=== PATIENT | female | born 1970 | race Caucasian/White ===

== ENCOUNTER → 2016-08-02 | Outpatient (CLI) | payer BC ==
[2016-08-02 15:25] VITALS: BP 132/70; PULSE 98; RESP 16; TEMP 98.2
--- NOTE | 2016-08-03 07:12 | PN ---
DATE OF SERVICE: 08/02/2016 CHIEF COMPLAINT: Bariatric assessment. HISTORY OF PRESENT ILLNESS: Lacey Fuentes is a 46-year-old female for which her birthday is today, who had an adjustable gastric band removal on 07/12/2016. She is a little less than 3 weeks out. She reports having the adjustable gastric band for several years. Her highest weight was 268 pounds for a 5 foot 9 frame. She comes in weighing 229 pounds. She has been able to maintain a 39 pound weight loss with her adjustable gastric band; however, she had severe intolerance including gastric prolapse and complications from her band. Now she comes in for further evaluation for correction of her hiatal hernia. At her height of 5 foot 9, her ideal body weight is 168 pounds. Her previous body mass index was 39.7. Today she comes in with body mass index of 33.8. She has 39% excess weight loss. Separately, she also reports severe lower back pain including history of gout. She has bilateral hip pain including the left knee osteoarthritis. She has hypertension including known history of obstructive sleep apnea. At present, she has morbid obesity-related symptoms and now is looking for further surgical intervention. PAST MEDICAL HISTORY: 1. Sleep apnea. 2. Osteoarthritis of the bilateral hips. 3. Osteoarthritis of the bilateral knees. 4. Gastroesophageal reflux disease. 5. Obstructive sleep apnea. PAST SURGICAL HISTORY: 1. Removal of adjustable gastric band. 2. Upper endoscopy. MEDICATIONS: 1. Multivitamin. 2. Vyvanse. 3. Probiotics. 4. [place]. 5. Estradiol. 6. Calcium. 7. Vitamin C. ALLERGIES: ASPIRIN. SOCIAL HISTORY: Remote tobacco use. FAMILY HISTORY: Pertinent for morbid obesity. REVIEW OF SYSTEMS: CONSTITUTIONAL: Highest weight of 268 pounds. [place] body weight of 168 pounds. She is 61 pounds overweight. Percent excess weight loss is 39%. GASTROINTESTINAL: History of severe gastroesophageal reflux disease including hiatal hernia. Had intolerance to the gastric band for which her symptoms of reflux have improved. ENDOCRINE: No reports of thyroid or blood sugar glucose intolerance. HEENT: No troubles with vision or hearing. Has intermittent dysphagia. CHEST: No reports of dyspnea on exertion. Has history of snoring. No recent evaluation for obstructive sleep apnea. CARDIOVASCULAR: No reports of heart attack or chest pain. MUSCULOSKELETAL: Has osteoarthritis of the diffuse joints. NEURO: No reports of stroke or seizure disorders. PSYCH: History of depression without suicidal ideation. HEMATOLOGIC: No reports of easy bruising or bleeding. PHYSICAL EXAM: VITAL SIGNS: 98.2, 98, 16, 132/70, 5 foot 9, 229 pounds. Body mass is 33.8. GENERAL: Well-developed, pleasant female in no acute distress. ABDOMEN: All incisions granulated. No palpable incisional hernias or seromas. HEENT: No scleral icterus. Extraocular movements grossly intact. Moist mucosa. NECK: Supple without lymphadenopathy. CHEST: Nonlabored respirations. Equal bilateral excursions. CARDIOVASCULAR: Regular rate and rhythm. MUSCULOSKELETAL: No clubbing, cyanosis, or edema. Cranial nerves 2 through 12 grossly within normal limits. NEURO: No focal or lateralizing signs. Grossly within normal limits. PSYCH: Appropriate affect. Alert and oriented to person, place, and time. ASSESSMENT: 1. Morbid obesity due to excess calories. 2. Body mass index reduced from 39.7 down to 33.8. 3. History of complications from adjustable gastric band. 4. Gastroesophageal reflux disease. 5. Hypertension. 6. Obstructive sleep apnea. 7. Left knee osteoarthritis. 8. Bilateral osteoarthritis. 9. Gout. 10. 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 11. Dietary surveillance and counseling. 12. Diaphragmatic hiatal hernia. PLAN: 1. She had complications from her adjustable gastric band, including gastric prolapse as well as intolerance to adjustments. Her band is now removed and she has improvement of her symptoms. 2. She has a symptomatic diaphragmatic hernia and has persistent epigastric abdominal pain. She will need surgical correction with a laparoscopic hiatal hernia repair. 3. With her morbid obesity, she still has comorbidities related to her obesity, which would be corrected with weight loss. Alternatives including a sleeve gastrectomy and a Mariya-en-Y gastric bypass were described in detail. Given the severity of her reflux, she is looking into a Mariya-en-Y gastric bypass. 4. As she has untreated obstructive sleep apnea, recommend a sleep study assessment. 5. As she is a revisional procedure, she is much higher risk for leaks, bleeding, and complication of infection. She demonstrated understanding of the risks. 6. Will likely need at least 2 days inpatient hospitalization. 7. Deep venous thrombosis prophylaxis. 8. Antibiotic prophylaxis. 9. Again, recommend correction of her obstructive sleep apnea. [facility] NETWORKHerman
== END | disposition home or self-care (01) ==
LOC: BARWHC3 14:29
PROVIDERS: ATTEND Surgery Plastic and Reconstructive Surgery
DX: Z48.815 Encounter for surgical aftercare following surgery on the digestive system (principal); E66.01 Morbid (severe) obesity due to excess calories; Z68.33 Body mass index [BMI] 33.0-33.9, adult; Z98.84 Bariatric surgery status; K21.9 Gastro-esophageal reflux disease without esophagitis; I10 Essential (primary) hypertension; G47.33 Obstructive sleep apnea (adult) (pediatric); M17.12 Unilateral primary osteoarthritis, left knee; M10.9 Gout, unspecified; M47.9 Spondylosis, unspecified
CPT/HCPCS: 99211

== ENCOUNTER → 2016-08-07 | Outpatient (CLI) | payer BC ==
[2016-08-07 13:24] VITALS: BMI 33.7
== END | disposition home or self-care (01) ==
LOC: BARWHC3 08:57
PROVIDERS: ATTEND Surgery Plastic and Reconstructive Surgery
DX: Z71.3 Dietary counseling and surveillance (principal); E66.01 Morbid (severe) obesity due to excess calories; Z68.35 Body mass index [BMI] 35.0-35.9, adult
CPT/HCPCS: 97804

== ENCOUNTER 2016-08-09 10:48 | Emergency (ER) | payer BC ==
[2016-08-09] MEDS ORDERED: SODIUM CHLORIDE 0.9% 500 ML IV STA (12:31)
[2016-08-09] MEDS ORDERED: MECLIZINE 12.5 MG TAB PO STA (12:32)
[2016-08-09 12:48] LABS: Basophils # (A) 0.1 k/uL (0-0.2); Basophils % (A) 1 %; CH 29.3; CHCM 33.7; Eosinophils # (A) 0.3 k/uL (0-0.7); Eosinophils % (A) 5 %; HCT 39.4 % (34.0-46.0); HDW 2.55; HGB 12.8 gm/dL (11.4-16.0); Luc # (Auto) 0.16; Luc % (Auto) 3; Lymphocytes # (A) 1.6 k/uL (1.0-4.8); Lymphocytes % (A) 24 %; MCH 28.4 pg (25.0-35.0); MCHC 32.5 g/dL (31.0-37.0); MCV 87.4 fL (80.0-100.0); Mean Platelet Volume 7.9; Monocytes # (A) 0.5 k/uL (0-1.0); Monocytes % (A) 7 %; Neutrophils % (A) 61 %; RDW 12.6 % (11.5-15.5); WBC 6.5 k/uL (3.8-10.6); WBC (Perox) 6.56
--- NOTE | 2016-08-09 12:58 | ED ---
General Adult HPI - General Chief complaint: ENT Stated complaint: light headed Time Seen by Provider: 08/09/16 12:22 Source: patient, RN notes reviewed Mode of arrival: ambulatory Limitations: no limitations - History of Present Illness Initial comments: 46-year-old female presents emergency 5 chief complaint of lightheadedness and left-sided ear pain. Patient states that for about 2 or 3 weeks now she's had this lightheadedness/dizziness. Patient describes it as if the room is spinning to go black. Patient statesshe moves her head from her left shoulder forward that she has that sensation. Patient states sometimes it happens when changing position. Patient states that her vision just kind of goes black but she does not pass out. Patient states she has been having some left-sided ear pain as well with this. Patient states that she does have chronic problems with her ears and she is having ENT. Patient states that this pain started over the last few weeks prior to the lightheadedness occurring. Patient states she has not had any chest pain or shortness of breath with this. Patient denies any nausea or vomiting. Patient states she was concerned due to the continued symptoms and pain so she thought that she should be evaluated.Patient denies any recent fever, chills, shortness of breath, chest pain, back pain, abdominal pain, nausea vomiting, numbness or tingling, dysuria or hematuria, constipation or diarrhea, headaches or visual changes, or any other current symptoms. - Related Data Home Medications Medication Instructions Recorded Confirmed Ascorbic Acid [Vitamin C] 2 tab PO DAILY 07/05/16 08/09/16 Calcium Carbonate/Vitamin D3 1 tab PO DAILY 07/05/16 08/09/16 [Calcium 600-Vit D3 400 Caplet] Estradiol [Estrace] 1 tab PO DAILY 07/05/16 08/09/16 L.acidoph,Paracasei, B.lactis 1 tab PO DAILY 07/05/16 08/09/16 [Probiotic] Lisdexamfetamine Dimesylate 1 tab PO DAILY 07/05/16 08/09/16 [Vyvanse] Multivitamins, Thera [Multivitamin] 1 tab PO DAILY 07/05/16 08/09/16 Fluticasone Nasal [place] [Flonase 1 spr EA NOSTRIL DAILY PRN 08/09/16 08/09/16 Nasal [place]] Previous Rx's Medication Instructions Recorded Meclizine [Antivert] 12.5 mg PO Q6H #20 tablet 08/09/16 Allergies Allergy/AdvReac Type Severity Reaction Status Date / Time aspirin Allergy Swelling Verified 08/09/16 11:53 Review of Systems ROS Statement: Those systems with pertinent positive or pertinent negative responses have been documented in the HPI. ROS Other: All systems not noted in ROS Statement are negative. Past Medical History Past Medical History: Osteoarthritis (OA), Sleep Apnea/CPAP/BIPAP Additional Past Medical History / Comment(s): hiatal hernia History of Any Multi-Drug Resistant Organisms: None Reported Past Surgical History: Bariatric Surgery, Hysterectomy Additional Past Surgical History / Comment(s): GASTRIC BAND SURGERY GASTRIC BAND REMOVAL 07-12-16 Past Anesthesia/Blood Transfusion Reactions: No Reported Reaction Past Psychological History: ADD/ADHD, Depression Smoking Status: Former smoker Past Alcohol Use History: Occasional, Rare Past Drug Use History: None Reported General Exam - General Exam Comments Initial Comments: General: The patient is awake and alert, in no distress, and does not appear acutely ill. Eye: Pupils are equal, round and reactive to light, extra-ocular movements are intact; there is normal conjunctiva bilaterally. No signs of icterus. Ears, nose, mouth and throat: There are moist mucous membranes and no oral lesions. Patient does appear to have fluid and bulging behind the left tympanic membrane no associated erythema noted. Neck: The neck is supple, there is no tenderness. Cardiovascular: There is a regular rate and rhythm. No murmur, rub or gallop is appreciated. Respiratory: Lungs are clear to auscultation, respirations are non-labored, breath sounds are equal. No wheezes, stridor, rales, or rhonchi. Gastrointestinal: Soft, non-distended, non-tender abdomen without masses or organomegaly noted. There is no rebound or guarding present. No CVA tenderness. Bowel sounds are unremarkable. Back: There is no tenderness to palpation in the midline. There is no obvious deformity. No rashes noted. Musculoskeletal: Normal ROM, no tenderness, There is no pedal edema. There is no calf tenderness or swelling. Sensation intact. Pulses equal bilaterally 2+. Neurological: CN II-XII intact, There are no obvious motor or sensory deficits. Coordination appears grossly intact. Speech is normal. Skin: Skin is warm and dry and no rashes or lesions are noted. Psychiatric: Cooperative, appropriate mood & affect, normal judgment. Limitations: no limitations Course Vital Signs 08/09/16 08/09/16 08/09/16 10:52 14:11 14:13 Temperature 97.7 F Pulse Rate 85 70 Pulse Rate [ 79 Right Sitting Pulse Oximetery ] Pulse Rate [ 88 Right Standing Pulse Oximetery ] Pulse Rate [ 72 Right Supine Pulse Oximetery ] Respiratory 20 16 Rate Blood Pressure 136/78 104/56 Blood Pressure 122/67 [Left Arm Sitting] Blood Pressure 122/77 [Left Arm Standing] Blood Pressure 113/63 [Left Arm Supine] O2 Sat by Pulse 99 100 Oximetry EKG Findings - EKG Comments: EKG Findings:: normal sinus rhythm 70 bpm, normal axis, no atopy, no S-T depressions or elevations, Medical Decision Making - Medical Decision Making 46-year-old female presents with what sounds more like dizziness and left ear pain. She is to symptoms with certain movements of the head patient's or those are negative at this time. At this time patient's lab work is reviewed as well as CAT scan which are negative. Patient did have improvement to her symptoms with the Antivert and is able to move head better without the lightheadedness/ dizziness occurring. At this time we discussed her symptoms are most likely vertigo. We did discuss that we'll start her on Antivert. We did discuss follow-up with ENT and she was given Dr. Hamilton's information. Patient stated that she understood and all her questions have been answered. She will be discharged home. - Lab Data Result diagrams: 08/09/16 12:40 08/09/16 12:40 Lab Results 08/09/16 08/09/16 08/09/16 Range/Units 12:40 12:40 12:40 WBC 6.5 (3.8-10.6) k/uL RBC 4.50 (3.80-5.40) m/uL Hgb 12.8 (11.4-16.0) gm/dL Hct 39.4 (34.0-46.0) % MCV 87.4 (80.0-100.0) fL MCH 28.4 (25.0-35.0) pg MCHC 32.5 (31.0-37.0) g/dL RDW 12.6 (11.5-15.5) % Plt Count 275 (150-450) k/uL Neutrophils % 61 % Lymphocytes % 24 % Monocytes % 7 % Eosinophils % 5 % Basophils % 1 % Neutrophils # 4.0 (1.3-7.7) k/uL Lymphocytes # 1.6 (1.0-4.8) k/uL Monocytes # 0.5 (0-1.0) k/uL Eosinophils # 0.3 (0-0.7) k/uL Basophils # 0.1 (0-0.2) k/uL Sodium 142 (137-145) mmol/L Potassium 4.2 (3.5-5.1) mmol/L Chloride 105 (98-107) mmol/L Carbon Dioxide 28 (22-30) mmol/L Anion Gap 9 mmol/L BUN 10 (7-17) mg/dL Creatinine 0.70 (0.52-1.04) mg/dL Est GFR (MDRD) Af Amer >60 (>60 ml/min/1.73 sqM) Est GFR (MDRD) Non-Af >60 (>60 ml/min/1.73 sqM) Glucose 93 (74-99) mg/dL Calcium 8.8 (8.4-10.2) mg/dL Total Bilirubin 0.2 (0.2-1.3) mg/dL AST 24 (14-36) U/L ALT 41 (9-52) U/L Alkaline Phosphatase 73 (38-126) U/L Troponin I <0.012 (0.000-0.034) ng/mL Total Protein 6.3 (6.3-8.2) g/dL Albumin 3.7 (3.5-5.0) g/dL Urine Color Urine Appearance (Clear) Urine pH (5.0-8.0) Ur Specific [place] (1.001-1.035) Urine Protein (Negative) Urine Glucose (UA) (Negative) Urine Ketones (Negative) Urine Blood (Negative) Urine Nitrate (Negative) Urine Bilirubin (Negative) Urine Urobilinogen (<2.0) mg/dL Ur Leukocyte Esterase (Negative) 08/09/16 Range/Units 12:55 WBC (3.8-10.6) k/uL RBC (3.80-5.40) m/uL Hgb (11.4-16.0) gm/dL Hct (34.0-46.0) % MCV (80.0-100.0) fL MCH (25.0-35.0) pg MCHC (31.0-37.0) g/dL RDW (11.5-15.5) % Plt Count (150-450) k/uL Neutrophils % % Lymphocytes % % Monocytes % % Eosinophils % % Basophils % % Neutrophils # (1.3-7.7) k/uL Lymphocytes # (1.0-4.8) k/uL Monocytes # (0-1.0) k/uL Eosinophils # (0-0.7) k/uL Basophils # (0-0.2) k/uL Sodium (137-145) mmol/L Potassium (3.5-5.1) mmol/L Chloride (98-107) mmol/L Carbon Dioxide (22-30) mmol/L Anion Gap mmol/L BUN (7-17) mg/dL Creatinine (0.52-1.04) mg/dL Est GFR (MDRD) Af Amer (>60 ml/min/1.73 sqM) Est GFR (MDRD) Non-Af (>60 ml/min/1.73 sqM) Glucose (74-99) mg/dL Calcium (8.4-10.2) mg/dL Total Bilirubin (0.2-1.3) mg/dL AST (14-36) U/L ALT (9-52) U/L Alkaline Phosphatase (38-126) U/L Troponin I (0.000-0.034) ng/mL Total Protein (6.3-8.2) g/dL Albumin (3.5-5.0) g/dL Urine Color Yellow Urine Appearance Clear (Clear) Urine pH 5.5 (5.0-8.0) Ur Specific [place] 1.010 (1.001-1.035) Urine Protein Negative (Negative) Urine Glucose (UA) Negative (Negative) Urine Ketones Negative (Negative) Urine Blood Negative (Negative) Urine Nitrate Negative (Negative) Urine Bilirubin Negative (Negative) Urine Urobilinogen <2.0 (<2.0) mg/dL Ur Leukocyte Esterase Negative (Negative) Disposition Clinical Impression: Vertigo Disposition: HOME SELF-CARE Condition: Stable Instructions: Vertigo (ED) Additional Instructions: Please use medication as discussed. Please follow up with family doctor if symptoms have not improved over the next two days. Please return to the emergency room if your symptoms increase or worsen or for any other concerns. Prescriptions: Meclizine [Antivert] 12.5 mg PO Q6H #20 tablet Referrals: Arjun Woodruff MD [Primary Care Provider] - 1-2 days Tucker Arzate MD [STAFF PHYSICIAN] - 1-2 days Time of Disposition: 14:59
[2016-08-09 13:00] LABS: ALT 41 U/L (9-52); AST 24 U/L (14-36); Alkaline Phosphatase 73 U/L (38-126); Anion Gap 9 mmol/L; Blood Urea Nitrogen 10 mg/dL (7-17); Calcium 8.8 mg/dL (8.4-10.2); Carbon Dioxide 28 mmol/L (22-30); Chloride 105 mmol/L (98-107); Glucose 93 mg/dL (74-99); Non-African American GFR(MDRD) >60 (>60 ml/min/1.73 sqM); Potassium 4.2 mmol/L (3.5-5.1); Sodium 142 mmol/L (137-145); Total Bilirubin 0.2 mg/dL (0.2-1.3); Total Protein 6.3 g/dL (6.3-8.2)
[2016-08-09 13:03] LABS: Appearance,Urine Clear (Clear); Bilirubin,Urine Negative (Negative); Glucose,Urine (UA) Negative (Negative); Ketones,Urine Negative (Negative); Leukocyte Esterase,Urine Negative (Negative); Nitrite,Urine Negative (Negative); PH, Urine 5.5 (5.0-8.0); Protein,Urine Negative (Negative); UA Billing (MACRO vs. MICRO) CHEM; Urobilinogen,Urine <2.0 mg/dL (<2.0)
--- NOTE | 2016-08-09 14:11 | XR ---
EXAMINATION TYPE: XR chest 2V DATE OF EXAM: 08/09/2016 2:07 PM COMPARISON: NONE HISTORY: Shortness of breath per order TECHNIQUE: Frontal and lateral views of the chest are obtained. FINDINGS: There is no focal air space opacity, pleural effusion, or pneumothorax seen. The cardiac silhouette size is within normal limits. The osseous structures are intact. IMPRESSION: No acute cardiopulmonary process.
[2016-08-09 14:14] VITALS: BP 104/56; PULSE 70; RESP 16
--- NOTE | 2016-08-09 14:35 | CT ---
EXAMINATION TYPE: CT brain wo con DATE OF EXAM: 08/09/2016 2:15 PM COMPARISON: NONE HISTORY: Light headedness CT DLP: 1216 mGycm Automated exposure control for dose reduction was used. FINDINGS: There is no acute intracranial hemorrhage, mass effect, or midline shift identified. The ventricles and sulci are within normal limits in size. Some ill-defined low attenuation is present in the perive ntricular white matter. The globes are intact and the visualized sinuses are remarkable for inflamma tory change in the left maxillary sinus and ethmoid air cell. IMPRESSION: No acute intracranial hemorrhage, mass effect, or midline shift is seen. White matter demyelination i s nonspecific, brain MRI may be of benefit.
[2016-08-09 15:06] VITALS: TEMP 98.2
== END 2016-08-09 15:10 | disposition home or self-care (01) ==
LOC: EC 10:48
DX: R42 Dizziness and giddiness (principal); Z79.899 Other long term (current) drug therapy; Z79.890 Hormone replacement therapy; Z88.6 Allergy status to analgesic agent; G47.30 Sleep apnea, unspecified; F90.9 Attention-deficit hyperactivity disorder, unspecified type; Z87.891 Personal history of nicotine dependence; H92.02 Otalgia, left ear
CPT/HCPCS: 36415; 70450; 71020; 80053; 81003; 84484; 85025; 93005; 99284

== ENCOUNTER 2016-09-11 06:32 | Inpatient (IN) | payer BC ==
--- NOTE | 2016-09-10 14:36 | P.GSHP ---
History of Present Illness H&P Date: 09/11/16 DATE OF SERVICE: 09/11/2016 CHIEF COMPLAINT: Bariatric assessment. HISTORY OF PRESENT ILLNESS: Lacey Fuentes is a 46-year-old female for which her birthday is today, who had an adjustable gastric band removal on 07/12/2016. She is a little less than 3 weeks out. She reports having the adjustable gastric band for several years. Her highest weight was 268 pounds for a 5 foot 9 frame. She comes in weighing 229 pounds. She has been able to maintain a 39 pound weight loss with her adjustable gastric band; however, she had severe intolerance including gastric prolapse and complications from her band. Now she comes in for further evaluation for correction of her hiatal hernia. At her height of 5 foot 9, her ideal body weight is 168 pounds. Her previous body mass index was 39.7. Today she comes in with body mass index of 33.8. She has 39% excess weight loss. Separately, she also reports severe lower back pain including history of gout. She has bilateral hip pain including the left knee osteoarthritis. She has hypertension including known history of obstructive sleep apnea. She presents to undergo a Mariya-en-Y gastric bypass. PAST MEDICAL HISTORY: 1. Sleep apnea. 2. Osteoarthritis of the bilateral hips. 3. Osteoarthritis of the bilateral knees. 4. Gastroesophageal reflux disease. 5. Obstructive sleep apnea. 6. Vertigo. PAST SURGICAL HISTORY: 1. Removal of adjustable gastric band. 2. Upper endoscopy. MEDICATIONS: 1. Multivitamin. 2. Vyvanse. 3. Probiotics. 4. [place]. 5. Estradiol. 6. Calcium. 7. Vitamin C. ALLERGIES: ASPIRIN. SOCIAL HISTORY: Remote tobacco use. FAMILY HISTORY: Pertinent for morbid obesity. REVIEW OF SYSTEMS: CONSTITUTIONAL: Highest weight of 268 pounds. [place] body weight of 168 pounds. She is 61 pounds overweight. Percent excess weight loss is 39%. GASTROINTESTINAL: History of severe gastroesophageal reflux disease including hiatal hernia. Had intolerance to the gastric band for which her symptoms of reflux have improved. ENDOCRINE: No reports of thyroid or blood sugar glucose intolerance. HEENT: No troubles with vision or hearing. Has intermittent dysphagia. Has vertigo. CHEST: No reports of dyspnea on exertion. Has history of snoring. No recent evaluation for obstructive sleep apnea. CARDIOVASCULAR: No reports of heart attack or chest pain. MUSCULOSKELETAL: Has osteoarthritis of the diffuse joints. NEURO: No reports of stroke or seizure disorders. PSYCH: History of depression without suicidal ideation. HEMATOLOGIC: No reports of easy bruising or bleeding. PHYSICAL EXAM: VITAL SIGNS: 98.2, 98, 16, 132/70, 5 foot 9, 229 pounds. Body mass is 33.8. GENERAL: Well-developed, pleasant female in no acute distress. ABDOMEN: All incisions granulated. No palpable incisional hernias or seromas. HEENT: No scleral icterus. Extraocular movements grossly intact. Moist mucosa. NECK: Supple without lymphadenopathy. CHEST: Nonlabored respirations. Equal bilateral excursions. CARDIOVASCULAR: Regular rate and rhythm. MUSCULOSKELETAL: No clubbing, cyanosis, or edema. Cranial nerves 2 through 12 grossly within normal limits. NEURO: No focal or lateralizing signs. Grossly within normal limits. PSYCH: Appropriate affect. Alert and oriented to person, place, and time. ASSESSMENT: 1. Morbid obesity due to excess calories. 2. Body mass index reduced from 39.7 down to 33.8. 3. History of complications from adjustable gastric band. 4. Gastroesophageal reflux disease. 5. Hypertension. 6. Obstructive sleep apnea. 7. Left knee osteoarthritis. 8. Bilateral osteoarthritis. 9. Gout. 10. 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 11. Dietary surveillance and counseling. 12. Diaphragmatic hiatal hernia. 13. Vertigo. PLAN: 1. She had complications from her adjustable gastric band, including gastric prolapse as well as intolerance to adjustments. Her band is now removed and she has improvement of her symptoms. 2. She has a symptomatic diaphragmatic hernia and has persistent epigastric abdominal pain. She will need surgical correction with a laparoscopic hiatal hernia repair. 3. With her morbid obesity, she still has comorbidities related to her obesity, which would be corrected with weight loss. Alternatives including a sleeve gastrectomy and a Mariya-en-Y gastric bypass were described in detail. Given the severity of her reflux, she is looking into a Mariya-en-Y gastric bypass. 4. As she has untreated obstructive sleep apnea, recommend treatment. 5. As she is a revisional procedure, she is much higher risk for leaks, bleeding, and complication of infection. She demonstrated understanding of the risks. 6. Will likely need at least 2 days inpatient hospitalization. 7. Deep venous thrombosis prophylaxis. 8. Antibiotic prophylaxis. Past Medical History Past Medical History: Osteoarthritis (OA) Additional Past Medical History / Comment(s): hiatal hernia, migraines, History of Any Multi-Drug Resistant Organisms: None Reported Past Surgical History: Bariatric Surgery, Section, Hysterectomy, Tonsillectomy, Tubal Ligation Additional Past Surgical History / Comment(s): LAP BAND SURGERY x 2, LAP BAND REMOVAL x 2, tubal reversal Past Anesthesia/Blood Transfusion Reactions: No Reported Reaction Past Psychological History: ADD/ADHD Smoking Status: Former smoker Past Alcohol Use History: Rare Additional Past Alcohol Use History / Comment(s): quit smoking 5 yrs ago, smoked for 15 yrs, couple cigarettes daily Past Drug Use History: None Reported - Past Family History Mother Family Medical History: Deep Vein Thrombosis (DVT) Sister(s) Family Medical History: Deep Vein Thrombosis (DVT) Father Family Medical History: Deep Vein Thrombosis (DVT) Medications and Allergies Home Medications Medication Instructions Recorded Confirmed Type Ascorbic Acid [Vitamin C] 1,000 mg PO DAILY 07/05/16 09/05/16 History Calcium Carbonate/Vitamin D3 1 tab PO DAILY 07/05/16 09/05/16 History [Calcium 600-Vit D3 400 Caplet] Estradiol [Estrace] 2 mg PO DAILY 07/05/16 09/05/16 History L.acidoph,Paracasei, B.lactis 1 tab PO DAILY 07/05/16 09/05/16 History [Probiotic] Lisdexamfetamine Dimesylate 40 mg PO DAILY 07/05/16 09/05/16 History [Vyvanse] Multivitamins, Thera [Multivitamin] 1 tab PO DAILY 07/05/16 09/05/16 History Fluticasone Nasal [place] [Flonase 1 spr EA NOSTRIL DAILY 08/09/16 09/05/16 History Nasal [place]] Meclizine [Antivert] 12.5 mg PO Q6H PRN 09/05/16 09/05/16 History SUMAtriptan SUCCINATE [Imitrex] 50 mg PO DIRECTED PRN 09/05/16 09/05/16 History Allergies Allergy/AdvReac Type Severity Reaction Status Date / Time aspirin Allergy bloody nose Verified 09/05/16 08:26
[~2016-09-11 06:32] MED LIST: ACETAMINOPHEN IV (For NPO) 1,000 MG in EMPTY BAG 1 BAG IVPB ONE; CHLORHEXIDINE GLUCONATE 15 ML CUP MUCOUS MEM ONE; DEXAMETHASONE SOD PHOSPHATE 10 MG/ML 1 ML VIAL IV ONE; ENOXAPARIN 40 MG/0.4 ML SYRINGE SQ ONE; ENOXAPARIN 40 MG/0.4 ML SYRINGE SQ STA; LACTATED RINGERS 1,000 ML IV SCH; MIDAZOLAM 2 MG/2 ML VIAL IV PRN; ONDANSETRON 4 MG/2 ML VIAL IVP ONE; PANTOPRAZOLE 40 MG/10 ML VIAL IV STA; SCOPOLAMINE 1.5MG/72HR PATCH TRANSDERM ONE; ceFAZolin 2 GM in SODIUM CHLORIDE 0.9% 100 ML IVPB ONE
[2016-09-11 06:58] VITALS: RESP 16
[2016-09-11] MEDS: LACTATED RINGERS 1,000 ML IV SCH ×2 (06:59→14:11)
[2016-09-11] MEDS ORDERED: LIDOCAINE 1% 20 ML VIAL (10MG/ML) FOR IV START SQ ONE (06:59)
[2016-09-11] MEDS ORDERED: BUPIVACAINE LIPOSOME/PF 1.3% 20 ML, BUPIVACAIN-EPI 0.5%-1:200,000 25 ML, SODIUM CHLORID... MISCELLANE ONE ×3 (07:00)
[2016-09-11] MEDS: ONDANSETRON 4 MG/2 ML VIAL IVP ONE ×2 (07:18→12:44)
[2016-09-11 07:22] LABS: Basophils # (A) 0.1 k/uL (0-0.2); Basophils % (A) 1 %; CH 29.6; CHCM 34.3; Eosinophils # (A) 0.4 k/uL (0-0.7); Eosinophils % (A) 7 %; HCT 38.6 % (34.0-46.0); HDW 2.48; HGB 13.1 gm/dL (11.4-16.0); Luc # (Auto) 0.15; Luc % (Auto) 3; Lymphocytes # (A) 1.6 k/uL (1.0-4.8); Lymphocytes % (A) 28 %; MCH 29.4 pg (25.0-35.0); MCV 86.4 fL (80.0-100.0); Mean Platelet Volume 8.4; Monocytes # (A) 0.3 k/uL (0-1.0); Monocytes % (A) 5 %; Neutrophils # (A) 3.1 k/uL (1.3-7.7); Neutrophils % (A) 56 %; RBC 4.47 m/uL (3.80-5.40); RDW 12.6 % (11.5-15.5); WBC 5.5 k/uL (3.8-10.6); WBC (Perox) 5.62
[2016-09-11] MEDS ORDERED: NEOSTIGMINE 1 MG/ML 10 ML VIAL ONE (07:28)
[2016-09-11] MEDS ORDERED: SUCCINYLCHOLINE CHLORIDE 100 MG/5 ML SYR IV ONE (07:28)
[2016-09-11] MEDS ORDERED: ePHEDrine 50 MG/ML 1 ML AMP ONE (07:28)
[2016-09-11] MEDS ORDERED: LIDOCAINE 1% INJ 10MG/ML (20 ML MDV) ONE (07:28)
[2016-09-11] MEDS ORDERED: GLYCOPYRROLATE 0.2 MG/ML 2 ML VIAL ONE (07:28)
[2016-09-11] MEDS ORDERED: PHENYLEPHRINE-0.9% NACL SYG 1 MG/10 ML SYRINGE ONE (07:28)
[2016-09-11] MEDS ORDERED: fentaNYL (PF) 50 MCG/ML 2 ML AMP ONE (07:28)
[2016-09-11] MEDS ORDERED: PROPOFOL 10 MG/ML 20 ML VIAL IV ONE (07:28)
[2016-09-11] MEDS ORDERED: MIDAZOLAM 2 MG/2 ML VIAL ONE (07:28)
[2016-09-11] MEDS ORDERED: ROCURONIUM BROMIDE 10 MG/ML 10 ML VIAL IV ONE (07:28)
[2016-09-11 07:31] LABS: AST 27 U/L (14-36); Alkaline Phosphatase 67 U/L (38-126); Anion Gap 11 mmol/L; Blood Urea Nitrogen 13 mg/dL (7-17); Calcium 9.3 mg/dL (8.4-10.2); Carbon Dioxide 25 mmol/L (22-30); Chloride 105 mmol/L (98-107); Glucose 78 mg/dL (74-99); Non-African American GFR(MDRD) >60 (>60 ml/min/1.73 sqM); Potassium 4.4 mmol/L (3.5-5.1); Sodium 141 mmol/L (137-145); Total Bilirubin 0.6 mg/dL (0.2-1.3); Total Protein 7.3 g/dL (6.3-8.2)
[2016-09-11 07:36] LABS: ALT 38 U/L (9-52)
[2016-09-11] MEDS ORDERED: LACTATED RINGERS 1,000 ML IV ONE ×2 (08:58→10:31)
--- NOTE | 2016-09-11 11:56 | P.PCN ---
Date of Procedure: 09/11/16 Preoperative Diagnosis: Morbid obesity Postoperative Diagnosis: Morbid obesity Procedure(s) Performed: 1. Laparoscopic lysis of adhesions over 1-1/2 hour. 2. Laparoscopic Mariya-en-Y gastric bypass, 75 cm, 25 mm Tez. 3. Upper endoscopy retrieval foreign body from gastric pouch. 4. Laparoscopic paraesophageal diaphragmatic hiatal hernia, midline, 4 cm, repair with Gamaliel Biopatch a 8 x 8 cm. 5. Intraoperative esophagogastrojejunoscopy. 6. Placement of round of 19 drain anterior to the anastomosis via left upper quadrant. 7. Placement of [place] drain left upper quadrant incision. Anesthesia: GETA, regional Surgeon: Kayleigh Workman Estimated Blood Loss (ml): 50 Pathology: none sent Condition: stable Disposition: floor Operative Findings: 2 purple 60s, 2 purple 60 reinforced staplers, 75 cm antigastric antecolic anastomosis
[2016-09-11] MEDS ORDERED: HYDROcodone/APAP 15 ML SOLUTION PO PRN (11:58)
[2016-09-11] MEDS ORDERED: ONDANSETRON 4 MG/2 ML VIAL IVP PRN (11:58)
[2016-09-11] MEDS ORDERED: NALOXONE 0.4 MG/ML 1 ML VIAL IV PRN (11:58)
[2016-09-11] MEDS: HYDROmorphone 1 MG/ML 1 ML SYRINGE IVP PRN ×5 (12:40→21:02)
[2016-09-11 14:09] VITALS: BMI 31.5
[2016-09-11] MEDS: 1: MVI, ADULT NO.4 WITH VIT K 10 ML, THIAMINE 100 MG, FOLIC ACID 1 MG, POTASSIUM CHLORID IV SCH ×6 (14:17)
[2016-09-11] MEDS: 0.9% NACL WITH KCL 20 MEQ/L 1,000 ML IV SCH ×3 (15:25→21:06)
[2016-09-11] MEDS: ALBUTEROL NEBULIZED 2.5 MG/3 ML INHALATION SCH ×3 (15:57→20:04)
[2016-09-11] MEDS ORDERED: SODIUM CHLORIDE 0.9% 2,000 ML IV ONE (16:47)
--- NOTE | 2016-09-11 16:48 | P.PN ---
Progress Note - Text Patient seen and evaluated. She still has low urine output. Will bolus 2- Liters. Intra-operative findings reviewed with family and patient.
[2016-09-11] MEDS: ceFAZolin 2 GM in SODIUM CHLORIDE 0.9% 100 ML IVPB SCH (18:09)
[2016-09-12] MEDS: ceFAZolin 2 GM in SODIUM CHLORIDE 0.9% 100 ML IVPB SCH (00:24)
[2016-09-12] MEDS: HYDROmorphone 1 MG/ML 1 ML SYRINGE IVP PRN ×5 (03:10→21:09)
[2016-09-12] MEDS ORDERED: SODIUM CHLORIDE 0.9% 1,000 ML BAG ONE (05:46)
[2016-09-12] MEDS: 1: MVI, ADULT NO.4 WITH VIT K 10 ML, THIAMINE 100 MG, FOLIC ACID 1 MG, POTASSIUM CHLORID IV SCH ×12 (05:46→15:39)
[2016-09-12 07:38] LABS: Basophils % (A) 0 %; CH 28.8; CHCM 32.2; Eosinophils # (A) 0.1 k/uL (0-0.7); Eosinophils % (A) 2 %; HCT 35.5 % (34.0-46.0); HDW 2.46; HGB 11.3 gm/dL (11.4-16.0); Luc # (Auto) 0.13; Luc % (Auto) 2; Lymphocytes # (A) 0.9 k/uL (1.0-4.8); Lymphocytes % (A) 11 %; MCH 28.5 pg (25.0-35.0); MCHC 31.7 g/dL (31.0-37.0); Mean Platelet Volume 7.7; Monocytes # (A) 0.4 k/uL (0-1.0); Monocytes % (A) 5 %; Neutrophils % (A) 81 %; RBC 3.94 m/uL (3.80-5.40); RDW 12.9 % (11.5-15.5); WBC 8.6 k/uL (3.8-10.6); WBC (Perox) 9.09
[2016-09-12] MEDS: PANTOPRAZOLE 40 MG/10 ML VIAL IV SCH (07:59)
[2016-09-12] MEDS: ENOXAPARIN 40 MG/0.4 ML SYRINGE SQ SCH (07:59)
[2016-09-12 08:04] LABS: Anion Gap 10 mmol/L; Blood Urea Nitrogen 5 mg/dL (7-17); Calcium 8.1 mg/dL (8.4-10.2); Carbon Dioxide 21 mmol/L (22-30); Chloride 107 mmol/L (98-107); Magnesium 1.7 mg/dL (1.6-2.3); Non-African American GFR(MDRD) >60 (>60 ml/min/1.73 sqM); Phosphorous 2.4 mg/dL (2.5-4.5); Potassium 4.3 mmol/L (3.5-5.1); Sodium 138 mmol/L (137-145)
[2016-09-12] MEDS: ALBUTEROL NEBULIZED 2.5 MG/3 ML INHALATION SCH ×4 (08:07→19:42)
--- NOTE | 2016-09-12 09:17 | FL ---
EXAMINATION TYPE: FL UGI DATE OF EXAM: 09/12/2016 8:55 AM COMPARISON: 09/02/2010 HISTORY: 46-year-old female postop bariatric surgery, lap and removal on 07/12/2016 and Mariya-en-Y gas tric bypass performed yesterday. TECHNIQUE: A single contrast UGI examination is performed utilizing 20 mL Omnipaque 350. Total fluoroscopy time: 1 minute 6 seconds. FINDINGS: There is a surgical drain in place along the upper abdomen. Patient swallowed oral contrast without without difficulty or delay. However, there is progressive po oling of contrast within the mid to lower esophagus with prominent esophageal contractions and intrae sophageal reflux demonstrated. There is gradual passage into the stomach and across the patient's gas trojejunostomy into proximal small bowel loops. Given the delayed passage from the esophagus, the patient only ingested approximately [address] The 5 minute post examination radiograph shows interval incomplete passage of contrast. No post operative free air. Suggestion of a small left pleural effusion with adjacent atelectasis. So me subcutaneous emphysema is seen along the right side of the abdomen. IMPRESSION: 1. Status post Mariya-en-Y gastric bypass. No evidence for leak. 2. However, there is moderate obstruction at the level of the GE junction. Because of this, the patie nt only ingested 20 mL of contrast and the 5 minute postexam radiograph shows residual contrast in th e lower esophagus. 3. Small left pleural effusion. Extensive subcutaneous emphysema along the right side of the abdomen likely on a postsurgical basis. A surgical drain is present.
--- NOTE | 2016-09-12 14:58 | P.PN ---
Subjective 46-year-old female being seen on rounds this morning. Patient states has been up ambulating in the [place] this morning. States belching but is not passing gas. Patient is postop done on September 11 Laparoscopic lysis of adhesions over 1-1/2 hour. Laparoscopic Mariya-en-Y gastric bypass, 75 cm, 25 mm Tez. . Upper endoscopy retrieval foreign body from gastric pouch. Laparoscopic paraesophageal diaphragmatic hiatal hernia, midline, 4 cm, repair with [place] Biopatch a 8 x 8 cm. Intraoperative esophagogastrojejunoscopy. Placement of round of 19 drain anterior to the anastomosis via left upper quadrant. Placement of [place] drain left upper quadrant incision. Patient states urinating with no difficulty. Did note the patient was given a fluid bolus last evening for a low urine output urine output has picked up his 4300 this morning with no difficulty Objective - Vital Signs Vital signs: Vital Signs Temp 98.6 F 09/12/16 14:32 Pulse 96 09/12/16 14:32 Resp 16 09/12/16 14:32 BP 104/64 09/12/16 14:32 Pulse Ox 97 09/12/16 14:32 Intake & Output 09/11/16 09/12/16 09/12/16 18:59 06:59 18:59 Intake Total 2700 2000 Output Total 250 1810 635 Balance 2450 190 -635 Weight 99.79 kg 99.79 kg Intake: IV 2700 Intake, IV Titration 2000 Amount Sodium Chloride 0.9% 2, 2000 000 ml @ 999 mls/hr IV . Q2H1M ONE Rx#:[id number] Output: Drainage 20 110 60 Left Lower Abdomen 20 110 60 Urine 180 1700 575 Uretheral ([place]) 1700 Estimated Blood Loss 50 Other: Voiding Method Indwelling Catheter Indwelling Catheter Indwelling Catheter # Voids 1 - Exam GENERAL APPEARANCE: 46-year-old female patient is alert, oriented, in no acute distress. Resting in bed states pain medication effective for pain control VITAL SIGNS: Reviewed HEENT: Head is normocephalic and atraumatic. Pupils are equal and reactive. The nares are patent. Oropharynx is clear without lesions. NECK: Supple without lymphadenopathy. Traches midline. HEART: S1, S2. Regular rate and rhythm. Denying chest pain no murmur noted LUNGS: No crackles or wheezes are heard. On room air sats are 94% no cough noted no shortness of breath ABDOMEN: Soft, nontender, nondistended with good bowel sounds. No peritoneal signs. No palpable organomegaly or masses. Surgical sites no redness. Evert- Macias drain in place. EXTREMITIES: Normal skin color and turgor. No cyanosis, rash, ulceration, clubbing or edema. Radial pedal pulses are 2/4 bilaterally. NEUROLOGICAL: No focal deficits. Strength and sensation are grossly intact. - Labs CBC & Chem 7: 09/12/16 07:07 09/12/16 07:05 Labs: Abnormal Lab Results - Last 24 Hours (Table) 09/12/16 09/12/16 Range/Units 07:05 07:07 Hgb 11.3 L (11.4-16.0) gm/dL Lymphocytes # 0.9 L (1.0-4.8) k/uL Carbon Dioxide 21 L (22-30) mmol/L BUN 5 L (7-17) mg/dL Calcium 8.1 L (8.4-10.2) mg/dL Phosphorus 2.4 L (2.5-4.5) mg/dL Assessment and Plan Plan: Impression 1. Morbid obesity 2. Status post September 11 laparoscopic lysis of adhesions Laparoscopic Mariya-en -Y gastric bypass, 75 cm, 25 mm Tez. Upper endoscopy retrieval foreign body from gastric pouch. Laparoscopic paraesophageal diaphragmatic hiatal hernia, midline, 4 cm, repair with [place] Biopatch a 8 x 8 cm. Intraoperative esophagogastrojejunoscopy. Placement of round of 19 drain anterior to the anastomosis via left upper quadrant. Placement of Bicknell drain left upper quadrant incision. 3. Obstructive sleep apnea 4. 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 History of vertigo 6. Esophageal reflux disease Plan Continue postop surgical care Increase activity to the level of tolerance Encourage the use of the incentive spirometer Bariatric clear liquid diet Pain control DVT and GI prophylaxis The above dictated assessment and findings were discussed with dr Workman. Impression and the plan of care have been dictated as directed. Opal Carroll nurse practitioner acting as a scribe for Dr. Workman
--- NOTE | 2016-09-12 19:44 | P.PN ---
Progress Note - Text She is doing very well. She is tolerating liquids. Drain is serosanguinous. She reports appropriate left upper quardrant incisional pain. Dressing intact and to be changed prior to discharge. Plan for discharge home tomorrow after correction of magnesium and phosphate. RICHAR to continue upon discharge. Follow up in the bariatric center in 48 hrs.
[2016-09-12] MEDS: MAGNESIUM SULFATE-D5W PMX 1 GM in DEXTROSE/WATER 1 100ML.BAG IVPB SCH ×3 (20:10→22:11)
[2016-09-12] MEDS: SODIUM PHOSPHATE 10 MMOL in SODIUM CHLORIDE 0.9% 250 ML IVPB SCH (23:16)
[2016-09-13] MEDS: SODIUM PHOSPHATE 10 MMOL in SODIUM CHLORIDE 0.9% 250 ML IVPB SCH ×2 (01:23→03:11)
[2016-09-13] MEDS ORDERED: SODIUM CHLORIDE 0.9% 1,000 ML BAG ONE (01:58)
[2016-09-13] MEDS: 1: MVI, ADULT NO.4 WITH VIT K 10 ML, THIAMINE 100 MG, FOLIC ACID 1 MG, POTASSIUM CHLORID IV SCH ×6 (01:58)
[2016-09-13] MEDS: HYDROmorphone 1 MG/ML 1 ML SYRINGE IVP PRN ×6 (03:08→18:04)
[2016-09-13] MEDS: ALBUTEROL NEBULIZED 2.5 MG/3 ML INHALATION SCH ×3 (07:52→16:32)
[2016-09-13] MEDS: PANTOPRAZOLE 40 MG/10 ML VIAL IV SCH (09:07)
[2016-09-13] MEDS: ENOXAPARIN 40 MG/0.4 ML SYRINGE SQ SCH (09:07)
[2016-09-13 10:20] LABS: Anion Gap 10 mmol/L; Blood Urea Nitrogen <2 mg/dL (7-17); Carbon Dioxide 23 mmol/L (22-30); Chloride 104 mmol/L (98-107); Glucose 111 mg/dL (74-99); Magnesium 2.2 mg/dL (1.6-2.3); Non-African American GFR(MDRD) >60 (>60 ml/min/1.73 sqM); Phosphorous 1.8 mg/dL (2.5-4.5); Potassium 3.6 mmol/L (3.5-5.1); Sodium 137 mmol/L (137-145)
[2016-09-13 10:25] LABS: Basophils % (A) 0 %; CH 29.7; CHCM 33.6; Eosinophils # (A) 0.5 k/uL (0-0.7); Eosinophils % (A) 6 %; HCT 35.9 % (34.0-46.0); HDW 2.49; HGB 11.7 gm/dL (11.4-16.0); Luc # (Auto) 0.12; Luc % (Auto) 1; Lymphocytes # (A) 1.2 k/uL (1.0-4.8); Lymphocytes % (A) 15 %; MCHC 32.7 g/dL (31.0-37.0); MCV 88.8 fL (80.0-100.0); Mean Platelet Volume 8.2; Monocytes # (A) 0.4 k/uL (0-1.0); Monocytes % (A) 5 %; Neutrophils # (A) 6.1 k/uL (1.3-7.7); Neutrophils % (A) 72 %; RBC 4.04 m/uL (3.80-5.40); RDW 13.2 % (11.5-15.5); WBC 8.4 k/uL (3.8-10.6); WBC (Perox) 7.66
[2016-09-13] MEDS: SODIUM PHOSPHATE 10 MMOL in SODIUM CHLORIDE 0.9% 100 ML IVPB SCH ×3 (12:17→16:02)
--- NOTE | 2016-09-13 12:17 | P.PN ---
Subjective 46-year-old female being seen on rounds this morning is resting in bed. Patient states she's been up ambulating in the hallway several times this morning. Patient states she has been belching but passing no rectal gas. No stool. Tolerating diet. Denying any shortness of breath or chest pain with activity Did note the labs phosphorus level was low 1.8 which replacement is being given the magnesium has been corrected it's 2.2 it was 1.7 potassium 3.6 Objective - Vital Signs Vital signs: Vital Signs Temp 97.9 F 09/13/16 07:00 Pulse 74 09/13/16 11:44 Resp 16 09/13/16 07:16 BP 104/68 09/13/16 07:00 Pulse Ox 98 09/13/16 07:00 Intake & Output 09/12/16 09/13/16 09/13/16 18:59 06:59 18:59 Intake Total 1021.2 Output Total 905 350 200 Balance 116.2 -350 -200 Weight 99.79 kg 99.79 kg Intake: Intake, IV Titration 1021.2 Amount Mvi, Adult No.4 with Vit 1021.2 K 10 ml Thiamine 100 mg Folic Acid 1 mg Potassium Chloride 20 meq In Sodium Chloride 0.9% 1, 000 ml @ 100 mls/hr IV . [facility] Rx#: [id number] Output: Drainage 130 150 Left Lower Abdomen 130 150 Urine 775 200 200 Other: Voiding Method Indwelling Catheter Toilet Toilet # Voids 1 1 1 - Exam GENERAL APPEARANCE: 46-year-old female patient is alert, oriented, in no acute distress. States has been up ambulating in the hallway couple times this morning no chest pain no shortness breath with activity VITAL SIGNS: Reviewed HEENT: Head is normocephalic and atraumatic. Pupils are equal and reactive. The nares are patent. Oropharynx is clear without lesions. NECK: Supple without lymphadenopathy. Traches midline. HEART: S1, S2. Regular rate and rhythm. Denying chest pain no murmur noted LUNGS: No crackles or wheezes are heard. On room air sats are 94% no cough noted no shortness of breath ABDOMEN: Soft, nontender, nondistended No peritoneal signs. No palpable organomegaly or masses. Surgical sites no redness. Evert-Macias drain in place. States urinating no difficulty no stool. Bowel tones present denying any abdominal discomfort EXTREMITIES: Normal skin color and turgor. No cyanosis, rash, ulceration, clubbing or edema. Radial pedal pulses are 2/4 bilaterally. NEUROLOGICAL: No focal deficits. Strength and sensation are grossly intact. - Labs CBC & Chem 7: 09/13/16 09:37 09/13/16 09:36 Labs: Abnormal Lab Results - Last 24 Hours (Table) 09/13/16 Range/Units 09:36 BUN <2 L (7-17) mg/dL Glucose 111 H (74-99) mg/dL Calcium 8.0 L (8.4-10.2) mg/dL Phosphorus 1.8 L (2.5-4.5) mg/dL Assessment and Plan Plan: Impression 1. Morbid obesity 2. Status post September 11 laparoscopic lysis of adhesions Laparoscopic Mariya-en -Y gastric bypass, 75 cm, 25 mm Tez. Upper endoscopy retrieval foreign body from gastric pouch. Laparoscopic paraesophageal diaphragmatic hiatal hernia, midline, 4 cm, repair with [place] Biopatch a 8 x 8 cm. Intraoperative esophagogastrojejunoscopy. Placement of round of 19 drain anterior to the anastomosis via left upper quadrant. Placement of [place] drain left upper quadrant incision. 3. Obstructive sleep apnea 4. 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 History of vertigo 6. Esophageal reflux disease #7 electrolyte abnormality hypo-magnesium hypophosphorous Plan Continue postop surgical care Increase activity to the level of tolerance Encourage the use of the incentive spirometer Bariatric clear liquid diet Pain control DVT and GI prophylaxis Electrolytes are being replaced and corrected Anticipate discharge soon The above dictated assessment and findings were discussed with dr Workman. Impression and the plan of care have been dictated as directed. Opal Carroll nurse practitioner acting as a scribe for Dr. Workman
[2016-09-13 14:47] VITALS: BP 113/75; TEMP 97.7
--- NOTE | 2016-09-13 15:55 | P.PN ---
Progress Note - Text Please see quality lab technician note. Dressings was changed at bedside. She verbalized understanding of her discharge instructions.
[2016-09-13 16:35] VITALS: PULSE 78
--- NOTE | 2016-09-13 20:59 | P.DS ---
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 Morbid obesity due to excess calories. 2. Body mass index reduced from 39.7 down to 31.6 3. History of complications from adjustable gastric band. 4. Gastroesophageal reflux disease. 5. Hypertension. 6. Obstructive sleep apnea. 7. Left knee osteoarthritis. 8. Bilateral osteoarthritis. 9. Gout. 10. 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 11. Dietary surveillance and counseling. 12. Diaphragmatic hiatal hernia. 13. Vertigo. Pertinent Studies: UGI shows no leak or obstruction Procedures: 1. Laparoscopic lysis of adhesions over 1-1/2 hour. 2. Laparoscopic Mariya-en-Y gastric bypass, 75 cm, 25 mm Tez. 3. Upper endoscopy retrieval foreign body from gastric pouch. 4. Laparoscopic paraesophageal diaphragmatic hiatal hernia, midline, 4 cm, repair with [place] Biopatch a 8 x 8 cm. 5. Intraoperative esophagogastrojejunoscopy. 6. Placement of round of 19 drain anterior to the anastomosis via left upper quadrant. 7. Placement of [place] drain left upper quadrant incision. Patient Condition at Discharge: Stable Plan - Discharge Summary New Discharge Prescriptions: HYDROcodone/APAP 7.5-325MG [[place] 7.5-325] 1 tab PO Q6HR PRN #60 tab PRN Reason: Pain Omeprazole 40 mg PO DAILY #90 capsule.dr Discharge Medication List Estradiol [Estrace] 2 mg PO DAILY 07/05/16 [History] Lisdexamfetamine Dimesylate [Vyvanse] 40 mg PO DAILY 07/05/16 [History] Fluticasone Nasal [place] [Flonase Nasal [place]] 1 spr EA NOSTRIL DAILY 08/09/16 [ History] Meclizine [Antivert] 12.5 mg PO Q6H PRN 09/05/16 [History] SUMAtriptan SUCCINATE [Imitrex] 50 mg PO DAILY PRN 09/05/16 [History] HYDROcodone/APAP 7.5-325MG [[place] 7.5-325] 1 tab PO Q6HR PRN #60 tab 09/13/16 [ Rx] Omeprazole 40 mg PO DAILY #90 capsule. 09/13/16 [Rx] Follow up Appointment(s)/Referral(s): Kayleigh Workman MD [STAFF PHYSICIAN] - 09/15/16 10:00 am (Bariatric Center) Patient Instructions/Handouts: *Surgery [facility] - Scopalamine Patch Instructions, Evert-Macias Drain Care (GEN), Nutrition after Bariatric Surgery (DC), Mariya-en -Y Gastric Bypass (GEN) Activity/Diet/Wound Care/Special Instructions: No lifting over 4 pounds in 4 weeks. Follow-up at the bariatric center. May sponge bath. Do not shower until cleared by surgeon. Dressings to be discontinued by surgeon in the office. Please crush medications if pill size is larger than an M&M or tic tac. Discharge Disposition: HOME SELF-CARE
--- NOTE | 2016-09-13 21:01 | P.OP ---
Date of Procedure: 09/11/16 Description of Procedure: SURGEON: EDITH HOWE MD STATE MANAGER: ADRIANA ESTES. PREOPERATIVE DIAGNOSES: 1. Morbid obesity due to excess calories. 2. Body mass index reduced from 39.7 down to 33.8. 3. History of complications from adjustable gastric band. 4. Gastroesophageal reflux disease. 5. Hypertension. 6. Obstructive sleep apnea. 7. Left knee osteoarthritis. 8. Bilateral hip osteoarthritis. 9. Gout. 10. 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 11. Dietary surveillance and counseling. 12. Diaphragmatic hiatal hernia. 13. Vertigo. POSTOPERATIVE DIAGNOSES: 1. Morbid obesity due to excess calories. 2. Body mass index reduced from 39.7 down to 33.8. 3. History of complications from adjustable gastric band. 4. Gastroesophageal reflux disease. 5. Hypertension. 6. Obstructive sleep apnea. 7. Left knee osteoarthritis. 8. Bilateral hip osteoarthritis. 9. Gout. 10. 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 11. Dietary surveillance and counseling. 12. Diaphragmatic hiatal hernia. 13. Vertigo. 14. Severe lower abdominal/pelvic adhesions greater omentum to abdominal wall. 15. Perigastric adhesions of omentum to stomach and liver. OPERATION: 1. Laparoscopic lysis of adhesions over 1-1/2 hour. 2. Laparoscopic Mateo-en-Y gastric bypass, antegastric antecolic 75 cm Mateo limb , 25 mm Orvil. 3. Upper endoscopy with retrieval of foreign body from gastric pouch and placement of Orvil. 4. Laparoscopic paraesophageal diaphragmatic hiatal hernia, midline, 4 cm, repair with [place] Biopatch A 8 x 8 cm. 5. Intraoperative esophagogastrojejunoscopy. 6. Placement of round of 19 drain anterior to the anastomosis via left upper quadrant. 7. Placement of [place] drain left upper quadrant incision. ANESTHESIA: 85 mL Exparel with sensorcaine with epinephrine and normal saline mixture. ESTIMATED BLOOD LOSS: 50 mL SPECIMENS REMOVED: None. COMPLICATIONS: None. INDICATIONS: Lacey Fuentes is a 46-year-old female who had an adjustable gastric band removal on 07/12/2016. She reports having the adjustable gastric band for several years. Her highest weight was 268 pounds for a 5 foot 9 frame. She comes in weighing 220 pounds. She has been able to maintain a 39 pound weight loss with her adjustable gastric band; however, she had severe intolerance including gastric prolapse and complications from her band. Now she comes in for a correction of her hiatal hernia. At her height of 5 foot 9, her ideal body weight is 168 pounds. Her previous body mass index was 39.7. Today she comes in with body mass index of 33.8. Separately, she also reports severe lower back pain including history of gout. She has bilateral hip pain including the left knee osteoarthritis. She has hypertension including history of obstructive sleep apnea. She presents to undergo a Mateo-en-Y gastric bypass. All surgical options for morbid obesity had been described using the [place] bariatric surgery collaborative comorbidity resolution including complication risk score. The patient had elected for a gastric bypass with possible sleeve gastrectomy. A second-generation bariatric consent form was described in detail including but not limited to the possibility of protein malnutrition, infecion, leaks, gastrojejunal stricture, venous thrombosis for which she demonstrated understanding. As she is revisional surgery, she presents with higher than stated risks including for leaks and stricture. Benefits and risks of the procedure were described at length. Informed consent was obtained. DESCRIPTION: The patient was brought into the operating room theater. She was placed on a split leg table. Preoperatively she had received Lovenox subcutaneously for DVT prophylaxis. Additionally she had undergone Peridex oral solution as an oral decontaminant. After general induction, the abdomen was prepped and draped in standard sterile fashion. A Dickerson catheter was placed. Ioban draping was placed along the abdomen. A 0 10 mm laparoscopic trocar entry was performed along the epigastrium approximately 15 cm distal to the xiphoid process. Diagnostic laparoscopy demonstrated no injury to bowel, viscera, or mesentery. The liver surface was unremarkable for fatty liver disease. No injury had occurred to the small bowel or viscera. Chronic adhesions about the gallbladder was identified consistent with chronic cholecystitis. Moderate greater omentum to lower abdominal wall adhesions were found including along the epigastrium. At the left upper quadrant 2- 12 mm trocars were placed 1 along the left midclavicular line and another along the left anterior axillary line. In a mirror-pichardo fashion, 2 - 12 mm trocars were also placed along the right upper abdomen in a mirror-pichardo fashion. To address her adhesions, another 12 mm port was placed at the right lower quadrant under direct visualization. Using combination of Harmonic scalpel including blunt dissection with fenestrated graspers, the greater omentum was dissected free from the abdominal wall. Severe pelvic adhesions were identified and complete adhesionolysis of the greater omentum into the deep pelvis was performed in Trendelenberg position. No enterotomies occured. Over 45 minutes of lysis of adhesions were performed to address her epigastric and lower abdominal adhesions. The patient was repositioned to supine position with the bed levelled. The transverse mesocolon, including the greater omentum, was reflected over the stomach. The ligament of Treitz was identified and measured 60 cm antegrade. The jejunum was divided at the 60 cm point after using metered graspers for measurement. The biliopancreatic limb was held in place by the multimedia assistant. The Mateo limb was then measured from 100 to 150 cm with moderated tension identified along the proposed gastrojejunal anastomosis. Hence, the mateo limb was measured and adjusted to 75 cm which was without tension. The Mateo limb was marked using a Trudi drain and 2-0 silk on an Endo Stitch along its proximal staple edge. At 75 cm along the anti-mesenteric border of the Mateo limb, a jejunojejunostomy was proposed whereby enterotomies were created along the biliopancreatic limb including the Mateo limb using a suction Bovie cautery. The enterotomies were widened using a [place]. A bidirectional fire was performed whereby from the right side a 45 mm segovia load was fired. From the left side a separate 45 mm firing was performed, creating a 90 mm jejunojejunostomy. The defect was closed using a 60 mm segovia load. The jejunojejunostomy was hemostatic after using electro-Bovie cautery along the staple edge. Attention was now brought to the creation of the gastrojejunostomy. Placement of a medium size Estephania liver retractor was used to elevate the left lobe of the liver for greater visualization of the upper abdomen, particularly the superior pole of the stomach. The patient was then placed in reverse Trendelenburg. The Estephania liver retractor was held in place using an iron resident intern. Peritoneal adhesions from her previous adjustable gastric band was found as the superior pole of the anterior stomach was adherent to the undersurface of the left liver. A Sonicision was used to free the adhesions and expose the previous lesser curvature including the gastrohepatic ligament of the stomach which had been obliterated from her previous surgery. The anti-tension stitch of Surgidac from her gastric plication of the adjustable gastric band was identified and divided. An additional 45 minutes of extensive lysis of adhesions was performed using a combination of sharp including blunt dissection without gastrotomy or enterotomy. Along the lesser curvature of the stomach between the second and third veins, dissection was made along the retrogastric space to allow first firing of the Covidien Tri-Staple purple load. Once adequately mobilized, an initial firing using a 60 mm purple load was performed perpendicular to the lesser curvature of the stomach. To completely divide the pouch from the remnant stomach, three 60 mm purple loads were fired towards the angle of His--two being tissue reinforced along the superior edge of the gastric remnant. A total of 4 staplers including 4 - 60 mm Covidien tri-staplers purple loads were used to create the gastric pouch. Hemostasis was checked with electro-Bovie cautery along the left lateral edge of the gastric remnant stomach. The spleen was identified and unharmed during this portion of the procedure. The patient was then prepared for placement of an Orvil. The patient was Mallampati 2. A 25-mm Orvil was selected to be placed by the nurse rubber tester. Despite attempts to position the Orvil in the gastric pouch, the Orvil coiled along her esophagus. An upper scope was proposed for retrieval of foreign body including direct placement of the Orvil. I went to the head of the bed to perform an intraoperative esophagogastroscopy. A pediatric Olympus gastroscope was placed along the posterior oropharynx. The scope was passed to the pouch and given the angulation into the pouch, an endoscopic placement of the Orvil was performed. A snare device was placed through the scope and used to grasp the tube tip of the 25 mm Orvil. The Orvil tip was navigated to the distal portion of the gastric pouch and placed anterior to the staple line. I then scrubbed back into the case and a gastrotomy was placed along the tip of the tubing. The Orvil tubing was navigated through the left inferior lateral port at the midclavicular line. The snare was cut using an endoscopic scissor. I then went back to the head of the bed for retrieval of the scope and snare. The sutures of the Orvil tubing were identified and divided. The tubing was from the 25 mm anvil. Using aseptic technique all instruments including port sites were exchanged. Attention was now brought to mobilization of the phrenoesophageal ligament for her paraesophageal diaphragmatic hiatal hernia repair. The patient was repositioned in reverse Trendelenburg. Starting from the left pricila the phrenoesophageal ligament anteriorly was dissected free. Care was taken to avoid any injury to the bilateral vagi nerves during this portion of dissection. The distal esophagus was mobilized from an anterior to posterior approach such that approximately 3 cm intra-abdominal length of the esophagus was obtained. Once the left and right pricila was identified, and the distal esophagus was free from its attachments, the final length of the hiatal hernia was consistent with 4 cm. The hiatus was repaired primarily using a single stitch of Surgidac followed by a [id number]-lm-ksonn suture using 2-0 Surgidac on a madvertise endo stitch. The final closure was consistent with approximately a 56 Lao bougie as a fenestrated grasper easily passed between the abdominal cavity into the thoracic cavity. Next, to reinforce the repair, a [place] Biopatch A, 8 x 8 cm mesh was cut to size in a keyhole fashion. The [place] Biopatch A was placed along the retroesophageal plane and tacked using 2-0 Surgidac onto the left pricila of the diaphragm. The mesh had laid well in opposition to the left and right pricila. As the Orvil had been placed, the blind jejunal limb was brought proximally into the upper abdomen. The transverse mesocolon was cleaved using a Harmonic scalpel. No tension or torsion was found upon the Mateo limb. The blind jejunal limb was opened using a cordless Harmonic scalpel. The 25-mm EEA stapler was brought through the left anterior lateral port site. Please note that the trocars from the Orvil tubing, including the port, were removed to minimize contamination from the oral elham. The EEA stapler was brought through the open jejunal limb and its needle was deployed at the antimesenteric border where the anvil were mated for approximately 1 minute upon firing. The stapler was removed after irrigating the shaft of the instrument with 250 mL warm normal saline. Donuts were found to be intact. The open jejunal limb defect was closed using a 60 mm segovia load. Hemostasis was checked with Sonicision along the blind jejunal limb mesentery. Care was taken to avoid any long blind limb to avoid candycane syndrome. No reinforcement sutures were needed along the gastrojejunal anastomosis. Closure of the mesenteric defects were performed, initially of the Chung defect using 2-0 silk on an Endo Stitch and a Lapra-Ty and the jejunojejunostomy mesenteric defect. I then went to the head of the bed to perform the esophagogastrojejunoscopy and a leak test. An Olympus gastroscope was passed along the posterior oropharynx which was unremarkable for any injury to the vocal cords. The scope was passed down to the proximal portion of the pouch, whereby no active bleeding was encountered. Excellent visualization of the gastrojejunostomy anastomosis, including the Mateo limb was encountered with endoscopic image obtained. The anastomosis was found to be patent. The gastrointestinal tract was desufflated. No evidence of intraoperative leak was encountered as the gastric pouch and anastomosis were submerged under normal saline solution. I then went back to the bedside of the patient, whereby with coordinated effort of the multimedia assistant, irrigation was aspirated from the upper abdominal cavity. Tisseel was placed circumferentially over the anastomosis of the gastrojejunostomy. A round #19 [place] drain was placed via the most left lateral port and placed anterior to the gastrojejunal anastomosis. The drain was tacked to the skin using 2-0 nylon. The fascial defect corresponding to the EEA stapler device was closed using a Marlon [place] and 0 Vicryl with 2 separate sutures. All instruments and pneumoperitoneum were evacuated from the abdominal cavity. The port correlating with the EEA stapler device was copiously irrigated with 3 L of warm normal saline solution and 50 mL of hydrogen peroxide. A quarter inch Trudi drain was placed along the EEA stapler site and tacked using 2-0 nylon. The rest of incisions were reapproximated using 3-0 Vicryl for deep subcutaneous tissue and dermis followed by 4-0 Monocryl in a running subcuticular fashion. For local anesthetic, 85 mL of Exparel including Sensorcaine with epinephrine and normal saline mixture was infiltrated along the skin for postop analgesia. Dermabond was applied to the skin. OptiFoam dressing was placed along the EEA stapler site. At the end of the procedure, needle, sponge and instrument count had been verified correct by the surgical endoscopist. She had tolerated the procedure well and was taken to the postanesthesia unit in stable condition. Total skin to skin time was 227 minutes. Intraoperative films were reviewed with the patient's family who were very pleased with the level of care. FINDINGS: 1. Negative intraoperative esophagogastrojejunoscopy leak test. 2. No fatty liver disease with hepatomegaly. 3. All defects including jejunojejunostomy Chung defects were closed. 4. Total of 4 staple loads including 2 - 60 mm tissue reinforced and 2 - 60 mm Covidien tri-stapler purple loads used to create the gastric pouch. 5. Gastrojejunostomy created using 25 mm Orvil. 6. Jejunojejunostomy created with 90 mm dru-lumen 7. Severe adhesions of the stomach to the liver and perigastric adhesions adding additional 45 minutes to her case. 8. Severe pelvic adhesions of greater omentum to abdominal wall, adding 45 minutes to her case for lysis of adhesions. 9. Mateo limb of 75 cm performed to minimize mesenteric tension. 10. Additional total time for lysis of adhesions over 1-1/2 hours to address intra-abdominal adhesions including perigastric adhesions. 11. Chronic adhesions about the gallbladder consistent with chronic cholecystitis.
== END 2016-09-13 18:27 | disposition home or self-care (01) | DRG 621 ==
LOC: 2ORWHC 06:32 → 3SUR 12:02
PROVIDERS: ADMIT Surgery Plastic and Reconstructive Surgery; ATTEND Surgery Plastic and Reconstructive Surgery
PROC: 0BUS4JZ (ICD-10-PCS; 2016-09-11)
PROC: 0BUR4JZ (ICD-10-PCS; 2016-09-11)
PROC: 0DNS4ZZ (ICD-10-PCS; 2016-09-11)
PROC: 0DN64ZZ Release Stomach, Percutaneous Endoscopic Approach (ICD-10-PCS; 2016-09-11)
PROC: 0DJ08ZZ Inspection of Upper Intestinal Tract, Via Natural or Artificial Opening Endoscopic (ICD-10-PCS; 2016-09-11)
PROC: 0FN44ZZ Release Gallbladder, Percutaneous Endoscopic Approach (ICD-10-PCS; 2016-09-11)
PROC: 0D164ZA Bypass Stomach to Jejunum, Percutaneous Endoscopic Approach (ICD-10-PCS; principal; 2016-09-11 07:30)
DX: E66.01 Morbid (severe) obesity due to excess calories (principal); E83.42 Hypomagnesemia; R13.10 Dysphagia, unspecified; E83.39 Other disorders of phosphorus metabolism; K81.1 Chronic cholecystitis; I10 Essential (primary) hypertension; K44.9 Diaphragmatic hernia without obstruction or gangrene; K21.9 Gastro-esophageal reflux disease without esophagitis; K66.0 Peritoneal adhesions (postprocedural) (postinfection); G47.33 Obstructive sleep apnea (adult) (pediatric); F90.9 Attention-deficit hyperactivity disorder, unspecified type; R42 Dizziness and giddiness; G43.909 Migraine, unspecified, not intractable, without status migrainosus; R06.83 Snoring; M17.0 Bilateral primary osteoarthritis of knee; K82.8 Other specified diseases of gallbladder; M51.36 Other intervertebral disc degeneration, lumbar region; F32.9 Major depressive disorder, single episode, unspecified; M47.816 Spondylosis without myelopathy or radiculopathy, lumbar region; M16.0 Bilateral primary osteoarthritis of hip; M10.9 Gout, unspecified; Z68.33 Body mass index [BMI] 33.0-33.9, adult; Z88.6 Allergy status to analgesic agent; Z87.19 Personal history of other diseases of the digestive system; Z87.891 Personal history of nicotine dependence; Z79.890 Hormone replacement therapy; Z79.51 Long term (current) use of inhaled steroids; Z79.899 Other long term (current) drug therapy; Z79.891 Long term (current) use of opiate analgesic; Z90.710 Acquired absence of both cervix and uterus; Z71.3 Dietary counseling and surveillance; Z98.84 Bariatric surgery status; Z82.49 Family history of ischemic heart disease and other diseases of the circulatory system; Z98.51 Tubal ligation status
CPT/HCPCS: 74240; 80048; 80051; 80053; 81025; 82310; 82565; 83735; 84100; 84520; 85025; 94640; 94760

== ENCOUNTER → 2016-09-15 | Outpatient (CLI) | payer BC ==
[2016-09-15 16:51] VITALS: BP 106/59; PULSE 92; RESP 15; TEMP 98.7; BMI 33.3
--- NOTE | 2016-10-15 17:01 | P.PN ---
Progress Note - Text DATE OF SERVICE: 09/15/2016 CHIEF COMPLAINT: Follow-up gastric bypass. HISTORY OF PRESENT ILLNESS: Lacey Fuentes is a 46-year-old female who is status post Mariya-en-Y gastric bypass on 09/11/2016. She is now postoperative day 4. Her history is significant for a previous adjustable gastric band for which she had complications and hence her band was discontinued and removed on 07/12/2016. She reports doing fairly well. No reports of fevers or chills. Her reflux is completely resolved. She still pending a bowel movement. Separately, she has been drinking colored beverages, whereby her RICHAR color has not changed from serosanguinou. At her height of 5 feet 9 inches, her ideal body weight is 168 pounds. Her highest weight was 268 pounds. Today she comes in weighing 226 pounds. Her lifetime weight loss is 42 pounds. Percent weight loss is 42%. Since her last evaluation barely 3 to 4 weeks ago, she has lost another 3 pounds. Body mass index is reduced from 39.7 down to 33.4. PHYSICAL EXAM: VITAL SIGNS: 98.7, 92, 15, 106/59, 5 feet 9 inches, 226 pounds. Body mass is 33.4. ABDOMEN: Soft, nondistended. No signs of infection or cellulitis. [place] drain was discontinued. RICHAR drain was serosanguineous, also removed. MUSCULOSKELETAL: No clubbing, cyanosis, or edema. GENERAL: Well-developed, pleasant female in no acute distress. HEENT: No scleral icterus. Extraocular movements grossly intact. Moist mucosa. NECK: Supple without lymphadenopathy. CHEST: Nonlabored respirations. Equal bilateral excursions. CARDIOVASCULAR: Regular rate and rhythm. NEURO: No focal or lateralizing signs. Grossly within normal limits. PSYCH: Appropriate affect. Alert and oriented to person, place, and time. ASSESSMENT: 1. Morbid obesity due to excess calories. 2. Body mass index decreased from 39.7 down to 33.4. 3. History of complications from adjustable gastric band. 4. Status post Mariya-en-Y gastric bypass. 5. Gastroesophageal reflux disease, resolved. PLAN: 1. As she is starting her protein shake diet, I recommended followup in approximately one week. 2. I have asked her to call back sooner should she have increased abdominal pain, fevers, chills, nausea or vomiting.
== END | disposition home or self-care (01) ==
LOC: BARWHC3 10:00
PROVIDERS: ATTEND Surgery Plastic and Reconstructive Surgery
DX: Z48.815 Encounter for surgical aftercare following surgery on the digestive system (principal); E66.01 Morbid (severe) obesity due to excess calories; Z68.33 Body mass index [BMI] 33.0-33.9, adult; Z98.84 Bariatric surgery status
CPT/HCPCS: 99211

== ENCOUNTER → 2016-09-20 | Outpatient (CLI) | payer BC ==
[2016-09-20 08:12] VITALS: BP 116/71; PULSE 113; RESP 16; TEMP 98.4; BMI 32.4
--- NOTE | 2016-10-15 16:29 | P.PN ---
Progress Note - Text DATE OF SERVICE: 09/20/2016 CHIEF COMPLAINT: Followup, gastric bypass. HISTORY OF PRESENT ILLNESS: Lacey Fuentes is a 46-year-old female who is status post conversion from an adjustable gastric band to a Mariya-en-Y gastric bypass on 09/11/2016. Her previous band was removed on 07/12/2016. She reports no troubles with nausea, vomiting, fevers or chills. She is tolerating her protein diet. She does report pre-existing vertigo which had been present prior to her weight loss surgery. Separately no reports of abdominal pain. No reports of drainage along her incisions. At her height of 5 feet 9 inches, her ideal body weight is 168 pounds. Her highest weight is 268 pounds. Today she comes in weighing 219 pounds. She has lost a lifetime of 49 pound. Since her last visit barely a month ago, she has already lost 10 pounds. Percent excess weight loss is 49%. Body mass index has been reduced from 39.7 to 32.4. PHYSICAL EXAM: VITAL SIGNS: 98.4, 113, 16, 116/71, 5 feet 9 inches, 219 pounds. Body mass index 32.4. ABDOMEN: No palpable incisional hernias. No signs of infection. CARDIOVASCULAR: Tachycardic. GENERAL: Well-developed, pleasant female in no acute distress. HEENT: No scleral icterus. Extraocular movements grossly intact. Moist mucosa. NECK: Supple without lymphadenopathy. CHEST: Nonlabored respirations. Equal bilateral excursions. MUSCULOSKELETAL: No clubbing, cyanosis, or edema. Cranial nerves 2 through 12 grossly within normal limits. NEURO: No focal or lateralizing signs. Grossly within normal limits. PSYCH: Appropriate affect. Alert and oriented to person, place, and time. ASSESSMENT: 1. Status post Mariya-en-Y gastric bypass. 2. History of complications from adjustable gastric band. 3. Morbid obesity, improved. 4. Obesity; body mass index 32.4. 5. Pre-existing vertigo. 6. Tachycardia. PLAN: 1. I did discuss with her signs and symptoms of tachycardia, including leak; however, clinically she has been doing extremely well and asymptomatic. I have asked her to recheck her heart rate, especially in a calm state. 2. Recommend followup in approximately 1 to 2 weeks. 3. I have asked her to follow up sooner, should she have any other further concerns in the interim.
== END | disposition home or self-care (01) ==
LOC: BARWHC3 07:55
PROVIDERS: ATTEND Surgery Plastic and Reconstructive Surgery
DX: Z48.815 Encounter for surgical aftercare following surgery on the digestive system (principal); Z98.84 Bariatric surgery status; E66.9 Obesity, unspecified; Z68.32 Body mass index [BMI] 32.0-32.9, adult; R42 Dizziness and giddiness; R00.0 Tachycardia, unspecified; Z71.3 Dietary counseling and surveillance
CPT/HCPCS: 99211

== ENCOUNTER → 2016-10-02 | Outpatient (CLI) | payer BC ==
[2016-10-02 11:30] VITALS: BP 141/59; PULSE 88; RESP 16; TEMP 98.7
[2016-10-02] MEDS: SODIUM CHLORIDE 0.9% 2,000 ML IV ONE ×2 (11:30→12:29)
[2016-10-02 11:52] LABS: Basophils # (A) 0.1 k/uL (0-0.2); Basophils % (A) 1 %; CH 28.8; CHCM 32.9; Eosinophils # (A) 0.6 k/uL (0-0.7); Eosinophils % (A) 10 %; HDW 2.77; HGB 13.4 gm/dL (11.4-16.0); Luc # (Auto) 0.19; Luc % (Auto) 3; Lymphocytes # (A) 1.3 k/uL (1.0-4.8); Lymphocytes % (A) 22 %; MCH 28.8 pg (25.0-35.0); MCHC 32.8 g/dL (31.0-37.0); MCV 87.9 fL (80.0-100.0); Mean Platelet Volume 8.9; Monocytes # (A) 0.3 k/uL (0-1.0); Monocytes % (A) 4 %; Neutrophils # (A) 3.5 k/uL (1.3-7.7); Neutrophils % (A) 59 %; RBC 4.66 m/uL (3.80-5.40); RDW 13.3 % (11.5-15.5); WBC (Perox) 6.06
[2016-10-02 12:10] LABS: ALT 30 U/L (9-52); AST 23 U/L (14-36); Alkaline Phosphatase 66 U/L (38-126); Anion Gap 16 mmol/L; Blood Urea Nitrogen 9 mg/dL (7-17); Calcium 9.8 mg/dL (8.4-10.2); Carbon Dioxide 25 mmol/L (22-30); Chloride 100 mmol/L (98-107); Glucose 94 mg/dL (74-99); Iron 51 ug/dL (37-170); Non-African American GFR(MDRD) >60 (>60 ml/min/1.73 sqM); Potassium 4.5 mmol/L (3.5-5.1); Sodium 141 mmol/L (137-145); Total Bilirubin 0.5 mg/dL (0.2-1.3); Total Protein 7.7 g/dL (6.3-8.2)
[2016-10-02 12:12] LABS: INR 1.1 (<1.1); Partial Thromboplastin Time 23.2 sec (22.0-30.0); Prothrombin Time 11.3 sec (9.0-12.0)
[2016-10-02 12:20] LABS: % Iron Saturation 15.6 % (20-50); Prealbumin 22 mg/dL (18-36); Total Iron Binding Capacity 327 ug/dL (265-497)
[2016-10-06 18:14] LABS: Selenium 162 mcg/L (63-160)
== END | disposition home or self-care (01) ==
LOC: PROCWHC3 11:01
PROVIDERS: ATTEND Surgery Plastic and Reconstructive Surgery
DX: E66.01 Morbid (severe) obesity due to excess calories (principal); E86.0 Dehydration; E21.1 Secondary hyperparathyroidism, not elsewhere classified; K90.89 Other intestinal malabsorption; E55.9 Vitamin D deficiency, unspecified; K74.1 Hepatic sclerosis; N19 Unspecified kidney failure; K90.9 Intestinal malabsorption, unspecified
CPT/HCPCS: 36415; 80053; 82306; 82525; 82728; 82746; 83036; 83540; 83550; 83970; 84134; 84255; 84443; 84630; 85025; 85610; 85730; 96360; 96361

== ENCOUNTER → 2016-10-02 | Outpatient (CLI) | payer BC ==
[2016-10-02 12:54] VITALS: BP 141/59; PULSE 88; TEMP 98.6; BMI 30.7
--- NOTE | 2016-10-02 14:43 | CT ---
EXAMINATION TYPE: CT abdomen pelvis w con DATE OF EXAM: 10/02/2016 2:34 PM COMPARISON: NONE HISTORY: Morbid obesity, diverticulitis CT DLP: 1475.8 mGycm CONTRAST: CT scan of the abdomen and pelvis is performed with Oral Contrast and with IV Contrast, patient injec jonah with 100 ml mL of Omnipaque 300. FINDINGS: LUNG BASES-: No visible nodule. No infiltrate. LIVER/GB: No calcified gallstones. No space occupying hepatic lesion. Biliary tree is of normal ca liber. PANCREAS: No inflammation. No distinct mass. SPLEEN: No splenic enlargement. No lesion seen. ADRENALS: No nodule. No thickening. KIDNEYS/BLADDER: No hydronephrosis. No nephrolithiasis. No disctinct renal mass. Urinary bladder g rossly unremarkable. BOWEL: Normal appendix. Normal bowel caliber. No inflammation. Noted are changes of Mariya-en-Y gastr ic bypass procedure. There is no evidence for leak or obstruction. Contrast is seen within small shakir l. One or 2 small foci of the free air within the right lower quadrant as well as a focus of air with in the right rectus abdominis likely postoperative in nature. No inflammatory process is identified. GENITAL ORGANS: Hysterectomy changes identified. LYMPH NODES: No greater than 1cm abdominal or pelvic lymph nodes are appreciated. AORTA: No significant abnormality. OSSEOUS STRUCTURES: No significant abnormality is seen. OTHER: No significant additional abnormality is seen. IMPRESSION: 1. No acute inflammatory process identified to account for the patient's symptoms. 2. Postoperative changes as discussed.
--- NOTE | 2016-11-01 01:36 | P.PN ---
Progress Note - Text DATE OF SERVICE: 10/02/2016 CHIEF COMPLAINT: Followup gastric bypass. HISTORY OF PRESENT ILLNESS: Lacey Fuentes is a 46-year-old female, status post gastric bypass revision on 09/11/2016. She is barely 3 weeks out. She reports left upper and left lower quadrant abdominal pain. She also reports having a headache. At her height of 5 foot 9 inches, her ideal body weight is 168 pounds. Her highest weight was 268. Today she comes in weighing 207 pounds. Total weight loss is 61 pounds. Percent excess weight loss 61%. She has lost 12 pounds in approximately one week. Body mass index reduced from 39.7 down to 30.7. Total BMI point reduction is 9 points. PHYSICAL EXAM: VITAL SIGNS: 98.6, 88, 141/59; 5 foot 9, 207 pounds. Body mass index 30.7. ABDOMEN: Soft, all incisions completely granulated without signs of cellulitis or infection. Mild tenderness in the left upper quadrant and left lower quadrant. SKIN: Poor skin turgor. CARDIOVASCULAR: Tachycardic. GENERAL: Well-developed, pleasant female in no acute distress. HEENT: No scleral icterus. Extraocular movements grossly intact. Moist mucosa. NECK: Supple without lymphadenopathy. CHEST: Nonlabored respirations. Equal bilateral excursions. MUSCULOSKELETAL: No clubbing, cyanosis, or edema. Cranial nerves 2 through 12 grossly within normal limits. NEURO: No focal or lateralizing signs. Grossly within normal limits. PSYCH: Appropriate affect. Alert and oriented to person, place, and time. LABS: Hemoglobin normal at 13.4, white count normal at 6, iron normal at 51%, iron saturation low at 15.6. Vitamin D low at 23.6. Copper elevated, selenium elevated and zinc low at 48. ASSESSMENT: 1. Status post Mariya-en-Y gastric bypass. 2. History of morbid obesity, resolved. 3. Body mass index reduced from 39.7 down to 30.7. 4. Left upper quadrant pain. 5. Left lower quadrant abdominal pain. 6. Vitamin D deficiency. 7. Elevated Selenium. 8. Zinc deficiency. PLAN: 1. With her recent surgery, she is at high risk for developing intra-abdominal leak. Recommend CT of the abdomen and pelvis. 2. With her left lower quadrant pain, diverticulitis cannot be excluded. 3. She has completed bariatric metabolic panel which is within normal limits. ADDENDUM: STUDIES: CT of the abdomen and pelvis was reviewed, demonstrating no findings of a leak. Recommend IV fluid hydration.
== END | disposition home or self-care (01) ==
LOC: BARWHC3 12:13
PROVIDERS: ATTEND Surgery Plastic and Reconstructive Surgery
DX: R10.12 Left upper quadrant pain (principal); K57.32 Diverticulitis of large intestine without perforation or abscess without bleeding; R19.4 Change in bowel habit; Z71.3 Dietary counseling and surveillance; Z98.84 Bariatric surgery status
CPT/HCPCS: 74177; 99211; 97803; Q9967

== ENCOUNTER → 2016-10-25 | Outpatient (CLI) | payer BC ==
[2016-10-25 16:49] VITALS: BP 137/84; PULSE 80; TEMP 98.2
[2016-10-25 17:50] LABS: Basophils # (A) 0.1 k/uL (0-0.2); Basophils % (A) 1 %; CH 28.5; CHCM 33.2; Eosinophils # (A) 0.3 k/uL (0-0.7); Eosinophils % (A) 5 %; HDW 2.71; HGB 13.8 gm/dL (11.4-16.0); Luc % (Auto) 1; Lymphocytes # (A) 1.8 k/uL (1.0-4.8); Lymphocytes % (A) 25 %; MCH 28.9 pg (25.0-35.0); MCHC 33.5 g/dL (31.0-37.0); MCV 86.1 fL (80.0-100.0); Mean Platelet Volume 8.3; Monocytes # (A) 0.3 k/uL (0-1.0); Monocytes % (A) 4 %; Neutrophils # (A) 4.7 k/uL (1.3-7.7); Neutrophils % (A) 65 %; RBC 4.77 m/uL (3.80-5.40); RDW 13.8 % (11.5-15.5); WBC 7.3 k/uL (3.8-10.6); WBC (Perox) 7.44
[2016-10-25 17:56] LABS: INR 1.1 (<1.1); Partial Thromboplastin Time 24.5 sec (22.0-30.0); Prothrombin Time 11.2 sec (9.0-12.0)
[2016-10-25 17:58] LABS: Hemoglobin A1C 5.1 % (4.2-6.1)
[2016-10-25 18:10] LABS: ALT 28 U/L (9-52); AST 18 U/L (14-36); Alkaline Phosphatase 66 U/L (38-126); Anion Gap 12 mmol/L; Blood Urea Nitrogen 13 mg/dL (7-17); Calcium 9.7 mg/dL (8.4-10.2); Carbon Dioxide 26 mmol/L (22-30); Chloride 104 mmol/L (98-107); Cholesterol 155 mg/dL (<200); Glucose 90 mg/dL (74-99); HDL Cholesterol 70 mg/dL (40-60); Iron 45 ug/dL (37-170); Magnesium 2.1 mg/dL (1.6-2.3); Non-African American GFR(MDRD) >60 (>60 ml/min/1.73 sqM); Phosphorous 3.5 mg/dL (2.5-4.5); Potassium 4.4 mmol/L (3.5-5.1); Sodium 142 mmol/L (137-145); Total Bilirubin 0.4 mg/dL (0.2-1.3); Total Protein 7.3 g/dL (6.3-8.2); Triglycerides 83 mg/dL (<150)
[2016-10-25 18:20] LABS: % Iron Saturation 13.6 % (20-50); Prealbumin 19 mg/dL (18-36); Total Iron Binding Capacity 332 ug/dL (265-497)
[2016-10-25 19:13] LABS: Vitamin B12 794 pg/mL (239-931)
[2016-10-28 21:25] LABS: Selenium 120 mcg/L (63-160)
--- NOTE | 2016-11-27 17:53 | P.PN ---
Progress Note - Text DATE OF SERVICE: 10/25/2016 CHIEF COMPLAINT: Follow-up gastric bypass. HISTORY OF PRESENT ILLNESS: Lacey Fuentes is a 46-year-old female who is status post Mariya-en-Y gastric bypass on 09/11/2016. She is about six weeks out since her revision from a band to a Mariya-en-Y gastric bypass. She has done fairly well. For her height of 5 feet 9 inches, her ideal body weight is 168 pounds. Her highest personal weight was 268 pounds. Today she comes in weighing 203 pounds. She has maintained a 65 pounds weight loss. Percent excess weight loss is 65%. Now she is only 35 pounds overweight. Body mass index is reduced from 39.7 down to 30.1. Total BMI point reduction is 9.6. She comes in with some concerns of left shoulder pain and is worse especially after eating. Her gastroesophageal reflux disease is completely resolved. She denies any nausea and vomiting, fevers or chills. Her personal goal is to get down to 165 pounds. She reports that her dizziness is completely resolved since her surgery. This morning she reported having watery mouth with dry heaves. She is barely averaging 60 grams of protein daily. Since her original surgery, she has actually lost an additional 27 pounds. PHYSICAL EXAM: VITAL SIGNS: 98.2, 81, 137/84; 5 foot 9, 203 pounds. Body mass index 30.1. ABDOMEN: Soft. No palpable incisional hernias. No epigastric discomfort. No signs of cellulitis or infection. CARDIOVASCULAR: Regular rate, rhythm. GENERAL: Well-developed, pleasant female in no acute distress. HEENT: No scleral icterus. Extraocular movements grossly intact. Moist mucosa. NECK: Supple without lymphadenopathy. CHEST: Nonlabored respirations. Equal bilateral excursions. MUSCULOSKELETAL: No clubbing, cyanosis, or edema. Cranial nerves 2 through 12 grossly within normal limits. NEURO: No focal or lateralizing signs. Grossly within normal limits. PSYCH: Appropriate affect. Alert and oriented to person, place, and time. LABS: White count was normal at 7.3. HDL was elevated at 70. Total iron-binding capacity was normal. Percent iron saturation is low at 13.6%. Thyroid-stimulating hormone was suppressed at 0.035. ASSESSMENT: 1. Morbid obesity excess calories, now resolved. 2. Body mass index of 30.1 obesity. 3. Status post gastric bypass. 4. Elevated HDL. 5. Suppressed TSH levels of unclear etiology. PLAN: 1. Overall she is doing extremely well since her revisional surgery. Will continue to evaluate her discomfort of her shoulder. 2. Recommend multivitamins in the interim. 3. Recommend goal protein intake of over 75 grams daily. 4. Will re-evaluate her TSH levels with a thyroid panel. 5. Recommend follow-up at least in her 6 month cycle at latest for December 2016; however, sooner if needed.
== END | disposition home or self-care (01) ==
LOC: BARWHC3 15:23
PROVIDERS: ATTEND Surgery Plastic and Reconstructive Surgery
DX: Z48.815 Encounter for surgical aftercare following surgery on the digestive system (principal); M25.512 Pain in left shoulder; E66.01 Morbid (severe) obesity due to excess calories; E21.1 Secondary hyperparathyroidism, not elsewhere classified; D50.8 Other iron deficiency anemias; K90.9 Intestinal malabsorption, unspecified; E55.9 Vitamin D deficiency, unspecified; K74.1 Hepatic sclerosis; R63.3 Feeding difficulties; E78.5 Hyperlipidemia, unspecified; Z68.30 Body mass index [BMI] 30.0-30.9, adult; Z98.84 Bariatric surgery status
CPT/HCPCS: 80053; 80061; 82306; 82525; 82607; 82728; 82746; 83036; 83540; 83550; 83735; 83970; 84100; 84134; 84255; 84425; 84443; 84590; 84630; 85025; 85610; 85730; 99211

== ENCOUNTER → 2016-11-29 | Outpatient (CLI) | payer BC ==
[2016-11-29 15:47] VITALS: BMI 28.8
[2016-11-29 15:48] VITALS: BP 108/57; PULSE 80; RESP 16; TEMP 98.5
--- NOTE | 2017-01-18 12:21 | P.PN ---
Progress Note - Text DATE OF SERVICE: 11/29/2016. CHIEF COMPLAINT: Follow-up gastric bypass. HISTORY OF PRESENT ILLNESS: Lacey Fuentes is a 46-year-old female with previous history of troubles with adjustable gastric band and severe gastroesophageal reflux disease. She had gastric band prolapse where her band had been removed on 07/12/2016. She then underwent a Mariya-en-Y gastric bypass revision on September 11, 2016. Now she is less than 3 months out. She reports complete resolution of the gastroesophageal reflux disease including troubles with swallowing. Her highest personal weight for a 5 foot, 9 inches frame is 268 pounds. [place] body weight is 168 pounds. Today she comes when 194 pounds. She has successfully lost 74 pounds. Percent excess weight loss is 74%. Body mass index is reduced from 39.7 down to 28.8. Total BMI point reduction is 10.9. She is only 26 pounds overweight. She lost another 9 pounds since follow-up less than one month ago. She also reports troubles with her skin where she has developed panniculitis as well. PHYSICAL EXAM: VITAL SIGNS: 98.5, 80, 16, 108/57; 5 feet 9 inches, 194 pounds. Body mass index 28.8. ABDOMEN: All wounds completely granulated. No large palpable incisional hernias noted. Minimal tenderness along the right quadrant. CARDIOVASCULAR: Regular rate, rhythm. GENERAL: Well-developed, pleasant female in no acute distress. HEENT: No scleral icterus. Extraocular movements grossly intact. Moist mucosa. NECK: Supple without lymphadenopathy. CHEST: Nonlabored respirations. Equal bilateral excursions. MUSCULOSKELETAL: No clubbing, cyanosis, or edema. Cranial nerves 2 through 12 grossly within normal limits. NEURO: No focal or lateralizing signs. Grossly within normal limits. PSYCH: Appropriate affect. Alert and oriented to person, place, and time. ASSESSMENT: 1. Morbid obesity due to excess calories. 2. Body mass index reduced from 39.7 down to 28.8. 3. Status post Mariya-en-Y gastric bypass. 4. Personal history gastroesophageal reflux disease, now resolved. PLAN: 1. She is now 3 months out and would recommend bariatric metabolic panel. 2. She does report intermittent troubles with right upper quadrant abdominal pain, which may be other features of gallstones. We will closely monitor in the interim. 3. Overall she is doing extremely well since her revision to her Mariya-En-Y gastric bypass. ADDENDUM: Previous bariatric metabolic panel was reviewed, demonstrating hemoglobin normal at 13.8. Percent iron saturation low is 13.6. HDL was elevated at 70. Thyroid-stimulating hormone suppressed at 0.035. We will continue to closely monitor thyroid hormone which may need to be adjusted for the future.
== END | disposition home or self-care (01) ==
LOC: BARWHC3 15:19
PROVIDERS: ATTEND Surgery Plastic and Reconstructive Surgery
DX: E66.01 Morbid (severe) obesity due to excess calories (principal); Z68.28 Body mass index [BMI] 28.0-28.9, adult
CPT/HCPCS: 97803; 99211

== ENCOUNTER → 2017-01-03 | Outpatient (CLI) | payer BC ==
[2017-01-03 17:15] VITALS: BP 101/71; PULSE 61; RESP 16; TEMP 98.6; BMI 28.2
--- NOTE | 2017-01-23 22:17 | P.PN ---
Progress Note - Text DATE OF SERVICE: 01/03/2017. CHIEF COMPLAINT: Follow-up gastric bypass. HISTORY OF PRESENT ILLNESS: Lacey Fuentes is a 46-year-old female with removal of gastric band removed on 07/12/2016 and Mariya-en-Y gastric bypass revision on September 11, 2016. She comes in with persistent right upper quadrant abdominal pain especially exacerbated by fatty foods. Her reflux disease is completely resolved. Her highest personal weight for a 5 foot, 9 inches frame is 268 pounds. [place] body weight is 168 pounds. Today she comes when 191 pounds. She has lost 77 pounds. Percent excess weight loss is 77%. Body mass index is reduced from 39.7 down to 28.2. Total BMI point reduction is 11.4. She is only 23 pounds overweight. She lost another 4 pounds since follow-up less than one month ago. PAST MEDICAL HISTORY: 1. Gastroesophageal reflux disease, resolved. 2. Depression. 3. Atypical chest pain, resolved. 4. Osteoarthritis. 5. Depression. PAST SURGICAL HISTORY: 1. Adjustable gastric band placement. 2. Upper endoscopy. 3. Removal of adjustable gastric band. 4. Gastric bypass. MEDICATIONS: 1. Vyvanse. 2. Probiotic. 3. Calcium with vitamin D. 4. Multivitamin. 5. Vitamin C. 6. Prozac. 7. Estrace. ALLERGIES: ASPIRIN. SOCIAL HISTORY: Remote tobacco use. FAMILY HISTORY: Pertinent for morbid obesity. REVIEW OF SYSTEMS: CONSTITUTIONAL: Her highest personal weight for a 5 foot, 9 inches frame is 268 pounds. [place] body weight is 168 pounds. Today she comes when 191 pounds. She has lost 77 pounds. Percent excess weight loss is 77%. Body mass index is reduced from 39.7 down to 28.2. Total BMI point reduction is 11.4. She is only 23 pounds overweight. ENDOCRINE: No reports of thyroid or blood sugar glucose intolerance. HEENT: No troubles with vision or hearing. No dysphagia. CHEST: No reports of dyspnea on exertion. Has history of snoring. No recent evaluation for obstructive sleep apnea. CARDIOVASCULAR: No reports of heart attack or chest pain. GASTROINTESTINAL: Severe gastroesophageal reflux disease, resolved. No dumping syndrome. Reports fatty food intolerance. MUSCULOSKELETAL: Has osteoarthritis of the diffuse joints, improved. NEURO: No reports of stroke or seizure disorders. PSYCH: History of depression without suicidal ideation. HEMATOLOGIC: No reports of easy bruising or bleeding. PHYSICAL EXAM: VITAL SIGNS: 5 feet 9 inches, 191 pounds. Body mass index 28.2. Vital Signs Temp 98.6 F 01/03/17 17:08 Pulse 61 01/03/17 17:08 Resp 16 01/03/17 17:08 BP 101/71 01/03/17 17:08 Pulse Ox ABDOMEN: Soft. Tenderness along the right upper quadrant. No peritoneal signs. CARDIOVASCULAR: Regular rate, rhythm. GENERAL: Well-developed, pleasant female in no acute distress. HEENT: No scleral icterus. Extraocular movements grossly intact. Moist mucosa. NECK: Supple without lymphadenopathy. CHEST: Nonlabored respirations. Equal bilateral excursions. MUSCULOSKELETAL: No clubbing, cyanosis, or edema. Cranial nerves 2 through 12 grossly within normal limits. NEURO: No focal or lateralizing signs. Grossly within normal limits. PSYCH: Appropriate affect. Alert and oriented to person, place, and time. ASSESSMENT: 1. History of morbid obesity due to excess calories. 2. Body mass index reduced from 39.7 to 28.2. 3. Gastric bypass. 4. Right upper quadrant abdominal pain. 5. Family history of gallbladder disease. 6. Gastroesophageal reflux resolved. PLAN: 1. Recommend ultrasound of the right upper quadrant. 2. Recommend laparoscopic cholecystectomy possible open technique. 3. DVT prophylaxis. 4. Antibiotic prophylaxis. 5. Recommend comprehensive metabolic panel. ADDENDUM: Ultrasound demonstrates findings consistent with gallstones.
== END | disposition home or self-care (01) ==
LOC: BARWHC3 15:46
PROVIDERS: ATTEND Surgery Plastic and Reconstructive Surgery
DX: Z48.815 Encounter for surgical aftercare following surgery on the digestive system (principal); E66.01 Morbid (severe) obesity due to excess calories; K21.9 Gastro-esophageal reflux disease without esophagitis; Z68.28 Body mass index [BMI] 28.0-28.9, adult; Z98.84 Bariatric surgery status; Z79.899 Other long term (current) drug therapy; Z88.6 Allergy status to analgesic agent
CPT/HCPCS: 99211

== ENCOUNTER → 2017-01-05 | Outpatient (CLI) | payer BC ==
--- NOTE | 2017-01-05 08:05 | US ---
EXAMINATION TYPE: US gallbladder DATE OF EXAM: 01/05/2017 COMPARISON: 2017 CT CLINICAL HISTORY: R10.11 RUQ Abd Pain. ruq pain EXAM MEASUREMENTS: Liver Length: 18.1 cm Gallbladder Wall: 0.4 cm CBD: 0.42 cm Right Kidney: 11.1 x 5.5 x 5.3 cm Pancreas: tail gassed out, visualized portions wnl Liver: upper limits in size Gallbladder: thickened wall with debris Evidence for sonographic Slade's sign: yes CBD: wnl Right Kidney: wnl IMPRESSION: 1. Limited abdomen ultrasound. 2. Gallbladder debris. 3. There is some gallbladder wall thickening. Clinical correlation for acute cholecystitis is recomme nded.
== END | disposition home or self-care (01) ==
LOC: RADUSWWP 07:29
PROVIDERS: ATTEND Surgery Plastic and Reconstructive Surgery
DX: K82.8 Other specified diseases of gallbladder (principal); R10.11 Right upper quadrant pain
CPT/HCPCS: 76705

== ENCOUNTER → 2017-01-05 | Outpatient (CLI) | payer BC ==
[2017-01-05 08:40] LABS: Basophils # (A) 0.1 k/uL (0-0.2); Basophils % (A) 1 %; CH 29.2; CHCM 32.6; Eosinophils # (A) 0.2 k/uL (0-0.7); Eosinophils % (A) 4 %; HCT 41.6 % (34.0-46.0); HDW 2.21; HGB 13.6 gm/dL (11.4-16.0); Luc # (Auto) 0.15; Luc % (Auto) 3; Lymphocytes # (A) 1.5 k/uL (1.0-4.8); Lymphocytes % (A) 29 %; MCH 29.5 pg (25.0-35.0); MCHC 32.8 g/dL (31.0-37.0); MCV 89.9 fL (80.0-100.0); Monocytes # (A) 0.3 k/uL (0-1.0); Monocytes % (A) 5 %; Neutrophils % (A) 58 %; RBC 4.63 m/uL (3.80-5.40); RDW 13.8 % (11.5-15.5); WBC 5.1 k/uL (3.8-10.6); WBC (Perox) 5.11
[2017-01-05 08:58] LABS: ALT 22 U/L (9-52); AST 20 U/L (14-36); Alkaline Phosphatase 86 U/L (38-126); Anion Gap 9 mmol/L; Blood Urea Nitrogen 15 mg/dL (7-17); Calcium 9.4 mg/dL (8.4-10.2); Carbon Dioxide 29 mmol/L (22-30); Chloride 103 mmol/L (98-107); Glucose 95 mg/dL (74-99); Non-African American GFR(MDRD) >60 (>60 ml/min/1.73 sqM); Potassium 4.3 mmol/L (3.5-5.1); Sodium 141 mmol/L (137-145); Total Bilirubin 0.5 mg/dL (0.2-1.3); Total Protein 7.4 g/dL (6.3-8.2)
== END | disposition home or self-care (01) ==
LOC: LABPAT 07:52
PROVIDERS: ATTEND Surgery Plastic and Reconstructive Surgery
DX: Z01.810 Encounter for preprocedural cardiovascular examination (principal); I10 Essential (primary) hypertension; Z01.812 Encounter for preprocedural laboratory examination
CPT/HCPCS: 80053; 85025

== ENCOUNTER 2017-01-08 06:32 | Day surgery (SDC) | payer BC ==
[2017-01-04 16:05] VITALS: BMI 27.1
[~2017-01-08 06:32] MED LIST changes: -CHLORHEXIDINE GLUCONATE 15 ML CUP MUCOUS MEM ONE; -ENOXAPARIN 40 MG/0.4 ML SYRINGE SQ ONE; -ENOXAPARIN 40 MG/0.4 ML SYRINGE SQ STA; +HEPARIN SODIUM,PORCINE 5,000 UNIT/ML 1 ML VIAL SQ ONE; -LACTATED RINGERS 1,000 ML IV SCH; -MIDAZOLAM 2 MG/2 ML VIAL IV PRN; -PANTOPRAZOLE 40 MG/10 ML VIAL IV STA; +Pre Op ABX Message 1 EACH MISC MISCELLANE ONE; -SCOPOLAMINE 1.5MG/72HR PATCH TRANSDERM ONE
[2017-01-08 06:44] VITALS: RESP 16
--- NOTE | 2017-01-08 06:44 | P.GSHP ---
History of Present Illness H&P Date: 01/08/17 CHIEF COMPLAINT: Cholecystitis HISTORY OF PRESENT ILLNESS: The patient is a 46-year-old female who presents with history of epigastric including right upper quadrant abdominal pain. She underwent diagnostic studies for her gallbladder. Separately her clinical picture was consistent with cholecystitis. Now she presents for surgical intervention. PAST MEDICAL HISTORY: Please see list PAST SURGICAL HISTORY: Please see list MEDICATIONS: Please see list ALLERGIES: Denies. SOCIAL HISTORY: No illicit drug use or recent tobacco use FAMILY HISTORY: Pertinent for gallbladder disease REVIEW OF ORGAN SYSTEMS: CONSTITUTIONAL: No reports of fevers or chills. HEENT: Denies any troubles with the vision or hearing. ENDOCRINE: No reports of hypothyroidism. No diabetes. RESPIRATORY: No recent pneumonias. CARDIOVASCULAR: Denies chest pain or palpitations GI: No blood in stools or constipation. MUSCULOSKELETAL: Has occasional joint pain including back pain. NEURO: No seizure disorders or headaches. No recent stroke. PSYCH: No depression or suicidal ideation. HEMATOLOGIC: No personal or family history of DVTs or pulmonary emboli. PHYSICAL EXAM: VITAL SIGNS: Afebrile vital signs stable GENERAL: Well-developed pleasant in no acute distress. HEENT: No scleral icterus. Extraocular movements grossly intact. Moist buccal mucosa. NECK: Supple without lymphadenopathy. CHEST: Unlabored respirations. Equal bilateral excursions. CARDIOVASCULAR: Regular rate regular rhythm rhythm. Distal 2+ pulses. ABDOMEN: Soft, nondistended. Tender along the epigastrium and right upper quadrant. MUSCULOSKELETAL: No clubbing, cyanosis, or edema. NEURO: Cranial nerves II to XII within normal limits. No focal or lateralizing signs. PSYCH: Alert and oriented to person, place and time. ASSESSMENT: 1. Epigastric and right upper quadrant abdominal pain 2. Chronic cholecystitis 3. Symptomatic gallstones. PLAN: 1. Will need a laparoscopic cholecystectomy possible open. Benefits and risks were described. 2. Heparin for DVT prophylaxis 5000 units. 3. Antibiotic prophylaxis. Past Medical History Past Medical History: Osteoarthritis (OA) Additional Past Medical History / Comment(s): Hx hiatal hernia, migraines History of Any Multi-Drug Resistant Organisms: None Reported Past Surgical History: Bariatric Surgery, Section, Hernia Repair, Hysterectomy, Tonsillectomy, Tubal Ligation Additional Past Surgical History / Comment(s): LAP BAND SURGERY x 2, LAP BAND REMOVAL x 2, tubal reversal, lap mateo-en-y with EGD and repair hiatal hernia with mesh 09/11/2016 Past Anesthesia/Blood Transfusion Reactions: No Reported Reaction Past Psychological History: ADD/ADHD Smoking Status: Former smoker Past Alcohol Use History: Rare Additional Past Alcohol Use History / Comment(s): Smoked 2-3 cigarettes per day for 15 yrs and quit 5 yrs ago. Past Drug Use History: None Reported - Past Family History Mother Family Medical History: Deep Vein Thrombosis (DVT) Sister(s) Family Medical History: Deep Vein Thrombosis (DVT) Father Family Medical History: Deep Vein Thrombosis (DVT) Medications and Allergies Home Medications Medication Instructions Recorded Confirmed Type Estradiol [Estrace] 2 mg PO DAILY 07/05/16 01/08/17 History Fluticasone Nasal [place] [Flonase 1 spr EA NOSTRIL DAILY 08/09/16 01/08/17 History Nasal [place]] Biotin 5 mg PO DAILY 11/29/16 01/08/17 History Calcium Citrate 250 mg PO DAILY 11/29/16 01/08/17 History Cholecalciferol [Vitamin D3] 1,000 unit PO DAILY 11/29/16 01/08/17 History Cyanocobalamin (Vitamin B-12) 1,000 mcg PO DAILY 11/29/16 01/08/17 History [Vitamin B-12] Magnesium 200 mg PO DAILY 11/29/16 01/08/17 History Multivitamins, Thera [Multivitamin 1 tab PO DAILY 11/29/16 01/08/17 History (formulary)] Nystatin 100,000 Unit/gm Powd 1 applic TOPICAL BID PRN 01/04/17 01/08/17 History [Mycostatin Powder] Allergies Allergy/AdvReac Type Severity Reaction Status Date / Time aspirin Allergy bloody nose Verified 01/08/17 06:35 NSAIDS (Non-Steroidal AdvReac GI Upset Verified 01/08/17 06:35 Anti-Inflamma
[2017-01-08] MEDS: LACTATED RINGERS 1,000 ML IV SCH ×2 (06:51→07:23)
[2017-01-08] MEDS ORDERED: PROPOFOL 10 MG/ML 20 ML VIAL IV ONE (07:24)
[2017-01-08] MEDS ORDERED: VECURONIUM 10 MG VIAL IV ONE (07:24)
[2017-01-08] MEDS ORDERED: MIDAZOLAM 2 MG/2 ML VIAL ONE (07:24)
[2017-01-08] MEDS ORDERED: fentaNYL (PF) 50 MCG/ML 2 ML AMP ONE (07:24)
[2017-01-08] MEDS ORDERED: GLYCOPYRROLATE 0.2 MG/ML 2 ML VIAL ONE (07:24)
[2017-01-08] MEDS ORDERED: SUCCINYLCHOLINE CHLORIDE 100 MG/5 ML SYR IV ONE (07:24)
[2017-01-08] MEDS ORDERED: LIDOCAINE 1% INJ 10MG/ML (20 ML MDV) ONE (07:24)
[2017-01-08] MEDS ORDERED: HYDROmorphone (PF) 1 MG/ML ONE (07:24)
[2017-01-08] MEDS ORDERED: ePHEDrine 50 MG/ML 1 ML AMP ONE (07:24)
[2017-01-08] MEDS ORDERED: NEOSTIGMINE 1 MG/ML 10 ML VIAL ONE (07:24)
[2017-01-08] MEDS ORDERED: BUPIVACAIN-EPI 0.5%-1:200,000 30 ML VIAL SQ ONE (07:50)
[2017-01-08] MEDS ORDERED: LACTATED RINGERS 1,000 ML IV ONE (08:05)
[2017-01-08 08:58] VITALS: TEMP 96.9
[2017-01-08] MEDS ORDERED: NALOXONE 0.4 MG/ML 1 ML VIAL IV PRN (09:02)
[2017-01-08] MEDS: HYDROmorphone 1 MG/ML 1 ML SYRINGE IVP PRN ×2 (09:10→09:20)
[2017-01-08] MEDS ORDERED: ONDANSETRON 4 MG/2 ML VIAL IVP PRN (09:32)
[2017-01-08] MEDS ORDERED: HYDROcodone/APAP 5-325MG 1 EACH TAB PO PRN (09:32)
--- NOTE | 2017-01-08 09:44 | P.PCN ---
Date of Procedure: 01/08/17 Preoperative Diagnosis: Symptomatic gallstones, cholecystitis Postoperative Diagnosis: Same Procedure(s) Performed: Laparoscopic lysis of adhesions over 30 minutes, laparoscopic cholecystectomy Implants: Anesthesia: GETA, local Surgeon: Kayleigh Workman Estimated Blood Loss (ml): 30 Pathology: other Condition: stable (Gallbladder) Disposition: same day Indications for Procedure: Operative Findings: Severe peritoneal adhesions adding moderate complexity of case. Description of Procedure:
[2017-01-08 11:14] VITALS: BP 97/67; PULSE 55
--- NOTE | 2017-01-11 09:08 | CDI ---
Documentation Clarification OP Dear Dr. Workman, Please provide clarification regarding the full procedure description on the operative report. PLEASE RESPOND TO THIS QUERY BY DICTATING AN ADDENDUM TO YOUR OPERATIVE REPORT. Thank you for your assistance. Elo Marshall [facility] If you ahve any questions, pleast contact Enriqueta [place]ney at [facility]
== END 2017-01-08 11:09 | disposition home or self-care (01) ==
LOC: OR 06:32
PROVIDERS: ATTEND Surgery Plastic and Reconstructive Surgery
DX: K81.1 Chronic cholecystitis (principal); K66.0 Peritoneal adhesions (postprocedural) (postinfection); K21.9 Gastro-esophageal reflux disease without esophagitis; Z87.891 Personal history of nicotine dependence; Z98.84 Bariatric surgery status; M19.90 Unspecified osteoarthritis, unspecified site; Z79.51 Long term (current) use of inhaled steroids; Z79.899 Other long term (current) drug therapy; Z88.6 Allergy status to analgesic agent
CPT/HCPCS: 88304; 47562; J2250; J1644; J1100; J2710; J0690; J2405; J2001; J3010; J1170; J0131; J0330; J2704

== ENCOUNTER → 2017-01-10 | Outpatient (CLI) | payer BC ==
[2017-01-10 14:42] VITALS: BP 108/67; PULSE 85; RESP 16; TEMP 98.7; BMI 27.9
--- NOTE | 2017-01-24 12:49 | P.PN ---
Progress Note - Text DATE OF SERVICE: 01/10/2017. CHIEF COMPLAINT: Follow-up gastric bypass. HISTORY OF PRESENT ILLNESS: Lacey Fuentes is a 46-year-old female with removal of gastric band removed on 07/12/2016 and Mariya-en-Y gastric bypass revision on September 11, 2016. 1 week ago, she came in with right upper quadrant abdominal pain. Ultrasound was consistent with chronic cystitis and gallstones. She is now status post cholecystectomy, 01/08/2017. She denies any reflux disease. Overall she's doing remarkably better. Her highest personal weight for a 5 foot, 9 inches frame is 268 pounds. [place] body weight is 168 pounds. Today she comes when 189 pounds. She has lost 79 pounds. Percent excess weight loss is 79%. Body mass index is reduced from 39.7 down to 27.9. Total BMI point reduction is 11.7. She is only 21 pounds overweight. She lost another 2 pounds in 1 week. PHYSICAL EXAM: VITAL SIGNS: 5 feet 9 inches, 189 pounds. Body mass index 28.2. Vital Signs Temp 98.7 F 01/10/17 14:39 Pulse 85 01/10/17 14:39 Resp 16 01/10/17 14:39 BP 108/67 01/10/17 14:39 Pulse Ox ABDOMEN: Soft. Improvement of right upper quadrant abdominal pain. Incisions clean dry and intact. CARDIOVASCULAR: Regular rate, rhythm. GENERAL: Well-developed, pleasant female in no acute distress. HEENT: No scleral icterus. Extraocular movements grossly intact. Moist mucosa. NECK: Supple without lymphadenopathy. CHEST: Nonlabored respirations. Equal bilateral excursions. MUSCULOSKELETAL: No clubbing, cyanosis, or edema. Cranial nerves 2 through 12 grossly within normal limits. NEURO: No focal or lateralizing signs. Grossly within normal limits. PSYCH: Appropriate affect. Alert and oriented to person, place, and time. ASSESSMENT: 1. History of morbid obesity due to excess calories. 2. Body mass index reduced from 39.7 to 27.9. 3. Gastric bypass. 4. Chronic cholecystitis. PLAN: 1. She is doing well. Diet as tolerated. 2. No lifting over 4 pounds in 2 weeks. 3. Follow-up in February 2017, 6 months postop from her gastric bypass.
== END | disposition home or self-care (01) ==
LOC: BARWHC3 14:32
PROVIDERS: ATTEND Surgery Plastic and Reconstructive Surgery
DX: Z09 Encounter for follow-up examination after completed treatment for conditions other than malignant neoplasm (principal); K81.1 Chronic cholecystitis; Z98.84 Bariatric surgery status
CPT/HCPCS: 99211

== ENCOUNTER → 2017-01-31 | Outpatient (CLI) | payer BC ==
[2017-01-31 16:05] VITALS: BP 119/64; PULSE 63; RESP 16; TEMP 98.3; BMI 27.5
--- NOTE | 2017-03-03 12:28 | P.PN ---
Progress Note - Text DATE OF SERVICE: 01/31/2017. CHIEF COMPLAINT: Follow-up gastric bypass. HISTORY OF PRESENT ILLNESS: Lacey Fuentes is a 46-year-old female with removal of gastric band removed on 07/12/2016 and Mariya-en-Y gastric bypass revision on September 11, 2016. She reports recently falling onto her right side along the right upper quadrant including left upper quadrant. She has a family history of kidney stones. She denies any increased abdominal pain. Since her cholecystectomy, she reports resolution of her abdominal pain. She is status post cholecystectomy 01/08/2017. Her corrected height is 5 foot, 7.5 inches and weighed 268 pounds. [place] body weight is 158 pounds. Today she comes when 186 pounds. She has lost 82 pounds. Percent excess weight loss is 75%. Body mass index is reduced from 41.4 down to 28.7. Total BMI point reduction is 12.6. She is 28 pounds overweight. She lost another 3 pounds in 3 weeks. PHYSICAL EXAM: VITAL SIGNS: 5 feet 7.5 inches, 186 pounds. Body mass index 28.7. Vital Signs Temp 98.3 F 01/31/17 16:01 Pulse 63 01/31/17 16:01 Resp 16 01/31/17 16:01 BP 119/64 01/31/17 16:01 Pulse Ox ABDOMEN: Soft. Incisions are clean, dry, and intact. CARDIOVASCULAR: Regular rate, rhythm. GENERAL: Well-developed, pleasant female in no acute distress. HEENT: No scleral icterus. Extraocular movements grossly intact. Moist mucosa. NECK: Supple without lymphadenopathy. CHEST: Nonlabored respirations. Equal bilateral excursions. No ecchymosis along the chest. Tender to touch along the right chest wall. MUSCULOSKELETAL: No clubbing, cyanosis, or edema. Cranial nerves 2 through 12 grossly within normal limits. NEURO: No focal or lateralizing signs. Grossly within normal limits. PSYCH: Appropriate affect. Alert and oriented to person, place, and time. ASSESSMENT: 1. History of morbid obesity due to excess calories. 2. Body mass index reduced from 41.4 to 28.7. 3. Status post cholecystectomy. 4. Status post fall onto chest wall. PLAN: 1. Recommend chest x-ray for history of fall onto chest. 2. With her family history of kidney stones, recommend CT of the abdomen and pelvis without contrast.
== END | disposition home or self-care (01) ==
LOC: BARWHC3 15:43
PROVIDERS: ATTEND Surgery Plastic and Reconstructive Surgery
DX: Z09 Encounter for follow-up examination after completed treatment for conditions other than malignant neoplasm (principal); Z90.49 Acquired absence of other specified parts of digestive tract; Z98.84 Bariatric surgery status
CPT/HCPCS: 99211

== ENCOUNTER → 2017-02-13 | Outpatient (CLI) | payer BC ==
--- NOTE | 2017-02-13 08:03 | CT ---
EXAMINATION TYPE: CT abdomen pelvis wo con DATE OF EXAM: 02/13/2017 COMPARISON: 10/02/2016 HISTORY: LUQ and RUQ pain. Left flank pain CT DLP: 563.80 mGycm Examination of the solid and hollow viscera is limited given the lack of contrast. FINDINGS: LUNG BASES: No evidence for nodule. No evidence for infiltrate. LIVER/GB: Cholecystectomy clips are in place. No space-occupying hepatic lesion. PANCREAS: No pancreatic mass identified. No inflammatory process seen. SPLEEN: No evidence for splenomegaly. No intrasplenic lesions seen. ADRENALS: No adrenal nodules identified. No evidence for thickening. KIDNEYS: No evidence for renal mass. No nephrolithiasis. No hydronephrosis. BOWEL: Changes of Mariya-en-Y gastric bypass. No unusual collections identified. Appendix has a normal appearance. No evidence of bowel obstruction. No inflammatory process. Lymph nodes: No evidence for adenopathy greater than 1 cm. Abdominal aorta: Atheromatous changes seen. No evidence for aneurysm. Genital organs: Hysterectomy changes identified. Other: No significant abnormality. IMPRESSION: 1. POSTOPERATIVE CHANGES DISCUSSED WITHOUT EVIDENCE FOR ACUTE INTRA-ABDOMINAL PROCESS
--- NOTE | 2017-02-13 08:07 | XR ---
EXAMINATION TYPE: XR chest 2V DATE OF EXAM: 02/13/2017 COMPARISON: 08/09/2016 HISTORY: 46 year-old female shortness of breath and chest pain TECHNIQUE: Frontal and lateral views FINDINGS: The cardiomediastinal silhouette, aorta, and pulmonary vasculature are within normal limits. Some str jonatan areas of atelectasis. Otherwise, lungs and pleural spaces are clear. IMPRESSION: No acute cardiopulmonary process.
== END | disposition home or self-care (01) ==
LOC: RADCTMAIN 07:29
PROVIDERS: ATTEND Surgery Plastic and Reconstructive Surgery
DX: R10.10 Upper abdominal pain, unspecified (principal); R06.02 Shortness of breath; R07.9 Chest pain, unspecified; Z98.890 Other specified postprocedural states
CPT/HCPCS: 71020; 74176

== ENCOUNTER → 2017-06-07 | Outpatient (CLI) | payer BC ==
[2017-06-07 10:54] VITALS: BP 119/63; PULSE 73; RESP 16; TEMP 98.2; BMI 25.7
[2017-06-07 11:42] LABS: HCT 42.4 % (34.0-46.0); HGB 13.4 gm/dL (11.4-16.0); MCHC 31.7 g/dL (31.0-37.0); MCV 91.7 fL (80.0-100.0); Mean Platelet Volume 8.7; Platelet Count 294 k/uL (150-450); RBC 4.62 m/uL (3.80-5.40); WBC 4.8 k/uL (3.8-10.6)
[2017-06-07 11:49] LABS: Partial Thromboplastin Time 23.4 sec (22.0-30.0); Prothrombin Time 10.3 sec (9.0-12.0)
[2017-06-07 12:03] LABS: ALT 29 U/L (9-52); AST 22 U/L (14-36); Albumin 4.3 g/dL (3.5-5.0); Alkaline Phosphatase 88 U/L (38-126); Anion Gap 7 mmol/L; Blood Urea Nitrogen 9 mg/dL (7-17); Calcium 9.6 mg/dL (8.4-10.2); Carbon Dioxide 31 mmol/L (22-30); Chloride 102 mmol/L (98-107); Cholesterol 188 mg/dL (<200); Glucose 97 mg/dL (74-99); HDL Cholesterol 92 mg/dL (40-60); LDL Cholesterol,Calculated 76 mg/dL (0-99); Phosphorous 3.5 mg/dL (2.5-4.5); Potassium 4.1 mmol/L (3.5-5.1); Sodium 140 mmol/L (137-145); Total Bilirubin 0.3 mg/dL (0.2-1.3); Total Protein 7.3 g/dL (6.3-8.2); Triglycerides 99 mg/dL (<150)
[2017-06-07 18:41] LABS: Iron Saturation 9.5 (12.00-45.00)
[2017-06-07 18:51] LABS: Vitamin D 25 Hydroxy 37.5 ng/mL (30.0-100.0)
[2017-06-07 19:25] LABS: Folate, Serum 23.5 ng/mL
[2017-06-07 20:29] LABS: Parathyroid Hormone Intact 57.5 pg/mL (14.0-72.0)
[2017-06-07 20:43] LABS: Hemoglobin A1C 5.1 % (4.0-6.0)
[2017-06-08 12:58] LABS: Zinc, Serum 80 ug/dL (60-130)
[2017-06-11 05:25] LABS: Vitamin B1 57 ug/L (38-122)
[2017-06-11 05:43] LABS: Vitamin A 57 ug/dL (38-106)
[2017-06-13 19:59] LABS: Selenium 131 mcg/L (63-160)
--- NOTE | 2017-08-05 14:08 | P.PN ---
Subjective Progress Note Date: 06/07/17 DATE OF SERVICE: 06/07/2017 CHIEF COMPLAINT: Follow up gastric bypass HISTORY OF PRESENT ILLNESS: Lacey Fuentes is a 46-year-old female who is status post gastric bypass on 09/11/16. She is 9 months postop. Gastroesophageal reflux disease is resolved. She comes in with troubles with her pannus. She reports rich. She reports intermittent hypoglycemic events. Separately, she is very happy with her weight loss. No reports of dysphagia. Her abdominal pain is resolved. She comes in with history of panniculectomy. Her highest weight was 268 pounds for a 5 foot 9 frame. She comes in weighing 167 pounds. She has been able to maintain a 101 pound weight loss. At her height of 5 foot 7.75, her ideal body weight is 158 pounds. Her previous body mass index was 41.1. Today she comes in with body mass index reduced from 41.1 down to 25.7. She has 92% excess weight loss. PAST MEDICAL HISTORY: 1. Sleep apnea. 2. Osteoarthritis of the bilateral hips. 3. Osteoarthritis of the bilateral knees. 4. Gastroesophageal reflux disease. 5. Obstructive sleep apnea. 6. History of morbid obesity. PAST SURGICAL HISTORY: 1. Removal of adjustable gastric band. 2. Upper endoscopy. 3. Status post gastric bypass. MEDICATIONS: 1. Multivitamin. 2. Magnesium. 3. Flonase nasal spray. 4. Estrace. 5. Vitamin B12. 6. Vitamin D. 7. Calcium. 8. Biotin. ALLERGIES: ASPIRIN SOCIAL HISTORY: Remote tobacco use. FAMILY HISTORY: Pertinent for morbid obesity. REVIEW OF SYSTEMS: CONSTITUTIONAL: Her highest weight was 268 pounds for a 5 foot 9 frame. She comes in weighing 167 pounds. She has been able to maintain a 101 pound weight loss. At her height of 5 foot 7.75, her ideal body weight is 158 pounds. Her previous body mass index was 41.1. Today she comes in with body mass index reduced from 41.1 down to 25.7. She has 92% excess weight loss. GASTROINTESTINAL: History of severe gastroesophageal reflux disease now resolved. No dumping syndrome. ENDOCRINE: No reports of thyroid or blood sugar glucose intolerance. HEENT: No troubles with vision or hearing. CHEST: No reports of dyspnea on exertion. Has history of snoring, now resolved. CARDIOVASCULAR: No reports of heart attack or chest pain. MUSCULOSKELETAL: Has osteoarthritis of the diffuse joints, improved. NEURO: No reports of stroke or seizure disorders. PSYCH: History of depression without suicidal ideation. HEMATOLOGIC: No reports of easy bruising or bleeding. SKIN: History of rash from panniculitis. PHYSICAL EXAM: VITAL SIGNS: 5 foot 7.75, 167 pounds. Body mass is 25.7. Vital Signs Temp 98.2 F 06/07/17 10:51 Pulse 73 06/07/17 10:51 Resp 16 06/07/17 10:51 BP 119/63 06/07/17 10:51 Pulse Ox GENERAL: Well-developed, pleasant female in no acute distress. ABDOMEN: Soft, nontender, nondistended, moderate-sized pannus over 6 pounds. His panniculitis. HEENT: No scleral icterus. Extraocular movements grossly intact. Moist mucosa. NECK: Supple without lymphadenopathy. CHEST: Nonlabored respirations. Equal bilateral excursions. CARDIOVASCULAR: Regular rate and rhythm. MUSCULOSKELETAL: No clubbing, cyanosis, or edema. Cranial nerves 2 through 12 grossly within normal limits. NEURO: No focal or lateralizing signs. Grossly within normal limits. PSYCH: Appropriate affect. Alert and oriented to person, place, and time. SKIN: Well perfused. Good skin turgor. ASSESSMENT: 1. Morbid obesity due to excess calories. 2. Body mass index reduced from 41.1.down to 25.7. 3. Gastroesophageal reflux disease, resolved. 4. Hypertension, resolved. 5. Obstructive sleep apnea, resolved. 6. Left knee osteoarthritis, resolved. 7. Bilateral osteoarthritis, resolved. 8. Degenerative joint disease of the lower back, resolved. 9. Status post gastric bypass. 10. Panniculitis. 11. Status post massive weight loss, 101 pounds. 12. Iron deficiency anemia. PLAN: 1. She has used medicated problems for her skin. Continue in the interim. 2. Recommend panniculectomy. Benefits and risks of panniculectomy including pain, flap failure, seromas were reviewed. 3. She is 9 months postop. Recommend reevaluation 1 year postprocedure. 4. Recommend bariatric metabolic panel. 5. Recommend iron supplement. Laboratory Last Values WBC 4.8 k/uL (3.8-10.6) 06/07/17 11:21 RBC 4.62 m/uL (3.80-5.40) 06/07/17 11:21 Hgb 13.4 gm/dL (11.4-16.0) 06/07/17 11:21 Hct 42.4 % (34.0-46.0) 06/07/17 11:21 MCV 91.7 fL (80.0-100.0) 06/07/17 11:21 MCH 29.0 pg (25.0-35.0) 06/07/17 11:21 MCHC 31.7 g/dL (31.0-37.0) 06/07/17 11:21 RDW 14.0 % (11.5-15.5) 06/07/17 11:21 Plt Count 294 k/uL (150-450) 06/07/17 11:21 PT 10.3 sec (9.0-12.0) 06/07/17 11:21 INR 1.0 (<1.2) 06/07/17 11:21 APTT 23.4 sec (22.0-30.0) 06/07/17 11:21 Sodium 140 mmol/L (137-145) 06/07/17 11:21 Potassium 4.1 mmol/L (3.5-5.1) 06/07/17 11:21 Chloride 102 mmol/L (98-107) 06/07/17 11:21 Carbon Dioxide 31 mmol/L (22-30) H 06/07/17 11:21 Anion Gap 7 mmol/L 06/07/17 11:21 BUN 9 mg/dL (7-17) 06/07/17 11:21 Creatinine 0.80 mg/dL (0.52-1.04) 06/07/17 11:21 Est GFR (MDRD) Af Amer >60 (>60 ml/min/1.73 sqM) 06/07/17 11:21 Est GFR (MDRD) Non-Af >60 (>60 ml/min/1.73 sqM) 06/07/17 11:21 Glucose 97 mg/dL (74-99) 06/07/17 11:[address] Glu mg/dL 100 06/07/17 11:21 Hemoglobin A1c 5.1 % (4.0-6.0) 06/07/17 11:21 Calcium 9.6 mg/dL (8.4-10.2) 06/07/17 11:21 Phosphorus 3.5 mg/dL (2.5-4.5) 06/07/17 11:21 Magnesium 2.0 mg/dL (1.6-2.3) 06/07/17 11:21 Iron 40 ug/dL (50-170) L 06/07/17 11:21 TIBC 421 ug/dL (228-460) 06/07/17 11:21 Iron Saturation 9.50 (12.00-45.00) L 06/07/17 11:21 Ferritin 7.3 ng/mL (10.0-291.0) L 06/07/17 11:21 Total Bilirubin 0.3 mg/dL (0.2-1.3) 06/07/17 11:21 AST 22 U/L (14-36) 06/07/17 11:21 ALT 29 U/L (9-52) 06/07/17 11:21 Alkaline Phosphatase 88 U/L (38-126) 06/07/17 11:21 Total Protein 7.3 g/dL (6.3-8.2) 06/07/17 11:21 Albumin 4.3 g/dL (3.5-5.0) 06/07/17 11:21 Prealbumin 22.0 mg/dL (18.0-42.0) 06/07/17 11:21 Triglycerides 99 mg/dL (<150) 06/07/17 11:21 Cholesterol 188 mg/dL (<200) 06/07/17 11:21 LDL Cholesterol, Calc 76 mg/dL (0-99) 06/07/17 11:21 HDL Cholesterol 92 mg/dL (40-60) H 06/07/17 11:21 Vitamin A 57 ug/dL (38-106) 06/07/17 11:21 Vitamin B1 57 ug/L (38-122) 06/07/17 11:21 Vitamin B12 695.0 pg/mL (200.0-944.0) 06/07/17 11:21 Vitamin D 25-Hydroxy 37.5 ng/mL (30.0-100.0) 06/07/17 11:21 Folate 23.5 ng/mL 06/07/17 11:21 TSH 2.060 mIU/L (0.465-4.680) 06/07/17 11:21 PTH Intact 57.5 pg/mL (14.0-72.0) 06/07/17 11:21 Copper 1817 ug/L (810-1990) 06/07/17 11:21 Selenium 131 mcg/L (63-160) 06/07/17 11:21 Zinc 80 ug/dL (60-130) 06/07/17 11:21 Objective - Vital Signs Vital signs: Vital Signs Temp 98.2 F 06/07/17 10:51 Pulse 73 06/07/17 10:51 Resp 16 06/07/17 10:51 BP 119/63 06/07/17 10:51 Pulse Ox Intake & Output 06/06/17 06/07/17 06/07/17 18:59 06:59 18:59 Weight 76.005 kg - Labs CBC & Chem 7: 06/07/17 11:21 06/07/17 11:21
== END | disposition home or self-care (01) ==
LOC: BARWHC3 10:36
PROVIDERS: ATTEND Surgery Plastic and Reconstructive Surgery
DX: Z09 Encounter for follow-up examination after completed treatment for conditions other than malignant neoplasm (principal); E66.01 Morbid (severe) obesity due to excess calories; M79.3 Panniculitis, unspecified; D50.9 Iron deficiency anemia, unspecified; E21.1 Secondary hyperparathyroidism, not elsewhere classified; E89.1 Postprocedural hypoinsulinemia; K90.9 Intestinal malabsorption, unspecified; E55.9 Vitamin D deficiency, unspecified; K76.9 Liver disease, unspecified; N19 Unspecified kidney failure; K50.90 Crohn's disease, unspecified, without complications; Z68.25 Body mass index [BMI] 25.0-25.9, adult; Z87.891 Personal history of nicotine dependence; Z98.84 Bariatric surgery status; Z88.6 Allergy status to analgesic agent; Z79.899 Other long term (current) drug therapy
CPT/HCPCS: 36415; 80053; 80061; 82306; 82525; 82607; 82728; 82746; 83036; 83540; 83550; 83735; 83970; 84100; 84134; 84255; 84425; 84443; 84590; 84630; 85027; 85610; 85730; 99211

== ENCOUNTER → 2017-10-03 | Outpatient (CLI) | payer BC ==
[2017-10-03 15:44] VITALS: BP 120/82; PULSE 64; TEMP 98; BMI 24.5
[2017-10-03 17:01] LABS: HCT 37.3 % (34.0-46.0); HGB 12.3 gm/dL (11.4-16.0); MCH 28.9 pg (25.0-35.0); MCV 87.6 fL (80.0-100.0); Mean Platelet Volume 8.2; Platelet Count 238 k/uL (150-450); RBC 4.26 m/uL (3.80-5.40); RDW 12.4 % (11.5-15.5); WBC 5.4 k/uL (3.8-10.6)
[2017-10-03 17:14] LABS: INR 1.1 (<1.2); Partial Thromboplastin Time 23.5 sec (22.0-30.0); Prothrombin Time 10.4 sec (9.0-12.0)
[2017-10-03 17:36] LABS: ALT 21 U/L (9-52); AST 20 U/L (14-36); Albumin 4.2 g/dL (3.5-5.0); Alkaline Phosphatase 91 U/L (38-126); Anion Gap 8 mmol/L; Blood Urea Nitrogen 12 mg/dL (7-17); Calcium 9.7 mg/dL (8.4-10.2); Carbon Dioxide 31 mmol/L (22-30); Chloride 102 mmol/L (98-107); Cholesterol 162 mg/dL (<200); Glucose 97 mg/dL (74-99); HDL Cholesterol 89 mg/dL (40-60); LDL Cholesterol,Calculated 57 mg/dL (0-99); Magnesium 2.3 mg/dL (1.6-2.3); Phosphorus 3.1 mg/dL (2.5-4.5); Potassium 4.2 mmol/L (3.5-5.1); Sodium 141 mmol/L (137-145); Total Bilirubin 0.3 mg/dL (0.2-1.3); Total Protein 7.2 g/dL (6.3-8.2); Triglycerides 79 mg/dL (<150)
[2017-10-04 01:19] LABS: Iron Saturation 15.85 (12.00-45.00)
[2017-10-04 01:33] LABS: Vitamin D 25 Hydroxy 35.5 ng/mL (30.0-100.0)
[2017-10-04 02:14] LABS: Hemoglobin A1C 4.7 % (4.0-6.0)
[2017-10-04 02:15] LABS: Folate, Serum >24.0 ng/mL
[2017-10-04 02:28] LABS: Parathyroid Hormone Intact 56.4 pg/mL (14.0-72.0)
[2017-10-04 16:21] LABS: Zinc, Serum 68 ug/dL (60-130)
[2017-10-05 00:56] LABS: Vitamin B1 52 ug/L (38-122)
[2017-10-05 08:41] LABS: Vitamin A 48 ug/dL (38-106)
[2017-10-06 23:21] LABS: Selenium 123 mcg/L (63-160)
--- NOTE | 2017-11-16 10:23 | P.PN ---
Subjective Progress Note Date: 10/03/17 DATE OF SERVICE: 10/03/2017 CHIEF COMPLAINT: Follow up gastric bypass HISTORY OF PRESENT ILLNESS: Lacey Fuentes is a 46-year-old female who is status post gastric bypass on 09/11/16. She is more than 1 year out from her revision of gastric band to a gastric bypass. She complains of new onset gastroesophageal reflux disease. She complains of epigastric abdominal pain. Separately she comes in for troubles with her pannus. She has been using nystatin powder for more than one year. She reports pulling sensation and pain from her pannus. Her highest weight was 268 pounds for a 5 foot 7.75 frame. She comes in weighing 160 pounds. She has been able to maintain a 108 pound weight loss. She has lost 7 pounds in 4 months. At her height of 5 foot 7.75, her ideal body weight is 158 pounds. Her previous body mass index was 41.1. Today she comes in with body mass index reduced from 41.1 down to 24.6. She has 98% excess weight loss. PAST MEDICAL HISTORY: 1. Sleep apnea. 2. Osteoarthritis of the bilateral hips. 3. Osteoarthritis of the bilateral knees. 4. Gastroesophageal reflux disease. 5. Obstructive sleep apnea. 6. History of morbid obesity. PAST SURGICAL HISTORY: 1. Placement of gastric band. 2. Removal of adjustable gastric band. 3. Upper endoscopy. 4. Status post gastric bypass. MEDICATIONS: 1. Multivitamin. 2. Magnesium. 3. Flonase nasal spray. 4. Estrace. 5. Vitamin B12. 6. Vitamin D. 7. Calcium. 8. Biotin. ALLERGIES: ASPIRIN SOCIAL HISTORY: Remote tobacco use. FAMILY HISTORY: Pertinent for morbid obesity. REVIEW OF SYSTEMS: CONSTITUTIONAL: Her highest weight was 268 pounds for a 5 foot 7.75 frame. She comes in weighing 160 pounds. She has been able to maintain a 108 pound weight loss. She has lost 7 pounds in 4 months. At her height of 5 foot 7.75, her ideal body weight is 158 pounds. Her previous body mass index was 41.1. Today she comes in with body mass index reduced from 41.1 down to 24.6. She has 98% excess weight loss. GASTROINTESTINAL: History of severe gastroesophageal reflux disease now improved. No dumping syndrome. ENDOCRINE: No reports of thyroid or blood sugar glucose intolerance. HEENT: No troubles with vision or hearing. CHEST: No reports of dyspnea on exertion. Has history of snoring, now resolved. CARDIOVASCULAR: No reports of heart attack or chest pain. MUSCULOSKELETAL: Has osteoarthritis of the diffuse joints, improved. NEURO: No reports of stroke or seizure disorders. PSYCH: History of depression without suicidal ideation. HEMATOLOGIC: No reports of easy bruising or bleeding. SKIN: History of rash from panniculitis. PHYSICAL EXAM: VITAL SIGNS: 5 foot 7.75, 160 pounds. Body mass is 24.6 Vital Signs Temp 98 F 10/03/17 15:40 Pulse 64 10/03/17 15:40 Resp BP 120/82 10/03/17 15:40 Pulse Ox GENERAL: Well-developed, pleasant female in no acute distress. ABDOMEN: Soft, nontender, nondistended. Pannus of her pubis 4 cm. Weight of pannus over 5 pounds. HEENT: No scleral icterus. Extraocular movements grossly intact. Moist mucosa. NECK: Supple without lymphadenopathy. CHEST: Nonlabored respirations. Equal bilateral excursions. CARDIOVASCULAR: Regular rate and rhythm. MUSCULOSKELETAL: No clubbing, cyanosis, or edema. Cranial nerves 2 through 12 grossly within normal limits. NEURO: No focal or lateralizing signs. Grossly within normal limits. PSYCH: Appropriate affect. Alert and oriented to person, place, and time. SKIN: Well perfused. Good skin turgor. ASSESSMENT: 1. Morbid obesity due to excess calories. 2. Body mass index reduced from 41.1.down to 24.6 3. Gastroesophageal reflux disease, resolved. 4. Hypertension, resolved. 5. Obstructive sleep apnea, resolved. 6. Left knee osteoarthritis, resolved. 7. Bilateral osteoarthritis, resolved. 8. Degenerative joint disease of the lower back, resolved. 9. Status post gastric bypass. 10. Panniculitis. 11. Status post massive weight loss, 108 pounds. 12. Iron deficiency anemia. 13. Epigastric abdominal pain PLAN: 1. She is more the from her procedure. As she is treated for panniculitis, she has medical refractory symptoms. Recommend evaluation for panniculectomy. 2. She has maintained over 100+ pound weight loss. Her weight is stable. She also reports her pannus is affecting her daily living including exercising. 3. Benefits and risks of panniculectomy including bleeding, infection, flap failure, placement is strange, cosmetic deformity reviewed in detail. 4. Recommend correction of any nutritional deficiencies. 5. Two week high-protein diet advised prior to procedure for optimal recovery 6. Recommend bariatric metabolic panel. 7. Recommend upper endoscopy with balloon dilatation for her epigastric abdominal pain and possible stricture. Laboratory Last Values WBC 5.4 k/uL (3.8-10.6) 10/03/17 16:45 RBC 4.26 m/uL (3.80-5.40) 10/03/17 16:45 Hgb 12.3 gm/dL (11.4-16.0) 10/03/17 16:45 Hct 37.3 % (34.0-46.0) 10/03/17 16:45 MCV 87.6 fL (80.0-100.0) 10/03/17 16:45 MCH 28.9 pg (25.0-35.0) 10/03/17 16:45 MCHC 33.0 g/dL (31.0-37.0) 10/03/17 16:45 RDW 12.4 % (11.5-15.5) 10/03/17 16:45 Plt Count 238 k/uL (150-450) 10/03/17 16:45 PT 10.4 sec (9.0-12.0) 10/03/17 16:45 INR 1.1 (<1.2) 10/03/17 16:45 APTT 23.5 sec (22.0-30.0) 10/03/17 16:45 Sodium 141 mmol/L (137-145) 10/03/17 16:45 Potassium 4.2 mmol/L (3.5-5.1) 10/03/17 16:45 Chloride 102 mmol/L (98-107) 10/03/17 16:45 Carbon Dioxide 31 mmol/L (22-30) H 10/03/17 16:45 Anion Gap 8 mmol/L 10/03/17 16:45 BUN 12 mg/dL (7-17) 10/03/17 16:45 Creatinine 0.70 mg/dL (0.52-1.04) 10/03/17 16:45 Est GFR (CKD-EPI)AfAm >90 (>60 ml/min/1.73 sqM) 10/03/17 16:45 Est GFR (CKD-EPI)NonAf >90 (>60 ml/min/1.73 sqM) 10/03/17 16:45 Glucose 97 mg/dL (74-99) 10/03/17 16:[address] Glu mg/dL 88 10/03/17 16:45 Hemoglobin A1c 4.7 % (4.0-6.0) 10/03/17 16:45 Calcium 9.7 mg/dL (8.4-10.2) 10/03/17 16:45 Phosphorus 3.1 mg/dL (2.5-4.5) 10/03/17 16:45 Magnesium 2.3 mg/dL (1.6-2.3) 10/03/17 16:45 Iron 65 ug/dL (50-170) 10/03/17 16:45 TIBC 410 ug/dL (228-460) 10/03/17 16:45 Iron Saturation 15.85 (12.00-45.00) 10/03/17 16:45 Ferritin 14.3 ng/mL (10.0-291.0) 10/03/17 16:45 Total Bilirubin 0.3 mg/dL (0.2-1.3) 10/03/17 16:45 AST 20 U/L (14-36) 10/03/17 16:45 ALT 21 U/L (9-52) 10/03/17 16:45 Alkaline Phosphatase 91 U/L (38-126) 10/03/17 16:45 Total Protein 7.2 g/dL (6.3-8.2) 10/03/17 16:45 Albumin 4.2 g/dL (3.5-5.0) 10/03/17 16:45 Prealbumin 21.0 mg/dL (18.0-42.0) 10/03/17 16:45 Triglycerides 79 mg/dL (<150) 10/03/17 16:45 Cholesterol 162 mg/dL (<200) 10/03/17 16:45 LDL Cholesterol, Calc 57 mg/dL (0-99) 10/03/17 16:45 HDL Cholesterol 89 mg/dL (40-60) H 10/03/17 16:45 Vitamin A 48 ug/dL (38-106) 10/03/17 16:45 Vitamin B1 52 ug/L (38-122) 10/03/17 16:45 Vitamin B12 1146.0 pg/mL (200.0-944.0) H 10/03/17 16:45 Vitamin D 25-Hydroxy 35.5 ng/mL (30.0-100.0) 10/03/17 16:45 Folate >24.0 ng/mL 10/03/17 16:45 TSH 1.270 mIU/L (0.465-4.680) 10/03/17 16:45 PTH Intact 56.4 pg/mL (14.0-72.0) 10/03/17 16:45 Copper 1766 ug/L (810-1990) 10/03/17 16:45 Selenium 123 mcg/L (63-160) 10/03/17 16:45 Zinc 68 ug/dL (60-130) 10/03/17 16:45 No nutritional deficiencies identified Objective - Vital Signs Vital signs: Vital Signs Temp 98 F 10/03/17 15:40 Pulse 64 10/03/17 15:40 Resp BP 120/82 10/03/17 15:40 Pulse Ox Intake & Output 10/02/17 10/03/17 10/03/17 18:59 06:59 18:59 Weight 72.711 kg - Labs CBC & Chem 7: 10/03/17 16:45 10/03/17 16:45
== END | disposition home or self-care (01) ==
LOC: BARWHC3 14:57
PROVIDERS: ATTEND Surgery Plastic and Reconstructive Surgery
DX: Z09 Encounter for follow-up examination after completed treatment for conditions other than malignant neoplasm (principal); E66.01 Morbid (severe) obesity due to excess calories; M79.3 Panniculitis, unspecified; D50.9 Iron deficiency anemia, unspecified; R10.13 Epigastric pain; R63.4 Abnormal weight loss; Z98.84 Bariatric surgery status; Z68.24 Body mass index [BMI] 24.0-24.9, adult; Z88.6 Allergy status to analgesic agent; Z79.899 Other long term (current) drug therapy; Z79.3 Long term (current) use of hormonal contraceptives
CPT/HCPCS: 36415; 80053; 80061; 82306; 82525; 82607; 82728; 82746; 83036; 83540; 83550; 83735; 83970; 84100; 84134; 84255; 84425; 84443; 84590; 84630; 85027; 85610; 85730; 99211

== ENCOUNTER → 2018-09-18 | Outpatient (CLI) | payer BC ==
--- NOTE | 2018-09-18 14:34 | CT ---
EXAMINATION TYPE: CT abdomen pelvis w con DATE OF EXAM: 09/18/2018 COMPARISON: 02/13/2017 INDICATION: Abdominal pain, possible SBO, abnormal BM DLP: 577.2 mGycm, Automated exposure control for dose reduction was used. CONTRAST: 100 mL of Isovue 300. Study performed with Oral Contrast TECHNIQUE: Axial images were obtained from above the diaphragm to the pubic rami in the axial plane a t 5 mm thick sections. Reconstructed images are reviewed on the computer in the coronal plane. FINDINGS: Limited CT sections are obtained the lung bases. The lung bases are clear. CT ABDOMEN: Liver: Normal Spleen: Normal Pancreas: Normal Adrenal glands: The adrenal glands are normal. Gallbladder: Surgically absent Kidneys: No masses are evident. No hydronephrosis is present. No cysts are present. Delayed images were obtained through the kidneys, which remain unremarkable. Aorta: Normal Inferior vena cava: Normal. CT PELVIS: Loops of bowel within the abdomen and pelvis are normal. There are loops of bowel which are incom pletely distended or lack oral contrast limiting their evaluation. No suspicious dilated loops of bow el are evident. There is fecal debris within the colon. Oral contrast extends to the cecum. Appendix: Not visualized. This may be surgically absent. Correlate with the history. Urinary bladder: Normal. Genitourinary structures: Uterus is absent. Ovaries are not visualized. Osseous structures: No suspicious lytic or sclerotic lesions. Sacroiliac joints have degenerative manny nge. IMPRESSIONS: 1. No suspicious changes to suggest small bowel obstruction. 2. Mild fecal retention.
== END | disposition home or self-care (01) ==
LOC: RADCTMAIN 09:46
PROVIDERS: ATTEND Surgery Plastic and Reconstructive Surgery
DX: K56.609 Unspecified intestinal obstruction, unspecified as to partial versus complete obstruction (principal); Z88.6 Allergy status to analgesic agent
CPT/HCPCS: 74177; Q9967

== ENCOUNTER 2018-09-23 06:33 | Day surgery (SDC) | payer BC ==
[2018-09-19 11:25] VITALS: BMI 22.8
--- NOTE | 2018-09-23 06:03 | P.GSHP ---
History of Present Illness H&P Date: 09/23/18 DATE OF SERVICE: 09/23/2018 CHIEF COMPLAINT: Gastric ulcer HISTORY OF PRESENT ILLNESS: The patient is a 48-year-old female who comes in with abdominal pain and history of gastric stricture. She reports dysphagia. She presents for an upper endoscopy. PAST MEDICAL HISTORY: 1. See list PAST SURGICAL HISTORY: 1. See list HOME MEDICATIONS: 1. See list ALLERGIES: 1. See list SOCIAL HISTORY: 1. See list FAMILY HISTORY: No family history of ulcerative colitis disease or Crohn's disease. Family history of morbid obesity. REVIEW OF ORGAN SYSTEMS: HEENT: Denies any active troubles with vision or hearing. No troubles with swallowing. ENDOCRINE: No diabetes. No hypothyroidism. CARDIOVASCULAR: No reports of palpitations or heart attacks or chest pain. PHYSICAL EXAM: VITAL SIGNS: Height 5 foot 8 inches, weight 150 pounds. BMI 22.8 GENERAL: Well-developed in no acute distress. HEENT: No scleral icterus. Extraocular movements grossly intact. Hears conversational speech. No nasal drainage. NECK: Supple without lymphadenopathy. CHEST: Nonlabored respirations with equal bilateral excursions. CARDIOVASCULAR: Regular rate and regular rhythm. Distal 2+ pulses. ABDOMEN: Obese, soft, tender at epigastrium, nondistended. MUSCULOSKELETAL: No clubbing, cyanosis. Gross strength 5/5 distal lower extremities. NEURO: No focal or lateralizing signs. Cranial nerves 2 through 12 grossly within normal limits. PSYCH: Appropriate affect. Alert and oriented to person, place and time. SKIN: Good skin turgor. Well perfused. ASSESSMENT: 1. History of gastrojejunal stricture. PLAN: 1. I have also recommended an upper endoscopy with balloon dilation. She had been started on Omeprazole for history of gastrojejunal strictures and ulcer. She is high risk for perforation for untreated ulcer disease. Past Medical History Past Medical History: GERD/Reflux, Osteoarthritis (OA) Additional Past Medical History / Comment(s): , migraines History of Any Multi-Drug Resistant Organisms: None Reported Past Surgical History: Bariatric Surgery, Section, Hernia Repair, Hysterectomy, Tonsillectomy, Tubal Ligation Additional Past Surgical History / Comment(s): LAP BAND SURGERY x 2, LAP BAND REMOVAL x 2, tubal reversal, lap mateo-en-y with EGD and repair hiatal hernia with mesh 09/11/2016 Past Anesthesia/Blood Transfusion Reactions: No Reported Reaction Smoking Status: Former smoker - Past Family History Mother Family Medical History: Deep Vein Thrombosis (DVT) Sister(s) Family Medical History: Deep Vein Thrombosis (DVT) Father Family Medical History: Deep Vein Thrombosis (DVT) Medications and Allergies Home Medications Medication Instructions Recorded Confirmed Type Estradiol [Estrace] 2 mg PO DAILY 07/05/16 09/19/18 History Fluticasone Nasal [place] [Flonase 1 spr EA NOSTRIL DAILY 08/09/16 09/19/18 History Nasal [place]] Biotin 5 mg PO DAILY 11/29/16 09/19/18 History Calcium Citrate 250 mg PO DAILY 11/29/16 09/19/18 History Cholecalciferol [Vitamin D3] 1,000 unit PO DAILY 11/29/16 09/19/18 History Cyanocobalamin (Vitamin B-12) 1,000 mcg PO DAILY 11/29/16 09/19/18 History [Vitamin B-12] Magnesium 200 mg PO DAILY 11/29/16 09/19/18 History Multivitamins, Thera [Multivitamin 1 tab PO DAILY 11/29/16 09/19/18 History (formulary)] Omeprazole 40 mg PO DAILY 09/19/18 09/19/18 History Allergies Allergy/AdvReac Type Severity Reaction Status Date / Time aspirin AdvReac bloody nose Verified 09/19/18 11:19 NSAIDS (Non-Steroidal AdvReac GI Upset Verified 09/19/18 11:19 Anti-Inflamma
[~2018-09-23 06:33] MED LIST changes: -ACETAMINOPHEN IV (For NPO) 1,000 MG in EMPTY BAG 1 BAG IVPB ONE; -DEXAMETHASONE SOD PHOSPHATE 10 MG/ML 1 ML VIAL IV ONE; -HEPARIN SODIUM,PORCINE 5,000 UNIT/ML 1 ML VIAL SQ ONE; +LACTATED RINGERS 1,000 ML IV SCH; +LIDOCAINE 1% 20 ML VIAL (10MG/ML) FOR IV START INTRADERMA PRN; -ONDANSETRON 4 MG/2 ML VIAL IVP ONE; -Pre Op ABX Message 1 EACH MISC MISCELLANE ONE; -ceFAZolin 2 GM in SODIUM CHLORIDE 0.9% 100 ML IVPB ONE
[2018-09-23 06:48] VITALS: RESP 18; TEMP 97.6
[2018-09-23] MEDS ORDERED: LACTATED RINGERS 1,000 ML IV ONE (06:54)
[2018-09-23] MEDS ORDERED: PROPOFOL 10 MG/ML 20 ML VIAL IV ONE (07:04)
[2018-09-23] MEDS ORDERED: fentaNYL (PF) 50 MCG/ML 2 ML AMP ONE (07:04)
[2018-09-23] MEDS ORDERED: LIDOCAINE 1% INJ 10MG/ML (20 ML MDV) ONE (07:04)
--- NOTE | 2018-09-23 07:27 | P.PCN ---
Date of Procedure: 09/23/18 Description of Procedure: PREOPERATIVE DIAGNOSIS: Dysphagia. Epigastric abdominal pain History of gastrojejunal stricture POSTOPERATIVE DIAGNOSIS: Dysphagia. Epigastric abdominal pain Gastrojejunal stricture without ulcer without perforation OPERATION: Esophagogastrojejunoscopy with balloon dilatation, 20 mm. SURGEON: Kayleigh Workman MD ANESTHESIA: MAC. INDICATIONS: The patient is a 48-year-old female who presents with a history of dysphagia and gastrojejunal stricture. Benefits and risks of the procedure were described. Informed consent was obtained. DESCRIPTION: The patient was brought into the endoscopy suite and laid in the left lateral decubitus position. After a timeout was confirmed, the procedure was initiated. An Olympus gastroscope was passed along the posterior oropharynx down to the distal esophagus where the squamocolumnar junction was unremarkable. The gastric pouch was entered. A gastrojejunal stricture of 15 mm was found as the adult gastroscope was 9.5 mm in size. A Telnexus balloon dilator was placed through the scope. Final insufflation up to 20 mm was performed with a total of 2 minutes. The scope was advanced up to 50 cm from the incisors into the Mariya limb. The mucosa of the gastrojejunal anastomosis was intact. No gastrojejunal marginal ulcer was encountered. No full-thickness injury was encountered. The GI tract was desufflated. The patient tolerated the procedure well. FINDINGS: Stricture of approximately 15 mm encountered. NO chronic gastrojejunal ulceration encountered. Successful balloon dilatation to 20 mm. Gastric pouch 4 cm. RECOMMENDATIONS: Upper endoscopy as needed Plan - Discharge Summary Discharge Rx Participant: No New Discharge Prescriptions: No Action Estradiol [Estrace] 2 mg PO DAILY Fluticasone Nasal [place] [Flonase Nasal [place]] 1 spr EA NOSTRIL DAILY Cholecalciferol [Vitamin D3] 1,000 unit PO DAILY Multivitamins, Thera [Multivitamin (formulary)] 1 tab PO DAILY Magnesium 200 mg PO DAILY Cyanocobalamin (Vitamin B-12) [Vitamin B-12] 1,000 mcg PO DAILY Calcium Citrate 250 mg PO DAILY Biotin 5 mg PO DAILY Omeprazole 40 mg PO DAILY Discharge Medication List Estradiol [Estrace] 2 mg PO DAILY 07/05/16 [History] Fluticasone Nasal [place] [Flonase Nasal [place]] 1 spr EA NOSTRIL DAILY 08/09/16 [ History] Biotin 5 mg PO DAILY 05/10/17 [History] Calcium Citrate 250 mg PO DAILY 11/29/16 [History] Cholecalciferol [Vitamin D3] 1,000 unit PO DAILY 11/29/16 [History] Cyanocobalamin (Vitamin B-12) [Vitamin B-12] 1,000 mcg PO DAILY 11/29/16 [ History] Magnesium 200 mg PO DAILY 11/29/16 [History] Multivitamins, Thera [Multivitamin (formulary)] 1 tab PO DAILY 11/29/16 [History ] Omeprazole 40 mg PO DAILY 09/19/18 [History] Follow up Appointment(s)/Referral(s): [facility] [[facility]-STAFF] - 10/09/18 Patient Instructions/Handouts: Esophageal Dilation (DC) Activity/Diet/Wound Care/Special Instructions: Regular diet today Discharge Disposition: HOME SELF-CARE
[2018-09-23 07:42] VITALS: BP 108/50; PULSE 59
== END 2018-09-23 07:54 | disposition home or self-care (01) ==
LOC: ORWHC2ENDO 06:33
PROVIDERS: ATTEND Surgery Plastic and Reconstructive Surgery
DX: K31.89 Other diseases of stomach and duodenum (principal); K21.9 Gastro-esophageal reflux disease without esophagitis; M19.90 Unspecified osteoarthritis, unspecified site; G43.909 Migraine, unspecified, not intractable, without status migrainosus; Z87.891 Personal history of nicotine dependence; Z79.890 Hormone replacement therapy; Z79.899 Other long term (current) drug therapy; Z88.6 Allergy status to analgesic agent; Z87.11 Personal history of peptic ulcer disease; Z98.84 Bariatric surgery status
CPT/HCPCS: 43245; J2001; J3010; J2704; C1726; 43249

== ENCOUNTER → 2018-10-09 | Outpatient (CLI) | payer BC ==
[2018-10-09 12:52] VITALS: BP 110/59; PULSE 78; TEMP 98.4; BMI 23.7
--- NOTE | 2018-10-09 13:29 | P.PN ---
Subjective Progress Note Date: 10/09/18 HPI: She reports resolution of her epigastric pain and dysphagia. Has worsening pressure ball like pain along the right upper and left upper quadrant. She reports increased abdominal distention. ABDOMEN: Soft STUDIES: CT images reviewed. PLAN: 1. Right upper abdominal 2. Bilateral inguinal pain 3. History of peritoneal adhesions. ASSESSMENT: 1. Robotic bilateral inguinal repair with mesh repair. 2. Increased fiber intake 3. Miralax for constipation 4. Due for bariatric labs 5. Nystatin powder for panniculitis. Objective - Vital Signs Vital signs: Vital Signs Temp 98.4 F 10/09/18 12:47 Pulse 78 10/09/18 12:47 Resp BP 110/59 10/09/18 12:47 Pulse Ox Intake & Output 10/08/18 10/09/18 10/09/18 18:59 06:59 18:59 Weight 70.307 kg
== END ==
LOC: BARWHC3 12:38
PROVIDERS: ATTEND Surgery Plastic and Reconstructive Surgery
DX: R10.11 Right upper quadrant pain (principal); R10.12 Left upper quadrant pain; R14.0 Abdominal distension (gaseous); Z79.899 Other long term (current) drug therapy
CPT/HCPCS: 99211

== ENCOUNTER → 2018-10-10 | Outpatient (CLI) | payer BC ==
[2018-10-10 11:53] LABS: HCT 40.7 % (34.0-46.0); HGB 12.9 gm/dL (11.4-16.0); MCH 28.8 pg (25.0-35.0); MCHC 31.7 g/dL (31.0-37.0); MCV 90.7 fL (80.0-100.0); Mean Platelet Volume 7.7; Platelet Count 227 k/uL (150-450); RBC 4.49 m/uL (3.80-5.40); RDW 12.4 % (11.5-15.5); WBC 3.9 k/uL (3.8-10.6)
[2018-10-10 11:54] LABS: INR 0.9 (<1.2); Partial Thromboplastin Time 23.9 sec (22.0-30.0); Prothrombin Time 10.1 sec (9.0-12.0)
[2018-10-10 18:56] LABS: Iron Saturation 12.59 (12.00-45.00)
[2018-10-10 19:02] LABS: Albumin 4.3 g/dL (3.80-4.90); Albumin/Globulin Ratio 1.95 (1.60-3.17); Anion Gap 6.6 mmol/L (4.00-12.00); Calcium 9.3 mg/dL (8.7-10.3); Carbon Dioxide 29.4 mmol/L (21.6-31.8); Globulin 2.2 g/dL (1.6-3.3); LDL Cholesterol,Calculated 52.6 mg/dL (0.0-131.0); Magnesium 2.1 mg/dL (1.5-2.4); Phosphorus 3.8 mg/dL (2.4-5.1); Potassium 4.1 mmol/L (3.5-5.5); Total Bilirubin 0.4 mg/dL (0.3-1.2); Total Protein 6.5 g/dL (6.2-8.2); VLDL Calculation 13.4 mg/dL (5.00-40.00)
[2018-10-10 19:04] LABS: Vitamin D 25 Hydroxy 31.1 ng/mL (30.0-100.0)
[2018-10-10 21:17] LABS: Parathyroid Hormone Intact 64.3 pg/mL (14.0-72.0)
[2018-10-10 21:52] LABS: Hemoglobin A1C 5.1 % (4.0-6.0)
[2018-10-11 11:58] LABS: Zinc, Serum 90 ug/dL (60-130)
== END | disposition home or self-care (01) ==
LOC: LABWHC1 10:49
PROVIDERS: ATTEND Surgery Plastic and Reconstructive Surgery
DX: E66.01 Morbid (severe) obesity due to excess calories (principal); E21.1 Secondary hyperparathyroidism, not elsewhere classified; E89.1 Postprocedural hypoinsulinemia; D50.9 Iron deficiency anemia, unspecified; K90.9 Intestinal malabsorption, unspecified; E55.9 Vitamin D deficiency, unspecified; K74.1 Hepatic sclerosis; N19 Unspecified kidney failure; K50.90 Crohn's disease, unspecified, without complications
CPT/HCPCS: 36415; 80053; 80061; 82306; 82525; 82607; 82728; 82746; 83036; 83540; 83550; 83735; 83970; 84100; 84134; 84255; 84425; 84443; 84590; 84630; 85027; 85610; 85730

== ENCOUNTER 2018-11-28 11:59 | Day surgery (SDC) | payer BC ==
[2018-11-26 16:05] VITALS: BMI 22.8
[~2018-11-28 11:59] MED LIST changes: +DEXAMETHASONE SOD PHOSPHATE 10 MG/ML 1 ML VIAL IV ONE; +HEPARIN SODIUM,PORCINE 5,000 UNIT/ML 1 ML VIAL SQ ONE; +MIDAZOLAM (PF) 2 MG/2 ML VIAL IV PRN; +ONDANSETRON 4 MG/2 ML VIAL IVP ONE; +SCOPOLAMINE 1.5MG/72HR PATCH TRANSDERM ONE; +ceFAZolin IN SWFI 2 GM/20 ML SYRINGE IVP ONE
--- NOTE | 2018-11-28 12:48 | P.GSHP ---
History of Present Illness H&P Date: 11/28/18 CHIEF COMPLAINT: Inguinal hernia, bilateral HISTORY OF PRESENT ILLNESS: The patient is a 48-year-old female who presents with a history of swelling and pain along the groins. She has noted increased swelling including pain of the area. Now he presents for repair of her inguinal hernia. PAST MEDICAL HISTORY: Please see list. PAST SURGICAL HISTORY: Please see list. MEDICATIONS: Please see list. ALLERGIES: Please see list. SOCIAL HISTORY: No illicit drug use FAMILY HISTORY: No reports of Crohn disease or ulcerative colitis. REVIEW OF ORGAN SYSTEMS: CONSTITUTIONAL: No reports of fevers or chills. No reports of weight loss despite prior attempts. GI: Denies any blood in stools or constipation. PHYSICAL EXAM: VITAL SIGNS: Stable GENERAL: Well-developed pleasant male in no acute distress. HEENT: No scleral icterus. Extraocular movements grossly intact. Moist buccal mucosa. NECK: Supple without lymphadenopathy. CHEST: Unlabored respirations. Equal bilateral excursions. CARDIOVASCULAR: Regular rate and rhythm. Distal 2+ pulses. ABDOMEN: Soft, nondistended. No peritoneal signs. Palpable defect of the groin MUSCULOSKELETAL: No clubbing, cyanosis, or edema. ASSESSMENT: 1. Inguinal hernia, bilateral PLAN: 1. Recommend proceeding with a robotic inguinal repair with mesh with bilateral approach. 2. Benefits and risks of surgical intervention was discussed including possibility of open technique. 3. DVT prophylaxis. 4. Antibiotic prophylaxis. Past Medical History Past Medical History: Osteoarthritis (OA) Additional Past Medical History / Comment(s): Hx hiatal hernia, migraines, constipation, gout, History of Any Multi-Drug Resistant Organisms: None Reported Past Surgical History: Bariatric Surgery, Section, Cholecystectomy, Hernia Repair, Hysterectomy, Tonsillectomy, Tubal Ligation Additional Past Surgical History / Comment(s): LAP BAND SURGERY x 2, LAP BAND REMOVAL x 2, tubal reversal, lap mateo-en-y with EGD and repair hiatal hernia with mesh 09/11/2016 Past Anesthesia/Blood Transfusion Reactions: No Reported Reaction Smoking Status: Former smoker - Past Family History Mother Family Medical History: Deep Vein Thrombosis (DVT) Sister(s) Family Medical History: Deep Vein Thrombosis (DVT) Father Family Medical History: Deep Vein Thrombosis (DVT) Brother(s) Family Medical History: Deep Vein Thrombosis (DVT) Medications and Allergies Home Medications Medication Instructions Recorded Confirmed Type Estradiol [Estrace] 2 mg PO DAILY 07/05/16 11/28/18 History Fluticasone Nasal [place] [Flonase 1 spr EA NOSTRIL DAILY 08/09/16 11/28/18 History Nasal [place]] Biotin 5 mg PO DAILY 11/29/16 11/28/18 History Calcium Citrate 250 mg PO DAILY 11/29/16 11/28/18 History Cholecalciferol [Vitamin D3] 1,000 unit PO DAILY 11/29/16 11/28/18 History Cyanocobalamin (Vitamin B-12) 1,000 mcg PO DAILY 11/29/16 11/28/18 History [Vitamin B-12] Magnesium 200 mg PO DAILY 11/29/16 11/28/18 History Multivitamins, Thera [Multivitamin 1 tab PO DAILY 11/29/16 11/26/18 History (formulary)] Nystatin 100,000 Unit/gm Powd 1 applic TOPICAL BID #60 gm 10/09/18 11/28/18 Rx [Mycostatin Powder] Polyethylene Glycol 3350 [Miralax] 17 gm PO DAILY PRN 11/26/18 11/28/18 History Allergies Allergy/AdvReac Type Severity Reaction Status Date / Time aspirin AdvReac bloody nose Verified 11/26/18 15:55 NSAIDS (Non-Steroidal AdvReac GI Upset Verified 11/26/18 15:55 Anti-Inflamma Surgical - Exam Vital Signs Temp Pulse Resp BP Pulse Ox 98.1 F 62 16 109/53 99 11/28/18 12:28 11/28/18 12:28 11/28/18 12:28 11/28/18 12:28 11/28/18 12:28
[2018-11-28] MEDS ORDERED: fentaNYL (PF) 50 MCG/ML 2 ML AMP IVP ONE ×3 (13:16→13:58)
[2018-11-28] MEDS ORDERED: MIDAZOLAM (PF) 2 MG/2 ML VIAL IV ONE (14:28)
--- NOTE | 2018-11-28 15:11 | P.ONQ ---
Anesthesiology Proc Note - PNB - Peripheral Nerve Block Performed Bilateral Transversus Abdominis Single Time Out Performed: Yes Procedure Start Time: 12:30 Procedure Stop Time: 13:00 Indication: Acute Post-Operative Pain, Analgesia, Requested by physician Sedation Type: Awake Catheter: None Needle Types: On-Q Needle Size: 50mm (2") Needle Gauge: 20 Technique: Ultrasound Injectate: 0.5% Ropivacaine (see comment for volume) (30) Resistance on Injection: Normal Events: Uneventful and Well Tolerated
[2018-11-28] MEDS ORDERED: fentaNYL (PF) 50 MCG/ML 2 ML AMP ONE (15:53)
[2018-11-28] MEDS ORDERED: ROPIVACAINE 5 MG/ML 30 ML VIAL ONE (15:53)
[2018-11-28] MEDS ORDERED: PHENYLEPHRINE-0.9% NACL SYG 1 MG/10 ML SYRINGE ONE (15:53)
[2018-11-28] MEDS ORDERED: MIDAZOLAM 2 MG/2 ML VIAL ONE (15:53)
[2018-11-28] MEDS ORDERED: GLYCOPYRROLATE 0.2 MG/ML 2 ML VIAL ONE (15:53)
[2018-11-28] MEDS ORDERED: NEOSTIGMINE 1 MG/ML 10 ML VIAL ONE (15:53)
[2018-11-28] MEDS ORDERED: LIDOCAINE 1% INJ 10MG/ML (20 ML MDV) ONE (15:53)
[2018-11-28] MEDS ORDERED: PROPOFOL 10 MG/ML 20 ML VIAL IV ONE (15:53)
[2018-11-28] MEDS ORDERED: ROCURONIUM BROMIDE 10 MG/ML 10 ML VIAL IV ONE (15:53)
[2018-11-28] MEDS ORDERED: BUPIVACAIN-EPI 0.5%-1:200,000 30 ML VIAL SQ ONE (16:42)
[2018-11-28] MEDS ORDERED: LACTATED RINGERS 1,000 ML IV ONE ×3 (16:45→18:45)
[2018-11-28] MEDS: HYDROmorphone 0.5 MG/0.5 ML SYRINGE IVP PRN ×4 (18:15→18:52)
--- NOTE | 2018-11-28 18:18 | P.OP ---
Date of Procedure: 11/28/18 Description of Procedure: SURGEON: KAYLEIGH WORKMAN MD PREOPERATIVE DIAGNOSES: 1. Bilateral lower abdominal pain 2. Bilateral inguinal hernia 3. Status post massive weight loss 4. History of gastric bypass 5. Bilateral upper abdominal pain POSTOPERATIVE DIAGNOSES: 1. Bilateral lower abdominal pain 2. Bilateral inguinal hernia 3. Status post massive weight loss 4. History of gastric bypass 5. Bilateral upper abdominal pain 6. Intermittent small bowel obstruction from peritoneal adhesion pelvis 7. Right upper quadrant peritoneal adhesion 8. Left upper quadrant peritoneal adhesion OPERATION: 1. Robotic-assisted da Edwige Xi laparoscopic extensive lysis of adhesions over 1 hr COMPLICATIONS: None. Anesthesia: GETA, local Estimated Blood Loss (ml): 5 Pathology: Peritoneal adhesion band Condition: stable Disposition: same day OPERATIVE FINDINGS: 1. Small bowel adhesion Mariya limb to the abdominal wall left upper quadrant without incisional hernia 2. 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 Remnant fallopian tube creating adhesion and bowel obstruction from prior hysterectomy resected 4. Multiple large mesenteric defects of sigmoid colon epiploica with risk of small bowel obstruction, more than 3 identified and divided and resected 5. Lowry defect and mesenteric defect completely obliterated and scarred 6. No evidence of internal hernia throughout entire small bowel assessment. 7. Multifocal areas of intermittent large bowel obstruction with small bowel dilation with and pelvis all reduced secondary to pelvic adhesions 8. No bilateral inguinal hernias identified 9. Double dock technique performed of upper abdomen and lower pelvis using 3 arms INDICATIONS: The patient is a 48-year-old female who presents Informed consent was obtained. Robotic assisted laparoscopic approach was described. Benefits and risks of the procedure including but not limited to bleeding, infection, injury to the small bowel was described. Informed consent was obtained. DESCRIPTION OF PROCEDURE: Patient was brought to the operating room, placed in supine position. After general induction, the abdomen had been prepped and draped in standard sterile fashion. The robotic da Edwige XI system was primed. After a timeout protocol was performed, the patient had been prepped and draped in standard sterile fashion. The robot was docked along the right lateral abdomen. The patient was repositioned in reverse Trendelenburg position of 14- degrees. A 5 mm 0 degrees laparoscopic trocar entry was performed along the left upper quadrant. The abdomen was insufflated to 15 mmHg pressure which he tolerated well. Diagnostic laparoscopy demonstrated severe intra-abdominal adhesions involving the midline at the umbilicus and bilateral inguinal are. The small bowel was unremarkable without evidence of dilation or suggestion of obstruction. No injury to the bowel, viscera or mesentery was identified. Next, three 8 mm robotic ports were placed along the upper abdomen. The camera 8-mm port was initially docked along the epigastrium. Please note that the ports were placed at least 8 cm away from the target anatomy. Instruments were interchanged using only 3 ports for a grasper, vessel sealer, and scissors with cautery. Instruments were interchanged by the human resources executive assistant including Bovie cautery scissors. I had sat at the console. The camera was positioned along the epigastrium. Extensive lysis of adhesions over 1 hour was performed. Carefully the adhesions were taken down without injury to the small bowel using vessel sealer and cautery on scissors. Severe adhesions along the umbilicus was also confirmed as the patient's location of pain without a recurrent hernia. No bladder diverticulum or bladder hernia was found after all adhesions were lysed. No involvement of small bowel was found. Hemostasis was excellent and abdomen was dry upon completion. Completion lysis of adhesions confirmed no recurrent inguinal or umbilical hernias. The robot was undocked. All pneumoperitoneum and instruments were evacuated from the abdominal cavity. The incisions were reapproximated using 4-0 Monocryl in an interrupted subcuticular fashion. Please note along the trocar sites, local anesthetic was placed as a field block prior to insertion of all instruments. Liquid glue was applied to the skin. At the end of the procedure needle, sponge, and instrument count had been verified correct by the certified surgical tech/first assistant. The patient was transferred to postanesthesia care unit in stable condition. Intraoperative images including findings were described to the patients family. Console time 66 minutes Plan - Discharge Summary Discharge Rx Participant: Yes New Discharge Prescriptions: New HYDROcodone/APAP 5-325MG [[place] 5-325] 1 tab PO Q4HR PRN 3 Days #18 tab PRN Reason: Pain Ondansetron Odt [Zofran ODT] 4 mg PO Q8HR PRN #5 tab PRN Reason: Nausea No Action Estradiol [Estrace] 2 mg PO DAILY Fluticasone Nasal [place] [Flonase Nasal [place]] 1 spr EA NOSTRIL DAILY Cholecalciferol [Vitamin D3] 1,000 unit PO DAILY Multivitamins, Thera [Multivitamin (formulary)] 1 tab PO DAILY Magnesium 200 mg PO DAILY Cyanocobalamin (Vitamin B-12) [Vitamin B-12] 1,000 mcg PO DAILY Calcium Citrate 250 mg PO DAILY Biotin 5 mg PO DAILY Nystatin 100,000 Unit/gm Powd [Mycostatin Powder] 1 applic TOPICAL BID #60 gm Polyethylene Glycol 3350 [Miralax] 17 gm PO DAILY PRN PRN Reason: Constipation Discharge Medication List Estradiol [Estrace] 2 mg PO DAILY 07/05/16 [History] Fluticasone Nasal [place] [Flonase Nasal [place]] 1 spr EA NOSTRIL DAILY 08/09/16 [History] Biotin 5 mg PO DAILY 11/29/16 [History] Calcium Citrate 250 mg PO DAILY 11/29/16 [History] Cholecalciferol [Vitamin D3] 1,000 unit PO DAILY 11/29/16 [History] Cyanocobalamin (Vitamin B-12) [Vitamin B-12] 1,000 mcg PO DAILY 11/29/16 [History] Magnesium 200 mg PO DAILY 11/29/16 [History] Multivitamins, Thera [Multivitamin (formulary)] 1 tab PO DAILY 11/29/16 [History] Nystatin 100,000 Unit/gm Powd [Mycostatin Powder] 1 applic TOPICAL BID #60 gm 10/09/18 [Rx] Polyethylene Glycol 3350 [Miralax] 17 gm PO DAILY PRN 11/26/18 [History] HYDROcodone/APAP 5-325MG [[place] 5-325] 1 tab PO Q4HR PRN 3 Days #18 tab 11/28/18 [Rx] Ondansetron Odt [Zofran ODT] 4 mg PO Q8HR PRN #5 tab 11/28/18 [Rx] Follow up Appointment(s)/Referral(s): Kayleigh Workman MD [STAFF PHYSICIAN] - 12/18/18 Patient Instructions/Handouts: Lysis of Abdominal Adhesions (DC) Activity/Diet/Wound Care/Special Instructions: May shower. No bathtub soaks. Recommend liquid diet for next 3 days to minimize nausea and vomiting. Discharge Disposition: HOME SELF-CARE
--- NOTE | 2018-11-28 20:41 | P.PN ---
Progress Note - Text Progress Note Date: 11/28/18 To Whom It May Concern: Lacey Fuentes is under my general surgical care. She had abdominal surgery. She may not return to work until December 09 without restrictions. Regards, Kayleigh Workman MD
[2018-11-28 20:42] VITALS: RESP 18; TEMP 97.7
[2018-11-28 20:50] VITALS: BP 114/73; PULSE 60
== END 2018-11-28 20:50 | disposition home or self-care (01) ==
LOC: OR 11:59 → 6PED 18:06 → OR 20:50
PROVIDERS: ATTEND Surgery Plastic and Reconstructive Surgery
DX: K56.50 Intestinal adhesions [bands], unspecified as to partial versus complete obstruction (principal); M10.9 Gout, unspecified; M19.90 Unspecified osteoarthritis, unspecified site; Z87.891 Personal history of nicotine dependence; Z88.6 Allergy status to analgesic agent; Z90.49 Acquired absence of other specified parts of digestive tract; Z98.84 Bariatric surgery status; Z79.51 Long term (current) use of inhaled steroids; Z79.899 Other long term (current) drug therapy; Z79.890 Hormone replacement therapy
CPT/HCPCS: 64486; 44180; J2250 ×2; J1644; J1100; J2710; J2405; J2001; J3010; J2795; J2370; J2704; J1170; 88305

== ENCOUNTER → 2018-12-10 | Outpatient (CLI) | payer BC ==
[~2018-12-10] MED LIST changes: +DEXAMETHASONE SOD PHOSPHATE 10 MG/ML 1 ML VIAL IM STA; -DEXAMETHASONE SOD PHOSPHATE 10 MG/ML 1 ML VIAL IV ONE; -HEPARIN SODIUM,PORCINE 5,000 UNIT/ML 1 ML VIAL SQ ONE; -LACTATED RINGERS 1,000 ML IV SCH; -LIDOCAINE 1% 20 ML VIAL (10MG/ML) FOR IV START INTRADERMA PRN; -MIDAZOLAM (PF) 2 MG/2 ML VIAL IV PRN; -ONDANSETRON 4 MG/2 ML VIAL IVP ONE; -SCOPOLAMINE 1.5MG/72HR PATCH TRANSDERM ONE; -ceFAZolin IN SWFI 2 GM/20 ML SYRINGE IVP ONE
[2018-12-10 10:32] VITALS: BP 130/71; PULSE 68; RESP 16; TEMP 98.4
== END | disposition home or self-care (01) ==
LOC: PROCWHC3 10:11
PROVIDERS: ATTEND Surgery Plastic and Reconstructive Surgery
DX: T88.7XXA Unspecified adverse effect of drug or medicament, initial encounter (principal); T50.905A Adverse effect of unspecified drugs, medicaments and biological substances, initial encounter
CPT/HCPCS: 96372; J1100

== ENCOUNTER → 2019-01-07 | Outpatient (CLI) | payer BC ==
--- NOTE | 2019-01-07 11:39 | US ---
EXAMINATION TYPE: US kidneys/renal and bladder DATE OF EXAM: 01/07/2019 COMPARISON: CT September 18, 2018 CLINICAL HISTORY: R10.9 right flank pain. Symptoms x 1 year. EXAM MEASUREMENTS: Right Kidney: 11.1 x 6.7 x 4.4 cm Left Kidney: 10.9 x 5.8 x 4.1 cm Post Void Residual Volume: 18.2 mL Right Kidney: No hydronephrosis or masses seen Left Kidney: No hydronephrosis or masses seen Bladder: wnl Bilateral Jets seen: yes Normal Post Void Residual: yes There is no evidence for hydronephrosis at this point in time. No nephrolithiasis is seen. The urin yon bladder is anechoic. Bilateral ureteral jets are seen. IMPRESSION: Unremarkable study.
== END | disposition home or self-care (01) ==
LOC: RADUSWWP 10:58
PROVIDERS: ATTEND Surgery Plastic and Reconstructive Surgery
DX: R10.9 Unspecified abdominal pain (principal); Z91.048 Other nonmedicinal substance allergy status
CPT/HCPCS: 76770

== ENCOUNTER → 2019-06-26 | Outpatient (CLI) | payer BC ==
--- NOTE | 2019-06-26 13:57 | MR ---
EXAMINATION TYPE: MR brain wo/w con DATE OF EXAM: 06/26/2019 COMPARISON: CT brain dated 08/09/2016 HISTORY: Memory loss, loss of taste/smell TECHNIQUE: Multiplanar, multisequence images of the brain and brainstem is performed without and with IV contras t, utilizing 7 mL intravenous Gadavist . FINDINGS: Diffusion weighted images demonstrate no evidence of a recent infarct or other diffusion ab normality. There is no extra-axial fluid collection or significant white matter signal abnormality. The ventricular system and cisternal spaces are normal in size and appearance. The brain volume is age appropriate. Midline structures demonstrate normal morphology. There is a 6 mm nonenhancing pineal gland cyst wit h slight mass effect on the superior tectum however no cerebral aqueduct narrowing is seen. The cran iocervical junction appears within normal limits. Post contrast images demonstrate no abnormal enhan cement. The dural venous sinuses appear patent. The visualized sinuses demonstrate mild mucosal thick ening of the ethmoid and maxillary sinuses. Remaining paranasal sinuses and mastoid air cells are wel l aerated. The globes are intact. IMPRESSION: 1. No acute infarct, midline shift or mass effect. 2. No abnormal intracranial enhancement. 3. Mild paranasal sinus disease. 4. Incidentally noted 6 mm nonenhancing pineal gland cyst with slight mass effect on the superior phillip yulisa. No aqueductal narrowing.
== END ==
LOC: RADMRIMAIN 11:33
PROVIDERS: ATTEND Family Medicine
DX: R41.3 Other amnesia (principal)
CPT/HCPCS: 70553; A9585

== ENCOUNTER → 2019-07-26 | Outpatient (CLI) | payer BC ==
--- NOTE | 2019-07-29 13:17 | MM ---
Reason for exam: screening (asymptomatic). Last mammogram was performed 1 year and 9 months ago. History: Patient is postmenopausal. Took estrogen for 7 years. Physical Findings: A clinical breast exam by your physician is recommended on an annual basis and results should be correlated with mammographic findings. MG 3D Screening Mammo W/Cad Bilateral CC, MLO, and XCCL view(s) were taken. Prior study comparison: October 25, 2017, mammogram. May 27, 2016, mammogram. The breast tissue is heterogeneously dense. This may lower the sensitivity of mammography. Scattered asymmetric densities are unchanged from 2018. Axillary tail lymph node left XCCL view. No significant changes when compared with prior studies. ASSESSMENT: Benign, BI-RAD 2 RECOMMENDATION: Routine screening mammogram of both breasts in 1 year.
== END | disposition home or self-care (01) ==
LOC: RADMAMWWP 09:39
PROVIDERS: ATTEND Family Medicine
DX: Z12.31 Encounter for screening mammogram for malignant neoplasm of breast (principal); Z78.0 Asymptomatic menopausal state
CPT/HCPCS: 77063; 77067

== ENCOUNTER → 2020-04-21 | Outpatient (CLI) | payer BC ==
[2020-04-21 16:20] VITALS: BP 98/60; PULSE 71; RESP 18; TEMP 98.2; BMI 24.0
--- NOTE | 2020-04-21 16:23 | P.PN ---
Subjective Progress Note Date: 04/21/20 She reports having abdominal pain. She reports vaginal bleeding when she had a hysterectomy. She has pain in the right lower quadrant pain. She reports taking antibiotics with problems. She reports some tightness of swallowing. Right lower pain for 4 weeks ago. She has a complete hysterectomy. 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 Vaginal bleeding 1. Transvaginal ultrasound 2. Upper scope and dilation 3. She has right lower quadrant pain 4. May need appendectomy Objective - Vital Signs Vital signs: Intake & Output 04/20/20 04/21/20 04/21/20 18:59 06:59 18:59 Weight 71.214 kg
== END | disposition home or self-care (01) ==
LOC: BARWHC3 15:30
PROVIDERS: ATTEND Surgery Plastic and Reconstructive Surgery
DX: R10.31 Right lower quadrant pain (principal); N93.9 Abnormal uterine and vaginal bleeding, unspecified; Z90.710 Acquired absence of both cervix and uterus
CPT/HCPCS: 99211

== ENCOUNTER → 2020-04-30 | Outpatient (CLI) | payer BC ==
--- NOTE | 2020-04-30 15:46 | US ---
EXAMINATION TYPE: US transvaginal DATE OF EXAM: 04/30/2020 COMPARISON: CT 2019 and 2017. CLINICAL HISTORY: R10.2 pelvis pain. Intermittent right pelvic pain x couple months, 3, para 3, history of partial hysterectomy 15 years ago TECHNIQUE: Transvaginal exam only per ordering physician. Date of LMP: 15 years ago EXAM MEASUREMENTS: Uterus: surgically absent Endometrial Stripe: surgically absent Right Ovary: not seen Left Ovary: not seen 1. Uterus: surgically absent 2. Endometrium: surgically absent 3. Right Ovary: not seen due to overlying bowel 4. Left Ovary: not seen due to overlying bowel 5. Bilateral Adnexa: wnl 6. Posterior cul-de-sac: wnl Uterus noted surgically absent. Some fluid and fecal prominent bowel loops in the pelvis are apprecia jonah on images saved. No free fluid. No concerning adnexal masses. IMPRESSION: As above.
[2020-04-30 16:02] LABS: HCT 39.4 % (34.0-46.0); HGB 13.1 gm/dL (11.4-16.0); MCH 31.6 pg (25.0-35.0); MCHC 33.3 g/dL (31.0-37.0); MCV 94.7 fL (80.0-100.0); Mean Platelet Volume 7.4; Platelet Count 312 k/uL (150-450); RBC 4.16 m/uL (3.80-5.40); WBC 8.5 k/uL (3.8-10.6)
[2020-04-30 16:14] LABS: Partial Thromboplastin Time 23.3 sec (22.0-30.0); Prothrombin Time 10.5 sec (9.0-12.0)
[2020-04-30 16:16] LABS: ALT 17 U/L (4-34); AST 30 U/L (14-36); African American GFR (CKD) >90 (>60 ml/min/1.73 sqM); Albumin 4.6 g/dL (3.5-5.0); Alkaline Phosphatase 72 U/L (38-126); Anion Gap 6 mmol/L; Blood Urea Nitrogen 12 mg/dL (7-17); Calcium 9.4 mg/dL (8.4-10.2); Carbon Dioxide 30 mmol/L (22-30); Chloride 104 mmol/L (98-107); Glucose 56 mg/dL (74-99); Magnesium 2.2 mg/dL (1.6-2.3); Non-African American GFR(CKD) >90 (>60 ml/min/1.73 sqM); Phosphorus 3.6 mg/dL (2.5-4.5); Potassium 3.7 mmol/L (3.5-5.1); Sodium 140 mmol/L (137-145); Total Bilirubin 0.3 mg/dL (0.2-1.3); Total Protein 7.2 g/dL (6.3-8.2)
[2020-04-30 16:27] LABS: Cholesterol 200 mg/dL (<200); HDL Cholesterol 104 mg/dL (40-60); LDL Cholesterol,Calculated 80 mg/dL (0-99); Triglycerides 80 mg/dL (<150)
[2020-05-01 02:01] LABS: Hemoglobin A1C 5.1 % (4.0-6.0)
[2020-05-01 03:27] LABS: % Iron Saturation 17.36 (12.00-45.00); Iron 63 ug/dL (50-170); Total Iron Binding Capacity 363 ug/dL (228-460)
[2020-05-01 03:36] LABS: Ferritin 22.5 ng/mL (10.0-291.0)
[2020-05-04 06:22] LABS: Zinc, Serum 67 ug/dL (60-130)
[2020-05-04 06:27] LABS: Vitamin A 61 ug/dL (38-106)
[2020-05-05 10:53] LABS: Vit B1(Thiamine) 65 ug/L (38-122)
== END | disposition home or self-care (01) ==
LOC: RADUSWWP 14:57
PROVIDERS: ATTEND Surgery Plastic and Reconstructive Surgery
DX: R10.2 Pelvic and perineal pain (principal); E66.01 Morbid (severe) obesity due to excess calories; E89.1 Postprocedural hypoinsulinemia; D50.8 Other iron deficiency anemias; K90.89 Other intestinal malabsorption; E44.0 Moderate protein-calorie malnutrition; E55.9 Vitamin D deficiency, unspecified; K74.1 Hepatic sclerosis; N19 Unspecified kidney failure; K50.90 Crohn's disease, unspecified, without complications; Z90.710 Acquired absence of both cervix and uterus
CPT/HCPCS: 36415; 76830; 80053; 80061; 82306; 82525; 82607; 82728; 82746; 83036; 83540; 83550; 83735; 83970; 84100; 84134; 84255; 84425; 84443; 84590; 84630; 85027; 85610; 85730; 93005

== ENCOUNTER 2020-05-13 07:08 | Day surgery (SDC) | payer BC ==
[2020-05-10 14:58] VITALS: BMI 22.8
[~2020-05-13 07:08] MED LIST changes: -DEXAMETHASONE SOD PHOSPHATE 10 MG/ML 1 ML VIAL IM STA; +LACTATED RINGERS 1,000 ML IV SCH
[2020-05-13 07:22] VITALS: TEMP 97.1
--- NOTE | 2020-05-13 07:41 | P.GSHP ---
History of Present Illness H&P Date: 05/13/20 CHIEF COMPLAINT: GERD HISTORY OF PRESENT ILLNESS: The patient is a 49-year-old female who presents reports gastroesophageal reflux disease. Upper endoscopy was offered for further evaluation and management. PAST MEDICAL HISTORY: Please see list. PAST SURGICAL HISTORY: Please see list. MEDICATIONS: Please see list. ALLERGIES: Please see list. SOCIAL HISTORY: No illicit drug use FAMILY HISTORY: No reports of Crohn disease or ulcerative colitis. REVIEW OF ORGAN SYSTEMS: CONSTITUTIONAL: No reports of fevers or chills. GI: Denies any blood in stools or constipation. PHYSICAL EXAM: VITAL SIGNS: Stable GENERAL: Well-developed and pleasant in no acute distress. HEENT: No scleral icterus. Extraocular movements grossly intact. Moist buccal mucosa. NECK: Supple without lymphadenopathy. CHEST: Unlabored respirations. Equal bilateral excursions. CARDIOVASCULAR: Regular rate and rhythm. Distal 2+ pulses. ABDOMEN: Soft, nondistended. MUSCULOSKELETAL: No clubbing, cyanosis, or edema. ASSESSMENT: 1. Gastroesophageal reflux disease PLAN: 1. Recommend proceeding with an upper endoscopy Past Medical History Past Medical History: Osteoarthritis (OA) Additional Past Medical History / Comment(s): Hx hiatal hernia, migraines, constipation, gout, History of Any Multi-Drug Resistant Organisms: None Reported Past Surgical History: Bariatric Surgery, Section, Cholecystectomy, Hernia Repair, Hysterectomy, Tonsillectomy, Tubal Ligation Additional Past Surgical History / Comment(s): LAP BAND SURGERY x 2, LAP BAND REMOVAL x 2, tubal reversal, lap mateo-en-y with EGD and repair hiatal hernia with mesh 09/11/2016 Past Anesthesia/Blood Transfusion Reactions: No Reported Reaction Smoking Status: Former smoker - Past Family History Mother Family Medical History: Deep Vein Thrombosis (DVT) Sister(s) Family Medical History: Deep Vein Thrombosis (DVT) Father Family Medical History: Deep Vein Thrombosis (DVT) Brother(s) Family Medical History: Deep Vein Thrombosis (DVT) Medications and Allergies Home Medications Medication Instructions Recorded Confirmed Type Fluticasone Nasal [place] [Flonase 1 spr EA NOSTRIL DAILY 08/09/16 05/10/20 History Nasal [place]] Biotin 5 mg PO DAILY 11/29/16 05/10/20 History Calcium Citrate 250 mg PO DAILY 11/29/16 05/10/20 History Cholecalciferol [Vitamin D3] 1,000 unit PO DAILY 11/29/16 05/10/20 History Cyanocobalamin (Vitamin B-12) 1,000 mcg PO DAILY 11/29/16 05/10/20 History [Vitamin B-12] Magnesium 200 mg PO DAILY 11/29/16 05/10/20 History Multivitamins, Thera [Multivitamin 1 tab PO DAILY 11/29/16 05/10/20 History (formulary)] Loratadine-Pseudoeph 5-120 mg 1 each PO Q12HR PRN #20 tab 12/10/18 05/10/20 Rx [Claritin-D 12 HR] Elderberry Fruit and Flower [Black 1 each PO DAILY 05/10/20 05/10/20 History Elderberry 575 mg Cap] SUMAtriptan SUCCINATE [Imitrex] 100 mg PO DAILY PRN 05/10/20 05/10/20 History Allergies Allergy/AdvReac Type Severity Reaction Status Date / Time Latex, Natural Rubber Allergy Rash/Hives Verified 05/13/20 07:20 aspirin AdvReac bloody nose Verified 05/13/20 07:20 NSAIDS (Non-Steroidal AdvReac GI Upset Verified 05/13/20 07:20 Anti-Inflamma Surgical - Exam Vital Signs Temp Pulse Resp BP Pulse Ox 97.1 F L 74 16 103/64 100 05/13/20 07:22 05/13/20 07:22 05/13/20 07:22 05/13/20 07:22 05/13/20 07:22
[2020-05-13] MEDS ORDERED: LIDOCAINE 1% INJ 10MG/ML (20 ML MDV) ONE (08:22)
[2020-05-13] MEDS ORDERED: PROPOFOL 10 MG/ML 20 ML VIAL IV ONE (08:22)
--- NOTE | 2020-05-13 08:38 | P.PCN ---
Date of Procedure: 05/13/20 Description of Procedure: PREOPERATIVE DIAGNOSIS: Dysphagia. Epigastric abdominal pain POSTOPERATIVE DIAGNOSIS: Dysphagia. Epigastric abdominal pain Gastrojejunal stricture without chronic ulcer without perforation OPERATION: Esophagogastrojejunoscopy with balloon dilatation from 15 to 20 mm. SURGEON: Kayleigh Workman MD ANESTHESIA: MAC. INDICATIONS: The patient is a 49-year-old female who presents with a history of dysphagia and epigastric abdominal pain. Benefits and risks of the procedure were described. Informed consent was obtained. DESCRIPTION: The patient was brought into the endoscopy suite and laid in the left lateral decubitus position. After a timeout was confirmed, the procedure was initiated. An Olympus gastroscope was passed along the posterior oropharynx down to the distal esophagus where the squamocolumnar junction was unremarkable. The gastric pouch was entered. A gastrojejunal stricture of 15 mm was found as the adult gastroscope was 9.5 mm in size. A [employer] balloon dilator was placed through the scope. Final insufflation up to 20 mm was performed with a total of 2 minutes. The scope was advanced up to 60 cm from the incisors into the Mariya limb. The mucosa of the gastrojejunal anastomosis was intact. No chronic gastrojejunal marginal ulcer was encountered. No full-thickness injury was encountered. The GI tract was desufflated. The patient tolerated the procedure well. FINDINGS: Squamocolumnar junction unremarkable Stricture of approximately 15 mm encountered. No chronic gastrojejunal ulceration encountered. Successful balloon dilatation to 20 mm. Gastric pouch 4 cm. RECOMMENDATIONS: Upper endoscopy as needed Plan - Discharge Summary Discharge Rx Participant: No New Discharge Prescriptions: Continue Fluticasone Nasal [place] [Flonase Nasal [place]] 1 spr EA NOSTRIL DAILY Cholecalciferol [Vitamin D3 (25 Mcg = 1000 Iu)] 1,000 unit PO DAILY Multivitamins, Thera [Multivitamin (formulary)] 1 tab PO DAILY Magnesium 200 mg PO DAILY Cyanocobalamin (Vitamin B-12) [Vitamin B-12] 1,000 mcg PO DAILY Calcium Citrate 250 mg PO DAILY Biotin 5 mg PO DAILY Loratadine-Pseudoeph 5-120 mg [Claritin-D 12 Hour] 1 each PO Q12HR PRN #20 tab PRN Reason: Allergic Reaction SUMAtriptan SUCCINATE [Imitrex] 100 mg PO DAILY PRN PRN Reason: migraines Elderberry Fruit and Flower [Black Elderberry 575 mg Cap] 1 each PO DAILY Discharge Medication List Fluticasone Nasal [place] [Flonase Nasal [place]] 1 spr EA NOSTRIL DAILY 08/09/16 [History] Biotin 5 mg PO DAILY 11/29/16 [History] Calcium Citrate 250 mg PO DAILY 11/29/16 [History] Cholecalciferol [Vitamin D3 (25 Mcg = 1000 Iu)] 1,000 unit PO DAILY 11/29/16 [History] Cyanocobalamin (Vitamin B-12) [Vitamin B-12] 1,000 mcg PO DAILY 11/29/16 [History] Magnesium 200 mg PO DAILY 11/29/16 [History] Multivitamins, Thera [Multivitamin (formulary)] 1 tab PO DAILY 11/29/16 [History] Loratadine-Pseudoeph 5-120 mg [Claritin-D 12 Hour] 1 each PO Q12HR PRN #20 tab 12/10/18 [Rx] Elderberry Fruit and Flower [Black Elderberry 575 mg Cap] 1 each PO DAILY 05/10/20 [History] SUMAtriptan SUCCINATE [Imitrex] 100 mg PO DAILY PRN 05/10/20 [History] Follow up Appointment(s)/Referral(s): Kayleigh Workman MD [STAFF PHYSICIAN] - 06/02/20 Patient Instructions/Handouts: Esophageal Dilation (GEN) Activity/Diet/Wound Care/Special Instructions: Diet as tolerated Discharge Disposition: HOME SELF-CARE
[2020-05-13 08:53] VITALS: BP 115/55; PULSE 71; RESP 16
== END 2020-05-13 09:07 | disposition home or self-care (01) ==
LOC: ORWHC2ENDO 07:08
PROVIDERS: ATTEND Surgery Plastic and Reconstructive Surgery
DX: K91.89 Other postprocedural complications and disorders of digestive system (principal); K21.9 Gastro-esophageal reflux disease without esophagitis; M19.90 Unspecified osteoarthritis, unspecified site; M10.9 Gout, unspecified; G43.909 Migraine, unspecified, not intractable, without status migrainosus; Z90.49 Acquired absence of other specified parts of digestive tract; Z98.891 History of uterine scar from previous surgery; Z90.710 Acquired absence of both cervix and uterus; Z98.51 Tubal ligation status; Z98.890 Other specified postprocedural states; Z82.49 Family history of ischemic heart disease and other diseases of the circulatory system; Z79.899 Other long term (current) drug therapy; Z88.6 Allergy status to analgesic agent; Z91.040 Latex allergy status
CPT/HCPCS: 43245; J2001; J2704; C1726; 43249

== ENCOUNTER → 2020-05-28 | Day surgery (SDC) | payer BC ==
[2020-05-27 10:45] VITALS: BMI 23.6
[~2020-05-28] MED LIST changes: +ACETAMINOPHEN TAB 500 MG TAB PO STA; +DEXAMETHASONE SOD PHOSPHATE 10 MG/ML 1 ML VIAL IV ONE; +DEXAMETHASONE SOD PHOSPHATE 10 MG/ML 1 ML VIAL ONE; +GABAPENTIN 300 MG CAP PO STA; +GLYCOPYRROLATE 0.2 MG/ML 2 ML VIAL ONE; +LACTATED RINGERS 1,000 ML IV ONE; +LIDOCAINE 1% INJ 10MG/ML (20 ML MDV) ONE; +LIDOCAINE 1%-EPI 1:100,000 20 ML VIAL SQ ONE; +MIDAZOLAM 2 MG/2 ML VIAL IV ONE; +NEOSTIGMINE 1 MG/ML 10 ML VIAL ONE; +ONDANSETRON 4 MG/2 ML VIAL IVP ONE; +PROPOFOL 10 MG/ML 20 ML VIAL IV ONE; +ROCURONIUM 10 MG/ML (10 ML VIAL) IV ONE; +SCOPOLAMINE 1.5MG/72HR PATCH TRANSDERM STA; +SUCCINYLCHOLINE CHLORIDE 100 MG/5 ML SYR IV ONE; +diphenhydrAMINE 50 MG/ML 1 ML VIAL ONE; +fentaNYL (PF) 50 MCG/ML 2 ML AMP ONE; +metroNIDAZOLE-NS PMX 500 MG in SALINE 1 100ML.BAG IVPB ONE
--- NOTE | 2020-05-28 02:43 | P.GSHP ---
History of Present Illness H&P Date: 05/28/20 CHIEF COMPLAINT: History of intra-abdominal adhesions HISTORY OF PRESENT ILLNESS: The patient is a 49-year-old female who presents with history of intra-abdominal adhesions from multiple prior surgeries including increasing abdominal pain. She reports right lower quadrant abdominal pain at her appendix. She now presents for diagnostic laparoscopy including lysis of adhesions and appendectomy. PAST MEDICAL HISTORY: Please see list. PAST SURGICAL HISTORY: Please see list. MEDICATIONS: Please see list. ALLERGIES: Please see list. SOCIAL HISTORY: No illicit drug use FAMILY HISTORY: No reports of Crohn disease or ulcerative colitis. REVIEW OF ORGAN SYSTEMS: CONSTITUTIONAL: No reports of fevers or chills. GI: Denies any blood in stools or constipation. PHYSICAL EXAM: VITAL SIGNS: Stable GENERAL: Well-developed pleasant and in no acute distress. HEENT: No scleral icterus. Extraocular movements grossly intact. Moist buccal mucosa. NECK: Supple without lymphadenopathy. CHEST: Unlabored respirations. Equal bilateral excursions. CARDIOVASCULAR: Regular rate and rhythm. Distal 2+ pulses. ABDOMEN: Soft, right lower quadrant pain. No peritonitis. MUSCULOSKELETAL: No clubbing, cyanosis, or edema. ASSESSMENT: 1. Right lower abdominal pain. 2. History of multiple abdominal surgeries. 3. Intra-abdominal adhesions. PLAN: 1. Robotic lysis of adhesions with appendectomy were described in detail including risk of injury to the intestine, need for further surgery, and open technique. 2. DVT prophylaxis. 3. Antibiotic prophylaxis. Past Medical History Past Medical History: Osteoarthritis (OA) Additional Past Medical History / Comment(s): Hx hiatal hernia, migraines, constipation, gout, History of Any Multi-Drug Resistant Organisms: None Reported Past Surgical History: Bariatric Surgery, Section, Cholecystectomy, Hernia Repair, Hysterectomy, Tonsillectomy, Tubal Ligation Additional Past Surgical History / Comment(s): LAP BAND SURGERY x 2, LAP BAND REMOVAL x 2, tubal reversal, lap mateo-en-y with EGD and repair hiatal hernia with mesh 09/11/2016 Past Anesthesia/Blood Transfusion Reactions: No Reported Reaction Smoking Status: Former smoker - Past Family History Mother Family Medical History: Deep Vein Thrombosis (DVT) Sister(s) Family Medical History: Deep Vein Thrombosis (DVT) Father Family Medical History: Deep Vein Thrombosis (DVT) Brother(s) Family Medical History: Deep Vein Thrombosis (DVT) Medications and Allergies Home Medications Medication Instructions Recorded Confirmed Type Fluticasone Nasal [place] [Flonase 1 spr EA NOSTRIL DAILY 08/09/16 05/27/20 History Nasal [place]] Biotin 5 mg PO DAILY 11/29/16 05/27/20 History Calcium Citrate 250 mg PO DAILY 11/29/16 05/27/20 History Cholecalciferol [Vitamin D3 (25 1,000 unit PO DAILY 11/29/16 05/27/20 History Mcg = 1000 Iu)] Cyanocobalamin (Vitamin B-12) 1,000 mcg PO DAILY 11/29/16 05/27/20 History [Vitamin B-12] Magnesium 200 mg PO DAILY 11/29/16 05/27/20 History Multivitamins, Thera [Multivitamin 1 tab PO DAILY 11/29/16 05/27/20 History (formulary)] Elderberry Fruit and Flower [Black 1 each PO DAILY 05/10/20 05/27/20 History Elderberry 575 mg Cap] SUMAtriptan SUCCINATE [Imitrex] 100 mg PO DAILY PRN 05/10/20 05/27/20 History Allergies Allergy/AdvReac Type Severity Reaction Status Date / Time Latex, Natural Rubber Allergy Rash/Hives Verified 05/27/20 10:05 aspirin AdvReac bloody nose Verified 05/27/20 10:05 NSAIDS (Non-Steroidal AdvReac GI Upset Verified 05/27/20 10:05 Anti-Inflamma
[2020-05-28 11:15] VITALS: TEMP 98.2
--- NOTE | 2020-05-28 11:37 | P.OP ---
Date of Procedure: 05/28/20 Description of Procedure: SURGEON: EDITH HOWE MD Preoperative Diagnosis: 1. Right lower quadrant abdominal pain 2. Right upper quadrant abdominal pain 3. History of peritoneal adhesions 4. Right inguinal hernia 5. History of multiple abdominal surgeries Postoperative Diagnosis: 1. Chronic appendicitis 2. Right upper quadrant abdominal pain with peritoneal adhesions 3. Right inguinal hernia, indirect 5. History of multiple abdominal surgeries Procedure(s) Performed: 1. Robotic-assisted daVinci Xi laparoscopic lysis of adhesions 2. Robotic-assisted daVinci Xi laparoscopic appendectomy 3. Robotic-assisted daVinci Xi laparoscopic repair of indirect right inguinal hernia without mesh Anesthesia: GETA, local Estimated Blood Loss (ml): 5 Pathology: other (appendix) Condition: stable Disposition: Same-day Operative Findings: 1. Peritoneal lesions right upper quadrant abdominal wall at hepatic flexure lysed with vessel sealer 2. Internal hernia falciform ligament similarly divided with vessel sealer 3. Adhesions along hepatic fossa lysed vessel sealer 4. Long appendix with adhesion to right ovary deep pelvis with adhesions lysed and appendectomy performed 5. Indirect right inguinal hernia 1 cm oversewn without mesh INDICATIONS: The patient is a 49-year-old female who reports severe right lower quadrant pain including right upper quadrant abdominal pain. She has history of multiple abdominal surgeries and peritoneal adhesions. With location of her right lower quadrant abdominal pain, appendectomy was described for chronic appendicitis. Benefits and risks, including infection, open surgery, and bleeding for additional surgery was discussed at length. Informed consent was obtained. All questions of the patient and family were answered. DESCRIPTION: The patient was transferred to the operating room and placed in supine position. The patient had previously voided. The abdomen was then prepped and draped in standard sterile fashion as Ioban was placed along the abdomen to minimize any contamination of skin floor. After a timeout protocol was performed, attention was then brought to the left upper quadrant whereby a 0 degree 5 mm laparoscopic trocar entry was performed. The abdominal cavity was entered and insufflated to 15 mmHg pressure, which was tolerated well. Diagnostic laparoscopy demonstrated no injury to bowel, viscera or mesentery. Next a robotic 8-mm trocar was placed along the left lower quadrant, 10-cm lateral to the midline. A 12 mm port was placed along the left upper quadrant and another 8-mm port left lateral abdominal wall. Ports were placed 8 cm apart from each other including 15-20 cm away from the target anatomy of the right pelvis. The robotic da Edwige XI system was primed and docked from the right side of the patient. Using atraumatic graspers and vessel sealer, the robotic system was docked and primed as described. Instruments were interchanged by the commercial lines assistant including graspers, robotic stapler and vessel sealer. Next, attention was brought to identify the cecum. A systematic view within the abdominal cavity was started with the small bowel which was unremarkable. The base of the cecum was unremarkable. The appendix was tethered deep into the right pelvis adherent to the right ovary consistent with the patient's pain. Surrounding adhesive bands were lysed to prepare for appendectomy. The mesoappendix was mobilized using vessel sealer. The appendix was resected at its base using robotic blue staple load 45 mm. The staple line was hemostatic. Next attention was brought to the right groin where a 1 cm defect consistent with an indirect inguinal hernia was identified. Using 2-0 nonabsorbable VLOC, the hernia defect was oversewn after being explored for any inguinal lipomas. Next attention was brought to the right upper quadrant where an internal hernia involving the falciform ligament and greater omentum was found. The adhesive bands were identified and divided using vessel sealer. The right chest wall was explored at the patient's location of pain and adhesions were similarly lysed. Hemostasis was checked. The robot was undocked. I re-scrubbed into the case. The specimen was removed from the abdominal cavity through the 12 mm trocar at the left upper quadrant. All instruments and pneumoperitoneum were evacuated from the abdominal cavity. Local anesthetic was infiltrated to all wounds for postop analgesia. All incisions were also cleansed with diluted hydrogen peroxide. The incisions were closed with 4-0 Monocryl. Exofin glue was applied to the rest of the skin incisions. The patient had tolerated the procedure well. The patient was extubated successfully. The patient was transferred to the postanesthesia care unit in stable condition. Plan - Discharge Summary Discharge Rx Participant: No New Discharge Prescriptions: New Docusate [Colace] 100 mg PO BID #20 capsule Polyethylene Glycol 3350 [Miralax] 17 gm PO DAILY #527 gm Acetaminophen Tab [Tylenol Tab] 500 mg PO Q6H PRN #30 tablet PRN Reason: Pain Continue Fluticasone Nasal [place] [Flonase Nasal [place]] 1 spr EA NOSTRIL DAILY Cholecalciferol [Vitamin D3 (25 Mcg = 1000 Iu)] 1,000 unit PO DAILY Multivitamins, Thera [Multivitamin (formulary)] 1 tab PO DAILY Magnesium 200 mg PO DAILY Cyanocobalamin (Vitamin B-12) [Vitamin B-12] 1,000 mcg PO DAILY Calcium Citrate 250 mg PO DAILY Biotin 5 mg PO DAILY SUMAtriptan SUCCINATE [Imitrex] 100 mg PO DAILY PRN PRN Reason: migraines Elderberry Fruit and Flower [Black Elderberry 575 mg Cap] 1 each PO DAILY Discharge Medication List Fluticasone Nasal [place] [Flonase Nasal [place]] 1 spr EA NOSTRIL DAILY 08/09/16 [History] Biotin 5 mg PO DAILY 11/29/16 [History] Calcium Citrate 250 mg PO DAILY 11/29/16 [History] Cholecalciferol [Vitamin D3 (25 Mcg = 1000 Iu)] 1,000 unit PO DAILY 11/29/16 [History] Cyanocobalamin (Vitamin B-12) [Vitamin B-12] 1,000 mcg PO DAILY 11/29/16 [History] Magnesium 200 mg PO DAILY 11/29/16 [History] Multivitamins, Thera [Multivitamin (formulary)] 1 tab PO DAILY 11/29/16 [History] Elderberry Fruit and Flower [Black Elderberry 575 mg Cap] 1 each PO DAILY 05/10/20 [History] SUMAtriptan SUCCINATE [Imitrex] 100 mg PO DAILY PRN 05/10/20 [History] Acetaminophen Tab [Tylenol Tab] 500 mg PO Q6H PRN #30 tablet 05/28/20 [Rx] Docusate [Colace] 100 mg PO BID #20 capsule 05/28/20 [Rx] Polyethylene Glycol 3350 [Miralax] 17 gm PO DAILY #527 gm 05/28/20 [Rx] Follow up Appointment(s)/Ref[facility] [place] [facility] - 06/02/20 Patient Instructions/Handouts: *Surgery [facility] - (Anesthesia) Discharge Instructions Outpatient Surgery, Laparoscopic Herniorrhaphy (DC), Lysis of A bdominal Adhesions (DC), Laparoscopic Appendectomy (DC), Inguinal Hernia Repair (DC), Lysis of Abdominal Adhesions (IP), Constipation (DC) Activity/Diet/Wound Care/Special Instructions: No lifting over 10 pounds in 2 weeks until Jun 11. November shower. No bath tub soaks for two weeks until Jun 11 Diet as tolerated. Use Tylenol scheduled for the next 24-48 hours for best pain relief. Use ice along incisions for the today to prevent swelling. Discharge Disposition: HOME SELF-CARE
[2020-05-28] MEDS: HYDROmorphone 0.5 MG/0.5 ML SYRINGE IVP PRN ×3 (11:55→12:21)
[2020-05-28 13:11] VITALS: RESP 17
[2020-05-28 13:43] VITALS: BP 110/68; PULSE 69
== END | disposition home or self-care (01) ==
LOC: OR 06:59
PROVIDERS: ATTEND Surgery Plastic and Reconstructive Surgery
DX: K40.90 Unilateral inguinal hernia, without obstruction or gangrene, not specified as recurrent (principal); K36 Other appendicitis; K66.0 Peritoneal adhesions (postprocedural) (postinfection); M19.90 Unspecified osteoarthritis, unspecified site; G43.919 Migraine, unspecified, intractable, without status migrainosus; M10.9 Gout, unspecified; Z98.84 Bariatric surgery status; Z98.891 History of uterine scar from previous surgery; Z90.49 Acquired absence of other specified parts of digestive tract; Z90.710 Acquired absence of both cervix and uterus; Z98.51 Tubal ligation status; Z98.890 Other specified postprocedural states; Z87.891 Personal history of nicotine dependence; Z82.49 Family history of ischemic heart disease and other diseases of the circulatory system; Z88.6 Allergy status to analgesic agent; Z91.040 Latex allergy status
CPT/HCPCS: 44970; 49650; S2900; 88304

== ENCOUNTER → 2020-06-01 | Outpatient (CLI) | payer BC ==
[~2020-06-01] MED LIST changes: -ACETAMINOPHEN TAB 500 MG TAB PO STA; +DEXAMETHASONE SOD PHOSPHATE 10 MG/ML 1 ML VIAL IM STA; -DEXAMETHASONE SOD PHOSPHATE 10 MG/ML 1 ML VIAL IV ONE; -DEXAMETHASONE SOD PHOSPHATE 10 MG/ML 1 ML VIAL ONE; -GABAPENTIN 300 MG CAP PO STA; -GLYCOPYRROLATE 0.2 MG/ML 2 ML VIAL ONE; -LACTATED RINGERS 1,000 ML IV ONE; -LACTATED RINGERS 1,000 ML IV SCH; -LIDOCAINE 1% INJ 10MG/ML (20 ML MDV) ONE; -LIDOCAINE 1%-EPI 1:100,000 20 ML VIAL SQ ONE; -MIDAZOLAM 2 MG/2 ML VIAL IV ONE; -NEOSTIGMINE 1 MG/ML 10 ML VIAL ONE; -ONDANSETRON 4 MG/2 ML VIAL IVP ONE; -PROPOFOL 10 MG/ML 20 ML VIAL IV ONE; -ROCURONIUM 10 MG/ML (10 ML VIAL) IV ONE; -SCOPOLAMINE 1.5MG/72HR PATCH TRANSDERM STA; -SUCCINYLCHOLINE CHLORIDE 100 MG/5 ML SYR IV ONE; -diphenhydrAMINE 50 MG/ML 1 ML VIAL ONE; -fentaNYL (PF) 50 MCG/ML 2 ML AMP ONE; -metroNIDAZOLE-NS PMX 500 MG in SALINE 1 100ML.BAG IVPB ONE
[2020-06-01 09:21] VITALS: BP 111/76; PULSE 80; RESP 16; TEMP 98.4
== END | disposition home or self-care (01) ==
LOC: PROCWHC3 09:04
PROVIDERS: ATTEND Surgery Plastic and Reconstructive Surgery
DX: T78.40XA Allergy, unspecified, initial encounter (principal)
CPT/HCPCS: 96372; J1100

== ENCOUNTER → 2020-06-02 | Outpatient (CLI) | payer BC ==
[2020-06-02 15:54] VITALS: BP 101/69; PULSE 68; RESP 16; TEMP 98.5; BMI 23.8
--- NOTE | 2020-06-02 16:14 | P.PN ---
Subjective Progress Note Date: 06/02/20 DATE OF SERVICE: 06/02/2020 CHIEF COMPLAINT: Follow up gastric bypass HISTORY OF PRESENT ILLNESS: Lacey Fuentes is a 49-year-old female who is status post gastric bypass on 09/11/16. She is 3 years out. She is status post appendectomy, 05/28/2020. She is POD 5. She comes in with rash from the drapes and is better after decadron. She has no rash on the face. She reports no more pain on the right side. Her highest weight was 268 pounds for a 5 foot 7.75 frame. She comes in weighing 156 pounds from 157 pounds, 2 months ago. She has lost 1 pound in 2 months. She has been able to maintain a 112 pound weight loss, lilfetime. At her height of 5 foot 7.75, her ideal body weight is 158 pounds. Her previous body mass index was 41.1. Today she comes in with body mass index reduced from 41.1 down to 23.9. She has 102 % excess weight loss. PHYSICAL EXAM: VITAL SIGNS: 5 foot 7.75, 156 pounds. Body mass is 23.9 Vital Signs Temp 98.5 F 06/02/20 15:51 Pulse 68 06/02/20 15:51 Resp 16 06/02/20 15:51 BP 101/69 06/02/20 15:51 Pulse Ox GENERAL: Well-developed, pleasant female in no acute distress. ABDOMEN: Soft, nontender, nondistended. Rash along the abdomen. HEENT: No scleral icterus. Extraocular movements grossly intact. Moist mucosa. NECK: Supple without lymphadenopathy. CHEST: Nonlabored respirations. Equal bilateral excursions. CARDIOVASCULAR: Regular rate and rhythm. MUSCULOSKELETAL: No clubbing, cyanosis, or edema. Cranial nerves 2 through 12 grossly within normal limits. NEURO: No focal or lateralizing signs. Grossly within normal limits. PSYCH: Appropriate affect. Alert and oriented to person, place, and time. SKIN: Well perfused. Good skin turgor. ASSESSMENT: 1. Morbid obesity due to excess calories. 2. Body mass index reduced from 41.1.down to 23.9 3. Gastroesophageal reflux disease, resolved. 4. Hypertension, resolved. 5. Obstructive sleep apnea, resolved. 6. Left knee osteoarthritis, resolved. 7. Bilateral osteoarthritis, resolved. 8. Degenerative joint disease of the lower back, resolved. 9. Status post gastric bypass. 10. Panniculitis. 11. Status post massive weight loss 12. Iron deficiency anemia. 13. Right upper abdominal 14. Bilateral inguinal pain 15. History of peritoneal adhesions. PLAN: 1. Decadron as needed for her rash. Objective - Vital Signs Vital signs: Vital Signs Temp 98.5 F 06/02/20 15:51 Pulse 68 06/02/20 15:51 Resp 16 06/02/20 15:51 BP 101/69 06/02/20 15:51 Pulse Ox Intake & Output 06/01/20 06/02/20 06/02/20 18:59 06:59 18:59 Weight 70.76 kg
== END | disposition home or self-care (01) ==
LOC: BARWHC3 14:48
PROVIDERS: ATTEND Surgery Plastic and Reconstructive Surgery
DX: Z48.815 Encounter for surgical aftercare following surgery on the digestive system (principal); E66.01 Morbid (severe) obesity due to excess calories; M79.3 Panniculitis, unspecified; D50.9 Iron deficiency anemia, unspecified; Z68.23 Body mass index [BMI] 23.0-23.9, adult; Z87.19 Personal history of other diseases of the digestive system; Z98.84 Bariatric surgery status
CPT/HCPCS: 99211

== ENCOUNTER → 2020-06-03 | Outpatient (CLI) | payer BC ==
[~2020-06-03] MED LIST changes: +DEXAMETHASONE SOD PHOSPHATE 10 MG/ML 1 ML VIAL IM ONE; -DEXAMETHASONE SOD PHOSPHATE 10 MG/ML 1 ML VIAL IM STA
[2020-06-03 09:59] VITALS: BP 112/74; PULSE 98; RESP 16; TEMP 98.7
== END | disposition home or self-care (01) ==
LOC: PROCWHC3 09:42
PROVIDERS: ATTEND Surgery Plastic and Reconstructive Surgery
DX: T78.1XXA Other adverse food reactions, not elsewhere classified, initial encounter (principal)
CPT/HCPCS: 96372; J1100

== ENCOUNTER → 2023-08-01 | Outpatient (CLI) | payer BC ==
--- NOTE | 2023-08-01 16:32 | P.HPBAR ---
Bariatric H&P - History & Physicial H&P Date: 08/01/23 History & Physicial: Visit/CC: F/U Patient initial contact: Initial weight: 99.79 kg Initial weight in pounds: 220.00 Height: 5 ft 7.75 in Initial BMI: 33.7 Last weight: Current weight: 74.843 kg Current weight in pounds: 165.00 Current BMI: 25.2 [place] body weight (based on NIH guidelines): 62.936 kg Excess body weight loss: 67.6% The patient is a 52 year-old F who presents for Bariatric Assessment. DATE OF SERVICE: 08/01/23 CHIEF COMPLAINT: Status post gastric bypass HISTORY OF PRESENT ILLNESS: Lacey Fuentes is a 53-year-old female who is status post gastric bypass on 09/11/16. She is 7 years out. She presents with new complaints of epigastric abdominal pain including stricture of the esophagus following adjustable gastric band Mariya-en-Y gastric bypass revision. She has maintained her weight loss. She has been lost to follow-up for over 3 years. Her lowest weight was on 145 pounds. She comes in with 20 pound weight gain. Her highest weight was 268 pounds for a 5 foot 7.75 frame. She comes in weighing 165 pounds from 156 pounds, 3 years ago. She has gained 9 pounds in 3 years. She has been able to maintain a 103 pound weight loss, lilfetime. At her height of 5 foot 7.75, her ideal body weight is 158 pounds. Her previous body mass index was 41.1. Today she comes in with body mass index reduced from 41.1 down to 25.3. She has 94 % excess weight loss. PAST MEDICAL HISTORY: 1. Migraines 2. Osteoarthritis of the bilateral hips. 3. Osteoarthritis of the bilateral knees. 4. Gastroesophageal reflux disease. 5. Obstructive sleep apnea. 6. History of morbid obesity. 7. Sleep apnea. PAST SURGICAL HISTORY: 1. Placement of gastric band. 2. Removal of adjustable gastric band. 3. Upper endoscopy. 4. Status post gastric bypass. 5. Appendectomy MEDICATIONS: Home Medications Medication Instructions Recorded Confirmed Fluticasone Nasal [place] [Flonase 1 spr EA NOSTRIL DAILY 08/09/16 08/01/23 Nasal [place]] Biotin 5 mg PO DAILY 11/29/16 08/01/23 Calcium Citrate 250 mg PO DAILY 11/29/16 08/01/23 Cholecalciferol [Vitamin D3 (25 1,000 unit PO DAILY 11/29/16 08/01/23 Mcg = 1000 Iu)] Cyanocobalamin (Vitamin B-12) 1,000 mcg PO DAILY 11/29/16 08/01/23 [Vitamin B-12] Magnesium 200 mg PO DAILY 11/29/16 08/01/23 Multivitamins, Thera [Multivitamin 1 tab PO DAILY 11/29/16 08/01/23 (formulary)] Elderberry Fruit and Flower [Black 1 each PO DAILY 05/10/20 08/01/23 Elderberry 575 mg Cap] SUMAtriptan succinate [Imitrex] 100 mg PO DAILY PRN 05/10/20 08/01/23 Risedronate Sodium [Actonel] 35 mg PO WEEKLY 08/01/23 08/01/23 Previous Rx's Medication Instructions Recorded Acetaminophen Tab [Tylenol Tab] 500 mg PO Q6H PRN #30 tablet 05/28/20 ALLERGIES: Allergies Allergy/AdvReac Type Severity Reaction Status Date / Time Latex, Natural Rubber Allergy Rash/Hives Verified 06/01/20 09:14 aspirin AdvReac bloody nose Verified 06/01/20 09:14 NSAIDS (Non-Steroidal AdvReac GI Upset Verified 06/01/20 09:14 Anti-Inflamma SOCIAL HISTORY: Remote tobacco use. FAMILY HISTORY: Pertinent for morbid obesity. REVIEW OF SYSTEMS: CONSTITUTIONAL: Her highest weight was 268 pounds for a 5 foot 7.75 frame. At her height of 5 foot 7.75, her ideal body weight is 158 pounds. Her previous body mass index was 41.1. GASTROINTESTINAL: History of severe gastroesophageal reflux disease. Has dysphagia. No dumping syndrome. ENDOCRINE: No reports of thyroid or blood sugar glucose intolerance. HEENT: No troubles with vision or hearing. CHEST: No reports of dyspnea on exertion. Has history of snoring, now resolved. CARDIOVASCULAR: No reports of heart attack or chest pain. MUSCULOSKELETAL: Has osteoarthritis of the diffuse joints, improved. NEURO: No reports of stroke or seizure disorders. PSYCH: History of depression without suicidal ideation. HEMATOLOGIC: No reports of easy bruising or bleeding. SKIN: History of rash from panniculitis. PHYSICAL EXAM: VITAL SIGNS: 5 foot 7.75, 165 pounds. Body mass is 25.3 Vital Signs Temp 98.3 F 08/01/23 16:13 Pulse 76 08/01/23 16:13 Resp BP 117/80 08/01/23 16:13 Pulse Ox FiO2 GENERAL: Well-developed, pleasant female in no acute distress. ABDOMEN: Soft, nontender, nondistended. HEENT: No scleral icterus. Extraocular movements grossly intact. Moist mucosa. NECK: Supple without lymphadenopathy. CHEST: Nonlabored respirations. Equal bilateral excursions. CARDIOVASCULAR: Regular rate and rhythm. MUSCULOSKELETAL: No clubbing, cyanosis, or edema. Cranial nerves 2 through 12 grossly within normal limits. NEURO: No focal or lateralizing signs. Grossly within normal limits. PSYCH: Appropriate affect. Alert and oriented to person, place, and time. SKIN: Well perfused. Good skin turgor. ASSESSMENT: 1. Gastrojejunal stricture 2. Body mass index reduced from 41.1.down to 25.3 3. Gastroesophageal reflux disease 4. Hypertension 5. Obstructive sleep apnea 6. Left knee osteoarthritis 7. Bilateral osteoarthritis 8. Degenerative joint disease of the lower back 9. Status post gastric bypass. 10. Panniculitis. 11. Status post massive weight loss 12. Iron deficiency anemia. 13. Right upper abdominal 14. Bilateral inguinal pain 15. History of peritoneal adhesions. 16. Morbid obesity due to excess calories. PLAN: 1. Recommend upper endoscopy with dilation of her gastrojejunal stricture 2. Recommend bariatric labst for nutritional deficiencies 3. She is elevated risk for complications including perforation due to pre- existing history of her to bypass revision Past Medical History Past Medical History: Osteoarthritis (OA) Additional Past Medical History / Comment(s): Hx hiatal hernia, migraines, constipation, gout, History of Any Multi-Drug Resistant Organisms: None Reported Past Surgical History: Appendectomy, Bariatric Surgery, Section, Cholecystectomy, Hernia Repair, Hysterectomy, Tonsillectomy, Tubal Ligation Additional Past Surgical History / Comment(s): LAP BAND SURGERY x 2, LAP BAND REMOVAL x 2, tubal reversal, lap mariya-en-y with EGD and repair hiatal hernia with mesh 09/11/2016 Past Anesthesia/Blood Transfusion Reactions: No Reported Reaction Past Psychological History: Anxiety Smoking Status: Never smoker Past Alcohol Use History: Rare Additional Past Alcohol Use History / Comment(s): Smoked 2-3 cigarettes per day for 15 yrs and quit 2012 Past Drug Use History: None Reported - Past Family History Mother Family Medical History: Deep Vein Thrombosis (DVT) Sister(s) Family Medical History: Deep Vein Thrombosis (DVT) Father Family Medical History: Deep Vein Thrombosis (DVT) Brother(s) Family Medical History: Deep Vein Thrombosis (DVT) Surgical - Exam Vital Signs Temp Pulse BP 98.3 F 76 117/80 08/01/23 16:13 08/01/23 16:13 08/01/23 16:13 Bariatric Checklist Checklist: Plan: Checklist: EGD: 1. Hiatal hernia: 2. H. Pylori: HgbA1c: Vitamin D: Smoking: Former smoker Primary care physician referral: Dr. Krishna Psychiatry clearance: Cardiology clearance: Sleep study: Diet journal: VTE risk score: VTE risk level: Rehab needs at discharge:
[2023-08-01 16:34] VITALS: BP 117/80; PULSE 76; TEMP 98.3; BMI 25.2
== END ==
LOC: BARWHC3 15:29
PROVIDERS: ATTEND Surgery Plastic and Reconstructive Surgery
DX: E66.01 Morbid (severe) obesity due to excess calories (principal); K31.89 Other diseases of stomach and duodenum; K21.9 Gastro-esophageal reflux disease without esophagitis; I10 Essential (primary) hypertension; G47.33 Obstructive sleep apnea (adult) (pediatric); M17.0 Bilateral primary osteoarthritis of knee; M51.26 Other intervertebral disc displacement, lumbar region; M79.3 Panniculitis, unspecified; D50.9 Iron deficiency anemia, unspecified; R10.10 Upper abdominal pain, unspecified; R10.30 Lower abdominal pain, unspecified; K66.0 Peritoneal adhesions (postprocedural) (postinfection); Z98.84 Bariatric surgery status; Z68.25 Body mass index [BMI] 25.0-25.9, adult; Z86.39 Personal history of other endocrine, nutritional and metabolic disease; Z91.040 Latex allergy status; Z88.6 Allergy status to analgesic agent; Z88.8 Allergy status to other drugs, medicaments and biological substances; Z79.899 Other long term (current) drug therapy; Z87.891 Personal history of nicotine dependence
CPT/HCPCS: 99211

== ENCOUNTER → 2023-08-03 | Outpatient (CLI) | payer BC ==
[2023-08-03 10:37] LABS: Prothrombin Time 10.6 sec (10.0-12.5)
[2023-08-03 14:27] LABS: HCT 41.3 % (37.2-46.3); HGB 13.3 g/dL (12.0-15.0); MCH 28.7 pg (27.0-32.0); MCHC 32.2 g/dL (32.0-37.0); Mean Platelet Volume 10.8 FL (9.5-12.2); NRBC Per 100 WBC 0 X 10*3/uL (0.00-0.01); Platelet Count 272 X 10*3/uL (140-440); RBC 4.64 X 10*6/uL (4.10-5.20); RDW 12.9 % (11.5-14.5); WBC 4.37 X 10*3/uL (4.50-10.00)
[2023-08-03 15:16] LABS: % Iron Saturation 18.33 (12.00-45.00); ALT 12 U/L (8-44); AST 17 U/L (13-35); Albumin 4.5 g/dL (3.8-4.9); Alkaline Phosphatase 85 U/L (41-126); BUN/Creat Ratio 13.62 Ratio (12.00-20.00); Blood Urea Nitrogen 10.9 mg/dL (9.0-27.0); Calcium 9.7 mg/dL (8.7-10.3); Carbon Dioxide 27.1 mmol/L (21.6-31.8); Chloride 104 mmol/L (96-109); Chol/HDL Ratio 2.48 Ratio; Ferritin 15.1 ng/mL (10.0-291.0); Globulin 2.5 g/dL (1.6-3.3); Glucose 102 mg/dL (70-110); Iron 90 UG/DL (50-170); LDL Cholesterol,Calculated 95.5 mg/dL (0.0-131.0); Magnesium 2.2 mg/dL (1.5-2.4); Phosphorus 3.4 mg/dL (2.4-5.1); Potassium 4.7 mmol/L (3.5-5.5); Sodium 142 mmol/L (135-145); Total Bilirubin 0.3 mg/dL (0.3-1.2); Total Iron Binding Capacity 491 UG/DL (228-460); VLDL Calculation 14.18 mg/dL (5.00-40.00)
[2023-08-03 16:05] LABS: Prealbumin 20.8 mg/dL (18.0-42.0)
== END | disposition home or self-care (01) ==
LOC: LABWHC1 09:27
PROVIDERS: ATTEND Surgery Plastic and Reconstructive Surgery
DX: E66.01 Morbid (severe) obesity due to excess calories (principal); M81.0 Age-related osteoporosis without current pathological fracture; E89.1 Postprocedural hypoinsulinemia; E44.0 Moderate protein-calorie malnutrition; E45 Retarded development following protein-calorie malnutrition; E55.9 Vitamin D deficiency, unspecified; K74.1 Hepatic sclerosis; N19 Unspecified kidney failure; T56.894A Toxic effect of other metals, undetermined, initial encounter; K50.90 Crohn's disease, unspecified, without complications
CPT/HCPCS: 36415; 80053; 80061; 82306; 82523; 82525; 82607; 82728; 82746; 83036; 83540; 83550; 83735; 83970; 84100; 84134; 84255; 84425; 84443; 84590; 84630; 85027; 85610; 85730

== ENCOUNTER 2023-09-10 07:30 | Day surgery (SDC) | payer BC ==
--- NOTE | 2023-09-10 07:33 | P.GSHP ---
History of Present Illness H&P Date: 09/10/23 CHIEF COMPLAINT: GERD HISTORY OF PRESENT ILLNESS: The patient is a 53-year-old female who presents reports gastroesophageal reflux disease. Upper endoscopy was offered for further evaluation and management. PAST MEDICAL HISTORY: Please see list. PAST SURGICAL HISTORY: Please see list. MEDICATIONS: Please see list. ALLERGIES: Please see list. SOCIAL HISTORY: No illicit drug use FAMILY HISTORY: No reports of Crohn disease or ulcerative colitis. REVIEW OF ORGAN SYSTEMS: CONSTITUTIONAL: No reports of fevers or chills. GI: Denies any blood in stools or constipation. PHYSICAL EXAM: VITAL SIGNS: Stable GENERAL: Well-developed and pleasant in no acute distress. HEENT: No scleral icterus. Extraocular movements grossly intact. Moist buccal mucosa. NECK: Supple without lymphadenopathy. CHEST: Unlabored respirations. Equal bilateral excursions. CARDIOVASCULAR: Regular rate and rhythm. Distal 2+ pulses. ABDOMEN: Soft, nondistended. MUSCULOSKELETAL: No clubbing, cyanosis, or edema. ASSESSMENT: 1. Gastroesophageal reflux disease PLAN: 1. Recommend proceeding with an upper endoscopy Past Medical History Past Medical History: GERD/Reflux, Osteoarthritis (OA) Additional Past Medical History / Comment(s): Hx hiatal hernia, migraines, constipation, gout, recent increased GERD & difficulty swallowing pills History of Any Multi-Drug Resistant Organisms: None Reported Past Surgical History: Appendectomy, Bariatric Surgery, Section, Cholecystectomy, Hernia Repair, Hysterectomy, Tonsillectomy, Tubal Ligation Additional Past Surgical History / Comment(s): LAP BAND SURGERY x 2, LAP BAND REMOVAL x 2, tubal reversal, lap mateo-en-y with EGD and repair hiatal hernia with mesh 09/11/2016 Past Anesthesia/Blood Transfusion Reactions: No Reported Reaction Smoking Status: Former smoker - Past Family History Mother Family Medical History: Deep Vein Thrombosis (DVT) Sister(s) Family Medical History: Deep Vein Thrombosis (DVT) Father Family Medical History: Deep Vein Thrombosis (DVT) Brother(s) Family Medical History: Deep Vein Thrombosis (DVT) Medications and Allergies Home Medications Medication Instructions Recorded Confirmed Type Fluticasone Nasal [place] [Flonase 1 spr EA NOSTRIL DAILY 08/09/16 09/05/23 History Nasal [place]] Biotin 5 mg PO DAILY 11/29/16 09/05/23 History Calcium Citrate 250 mg PO DAILY 11/29/16 09/05/23 History Cholecalciferol [Vitamin D3 (25 1,000 unit PO DAILY 11/29/16 09/05/23 History Mcg = 1000 Iu)] Cyanocobalamin (Vitamin B-12) 1,000 mcg PO DAILY 11/29/16 09/05/23 History [Vitamin B-12] Magnesium 200 mg PO DAILY 11/29/16 09/05/23 History Multivitamins, Thera [Multivitamin 1 tab PO DAILY 11/29/16 09/05/23 History (formulary)] Elderberry Fruit and Flower [Black 1 each PO DAILY 05/10/20 09/05/23 History Elderberry 575 mg Cap] SUMAtriptan succinate [Imitrex] 100 mg PO DAILY PRN 05/10/20 09/05/23 History Acetaminophen Tab [Tylenol Tab] 500 mg PO Q6H PRN #30 tablet 05/28/20 09/05/23 Rx Risedronate Sodium [Actonel] 35 mg PO Q7D 08/01/23 09/05/23 History Allergies Allergy/AdvReac Type Severity Reaction Status Date / Time Latex, Natural Rubber Allergy Rash/Hives Verified 09/05/23 16:09 aspirin AdvReac bloody nose Verified 09/05/23 16:09 NSAIDS (Non-Steroidal AdvReac GI Upset Verified 09/05/23 16:09 Anti-Inflamma
[2023-09-10] MEDS: LACTATED RINGERS 1,000 ML IV SCH (08:39)
[2023-09-10] MEDS ORDERED: PROPOFOL 10 MG/ML 20 ML VIAL IV ONE (08:45)
[2023-09-10] MEDS ORDERED: LIDOCAINE 1% INJ 10MG/ML (20 ML MDV) ONE (08:45)
[2023-09-10 09:09] VITALS: TEMP 98
--- NOTE | 2023-09-10 09:12 | P.PCN ---
Date of Procedure: 09/10/23 Description of Procedure: PREOPERATIVE DIAGNOSIS: Dysphagia. s/p Mariya-en-y gastric bypass. POSTOPERATIVE DIAGNOSIS: Dysphagia. s/p Mariya-en-y gastric bypass. Gastrojejunal stricture without chronic ulcer without perforation OPERATION: Esophagogastrojejunoscopy with balloon dilatation from 15 to 20 mm. SURGEON: Kayleigh Workman MD ANESTHESIA: MAC. INDICATIONS: The patient is a 53-year-old female who presents with a history of dysphagia, gastric bypass including new-onset nausea and vomiting. Benefits and risks of the procedure were described. Informed consent was obtained. DESCRIPTION: The patient was brought into the endoscopy suite and laid in the left lateral decubitus position. After a timeout was confirmed, the procedure was initiated. An Olympus gastroscope was passed along the posterior oropharynx down to the distal esophagus where the squamocolumnar junction was unremarkable. The gastric pouch was entered. A gastrojejunal stricture of 15 mm was found as the adult gastroscope was 9.5 mm in size. A [email or web address] balloon dilator was placed through the scope. Final insufflation up to 20 mm was performed with a total of 2 minutes. The scope was advanced up to 60 cm from the incisors into the Mariya limb. The mucosa of the gastrojejunal anastomosis was intact. However no chronic gastrojejunal marginal ulcer was encountered. No full-thickness injury was encountered. The GI tract was desufflated. The patient tolerated the procedure well. FINDINGS: Squamocolumnar junction unremarkable at 38 cm. Stricture of approximately 15 mm encountered. No chronic gastrojejunal ulceration encountered. Successful balloon dilatation to 20 mm. Diaphragmatic hiatus at 40 cm. Gastric pouch 2 cm. RECOMMENDATIONS: Upper endoscopy as needed Plan - Discharge Summary Discharge Rx Participant: Yes New Discharge Prescriptions: Continue RX: Fluticasone Nasal Wilbur [Flonase Nasal Wilbur] 1 spr EA NOSTRIL DAILY RX: Cholecalciferol [Vitamin D3 (25 Mcg = 1000 Iu)] 1,000 unit PO DAILY RX: Multivitamins, Thera [Multivitamin (formulary)] 1 tab PO DAILY RX: Magnesium 200 mg PO DAILY RX: Cyanocobalamin (Vitamin B-12) [Vitamin B-12] 1,000 mcg PO DAILY RX: Calcium Citrate 250 mg PO DAILY RX: Biotin 5 mg PO DAILY RX: SUMAtriptan succinate [Imitrex] 100 mg PO DAILY PRN PRN Reason: migraines RX: Elderberry Fruit and Flower [Black Elderberry 575 mg Cap] 1 each PO DAILY RX: Acetaminophen Tab [Tylenol] 500 mg PO Q6H PRN #30 tablet PRN Reason: Pain RX: Risedronate Sodium [Actonel] 35 mg PO Q7D Discharge Medication List RX: Fluticasone Nasal Wilbur [Flonase Nasal Wilbur] 1 spr EA NOSTRIL DAILY 08/09/16 [History] RX: Biotin 5 mg PO DAILY 11/29/16 [History] RX: Calcium Citrate 250 mg PO DAILY 11/29/16 [History] RX: Cholecalciferol [Vitamin D3 (25 Mcg = 1000 Iu)] 1,000 unit PO DAILY 11/29/16 [History] RX: Cyanocobalamin (Vitamin B-12) [Vitamin B-12] 1,000 mcg PO DAILY 11/29/16 [History] RX: Magnesium 200 mg PO DAILY 11/29/16 [History] RX: Multivitamins, Thera [Multivitamin (formulary)] 1 tab PO DAILY 11/29/16 [History] RX: Elderberry Fruit and Flower [Black Elderberry 575 mg Cap] 1 each PO DAILY 05/10/20 [History] RX: SUMAtriptan succinate [Imitrex] 100 mg PO DAILY PRN 05/10/20 [History] RX: Acetaminophen Tab [Tylenol] 500 mg PO Q6H PRN #30 tablet 05/28/20 [Rx] RX: Risedronate Sodium [Actonel] 35 mg PO Q7D 08/01/23 [History] [facility]Ref[facility] [place] [facility] - [facility]23 Patient Instructions/Handouts: Esophageal Dilation (GEN) Discharge Disposition: HOME SELF-CARE
[2023-09-10 09:42] VITALS: BP 113/73; PULSE 63; RESP 16
== END 2023-09-10 09:35 | disposition home or self-care (01) ==
LOC: ORWHC2ENDO 07:30
PROVIDERS: ATTEND Surgery Plastic and Reconstructive Surgery
DX: K21.00 Gastro-esophageal reflux disease with esophagitis, without bleeding (principal); K56.699 Other intestinal obstruction unspecified as to partial versus complete obstruction; Z98.84 Bariatric surgery status; K21.9 Gastro-esophageal reflux disease without esophagitis; Z90.49 Acquired absence of other specified parts of digestive tract; Z79.899 Other long term (current) drug therapy; Z98.891 History of uterine scar from previous surgery; Z90.710 Acquired absence of both cervix and uterus; Z98.51 Tubal ligation status; Z87.891 Personal history of nicotine dependence
CPT/HCPCS: 43245; J2001; J2704; C1726; 43249

== ENCOUNTER → 2023-11-21 | Outpatient (CLI) | payer BC ==
[2023-11-21 15:13] VITALS: BP 110/75; PULSE 67; RESP 16; TEMP 98.5; BMI 25.1
--- NOTE | 2023-11-21 15:23 | P.BASOAP ---
Subjective Progress Note Date: 11/21/23 DATE OF SERVICE: 11/21/23 CHIEF COMPLAINT: Status post gastric bypass HISTORY OF PRESENT ILLNESS: Lacey Fuentes is a 53-year-old female who is status post gastric bypass on 09/11/16. She is 7 years out. She comes in with weight gain. She reports not eating much. Her ideal weight had been 150 pounds however she has gained 15 to 20 pounds. She is not keeping a food diary journal. She had prior dysphagia. She wants to lose weight gain. Her highest weight was 268 pounds for a 5 foot 7.75 frame. She comes in weighing 164 pounds from 157 pounds, 4 years ago. She has gained 8 pounds in 4 years. Lifetime weight loss of 104 pounds. At her height of 5 foot 7.75, her ideal body weight is 158 pounds. Her previous body mass index was 41.1. Lifetime percent excess weight loss 95% PHYSICAL EXAM: VITAL SIGNS: 5 foot 7.75, 164 pounds. Body mass is 25.1 Vital Signs Temp 98.5 F 11/21/23 15:04 Pulse 67 11/21/23 15:04 Resp 16 11/21/23 15:04 BP 110/75 11/21/23 15:04 Pulse Ox FiO2 GENERAL: Well-developed, pleasant female in no acute distress. ABDOMEN: Soft, nontender, nondistended. HEENT: No scleral icterus. Extraocular movements grossly intact. Moist mucosa. NECK: Supple without lymphadenopathy. CHEST: Nonlabored respirations. Equal bilateral excursions. CARDIOVASCULAR: Regular rate and rhythm. MUSCULOSKELETAL: No clubbing, cyanosis, or edema. Cranial nerves 2 through 12 grossly within normal limits. NEURO: No focal or lateralizing signs. Grossly within normal limits. PSYCH: Appropriate affect. Alert and oriented to person, place, and time. SKIN: Well perfused. Good skin turgor. EGD FINDINGS, August 2023: Squamocolumnar junction unremarkable at 38 cm. Stricture of approximately 15 mm encountered. No chronic gastrojejunal ulceration encountered. Successful balloon dilatation to 20 mm. Diaphragmatic hiatus at 40 cm. Gastric pouch 2 cm. Labs reviewed from July 2023 without vitamin deficiencies ASSESSMENT: 1. Morbid obesity due to excess calories. 2. Body mass index reduced from 41.1.down to 25.1 3. Gastroesophageal reflux disease, resolved. 4. Hypertension, resolved. 5. Obstructive sleep apnea 6. Left knee osteoarthritis 7. Bilateral osteoarthritis 8. Degenerative joint disease of the lower back 9. Status post gastric bypass. 10. Panniculitis. 11. Status post massive weight loss 12. Iron deficiency anemia. 13. Right upper abdominal 14. Bilateral inguinal pain 15. History of peritoneal adhesions. 16. Gastrojejunal stricture PLAN: 1. She is status post upper endoscopy with dilation and has resolved dysphagia. 2. To start weight loss, recommend food diary journal. 3. Protein intake 90 to 100 g daily described. Objective - Vital Signs Vital signs: Vital Signs Temp 98.5 F 11/21/23 15:04 Pulse 67 11/21/23 15:04 Resp 16 11/21/23 15:04 BP 110/75 11/21/23 15:04 Pulse Ox FiO2 Intake & Output 11/20/23 11/21/23 11/21/23 18:59 06:59 18:59 Weight 74.389 kg Assessment/Plan Plan: Date: 11/21/23 Initial Weight: 99.79 kg Initial BMI: 33.7 Current Weight: 74.389 kg Current BMI: 25.1 Type of Surgery: Mariya-en-Y Gastric Bypass Total Volume in Band: Previous Volume: Volume Removed: Volume Added: Band Size:
== END ==
LOC: BARWHC3 14:47
PROVIDERS: ATTEND Surgery Plastic and Reconstructive Surgery
DX: E66.01 Morbid (severe) obesity due to excess calories (principal); G47.33 Obstructive sleep apnea (adult) (pediatric); M17.12 Unilateral primary osteoarthritis, left knee; M47.816 Spondylosis without myelopathy or radiculopathy, lumbar region; M79.3 Panniculitis, unspecified; D50.9 Iron deficiency anemia, unspecified; R10.11 Right upper quadrant pain; R63.4 Abnormal weight loss; R10.30 Lower abdominal pain, unspecified; K31.89 Other diseases of stomach and duodenum; Z87.42 Personal history of other diseases of the female genital tract; Z98.84 Bariatric surgery status; Z68.25 Body mass index [BMI] 25.0-25.9, adult; Z91.040 Latex allergy status; Z88.6 Allergy status to analgesic agent; Z88.8 Allergy status to other drugs, medicaments and biological substances; Z87.891 Personal history of nicotine dependence; Z90.3 Acquired absence of stomach [part of]
CPT/HCPCS: 99211